=== PATIENT | female | born 1955 | race Caucasian/White ===

== ENCOUNTER 2020-08-27 09:52 | Outpatient (REF) | payer OTHER, SELFPAY ==
[2020-08-27 12:19] LABS: MANUAL DIFF FLAG NO
[2020-08-27 12:22] LABS: Basophils Percent Auto 0.6 % (0-2); Eosinophils Absolute Auto 0.3 X10*3/uL (0.0-0.4); Imm Gran Abs Auto 0.01 X10*3/uL (0.00-0.03); Imm Gran Pct Auto 0.2 % (0.0-0.4); Lymphocytes Absolute Auto 1.9 X10*3/uL (1.2-4.9); Lymphocytes Percent Auto 29.7 % (20-40); Mean Corpuscular HGB Conc 33.3 g/dl (31.0-35.0); Mean Corpuscular Hemoglobin 30.7 pg (27.0-33.0); Mean Corpuscular Volume 92.2 fL (80-98); Mean Platelet Volume 10.9 fL (9.4-12.3); Monocytes Absolute Auto 0.3 X10*3/uL (0.1-1.2); Monocytes Percent Auto 4.6 % (2-11); Neutrophils Absolute Auto 3.9 X10*3/uL (2.0-8.3); Neutrophils Percent Auto 60.9 % (45-73); Platelet Count 204 X10*3/uL (160-400); Red Blood Count 4.23 X10*6/uL (4.20-5.50); Red Cell Distribution Width 12.4 % (11.0-16.0); White Blood Count 6.3 X10*3/uL (4.8-10.8)
[2020-08-27 12:41] LABS: Alanine Aminotransferase 13 U/L (0-31); Albumin Level 4.5 g/dL (3.5-5.0); Alkaline Phosphatase 130 U/L (39-117); Anion Gap 12 (12-20); Aspartate Amino Transferase 19 U/L (5-31); Bilirubin Total 0.5 mg/dL (0.0-1.0); Blood Urea Nitrogen 15 mg/dL (9-16); Calcium 9.8 mg/dL (8.4-10.2); Carbon Dioxide 26 mmol/L (22-29); Chloride 105 mmol/L (96-108); Cholesterol 308 mg/dL; Estimated Glomerular Filt Rate > 60; Glucose Fasting 87 mg/dL (60-99); Glucose Urine UA NEG (NEG); HDL Cholesterol 49 mg/dL; LDL Cholesterol Calculated 235 mg/dl; Leukocyte Esterase Urine NEG (NEG); Nitrite Urine NEG (NEG); PH 5.5 (5.0-8.0); Potassium 4.2 mmol/l (3.3-5.1); Sodium 139 mmol/L (135-145); Specific Gravity - Urine >= 1.030 (1.005-1.025); Total Protein 7.1 g/dL (6.5-8.0); Triglycerides 120 mg/dL; Urine Blood 2+ (NEG); Urine Ketones NEG (NEG); Urine Protein NEG (NEG-TRACE)
[2020-08-27 12:43] LABS: Appearance Urine CLOUDY; Color Urine YELLOW
[2020-08-27 12:53] LABS: Amorphous Sediment Urine 3+ /LPF; Mucus Urine 2+ /LPF; WBC Urine 0 /HPF (0-4)
[2020-08-27 13:03] LABS: Thyroid Stimulating Hormone 0.82 mIU/mL (0.32-4.0); Vitamin D 25-OH Total 23.6 ng/mL (>30)
== END 2020-08-27 09:53 | disposition home or self-care (01) ==
LOC: HO.10HDL 09:52
PROVIDERS: Visit Provider Internal Medicine
DX: E55.9 Vitamin D deficiency, unspecified (principal); R03.0 Elevated blood-pressure reading, without diagnosis of hypertension; E78.00 Pure hypercholesterolemia, unspecified; R00.2 Palpitations
CPT/HCPCS: 36415; 80053; 80061; 81001; 82306; 84443; 85025

== ENCOUNTER 2020-09-29 09:00 | Outpatient (REF) | payer OTHER, SELFPAY ==
--- NOTE | 2020-09-29 09:06 | MM_ITS ---
EXAMINATION: MM SCREENING DIGITAL BREAST TOMOSYNTHESIS, BILATERAL CLINICAL INFORMATION: Screening. Asymptomatic. The lifetime risk of breast cancer based on the Tyrer-Cuzick Model is 7%. COMPARISON: Mammography: 09/24/2019, 08/19/2018, 02/14/2018, 07/26/2017 TECHNIQUE: Digital breast tomosynthesis is performed in both the craniocaudal and mediolateral oblique views along with computer-aided detection (CAD). Synthesized 2D images are generated from the tomosynthesis. FINDINGS: The breasts are heterogeneously dense, which may obscure small masses (ACR BI-RADS breast composition Category c). Parenchymal pattern is similar to prior studies. There is fibronodular parenchymal pattern. There is no significant mass or architectural abnormality or developing density. No suspicious calcifications. The skin contours are smooth. MM/MM tomosynthesis screening BI IMPRESSION: No significant changes from prior studies. ASSESSMENT: BI-RADS 1: Negative RECOMMENDATION: Routine annual mammography screening. This patient's information was entered into a reminder system with a target due date for their next mammogram.
== END 2020-09-29 09:01 | disposition home or self-care (01) ==
LOC: HO.MAMMO 09:00
PROVIDERS: PCP Internal Medicine; Visit Provider Obstetrics & Gynecology
DX: Z12.31 Encounter for screening mammogram for malignant neoplasm of breast (principal)
CPT/HCPCS: 77063; 77067

== ENCOUNTER 2020-11-14 08:39 | Outpatient (REF) | payer OTHER, SELFPAY ==
[2020-11-14 09:44] LABS: Influenza A PCR NEGATIVE (Negative); Influenza B PCR NEGATIVE (Negative); Resp Syncy Virus RNA Qual PCR NEGATIVE (Negative); SARS COV2 PCR INHOUSE NEGATIVE (Negative)
== END 2020-11-14 08:40 | disposition home or self-care (01) ==
LOC: HO.LAB 08:39
PROVIDERS: Visit Provider Internal Medicine
DX: Z20.828 Contact with and (suspected) exposure to other viral communicable diseases (principal)
CPT/HCPCS: 0241U

== ENCOUNTER 2020-12-01 | Outpatient (REF) | payer OTHER, SELFPAY ==
[2020-12-08 15:02] LABS: HPV mRNA E6/E7 rflx Not Detected (Not Detected)
== END 2020-12-01 00:01 | disposition home or self-care (01) ==
LOC: HO.LNP
PROVIDERS: Visit Provider Obstetrics & Gynecology
DX: Z12.4 Encounter for screening for malignant neoplasm of cervix (principal)
CPT/HCPCS: 87624; 88141; 88142

== ENCOUNTER 2020-12-03 08:41 | Emergency (ER) | payer OTHER, SELFPAY ==
--- NOTE | 2020-12-03 08:46 | ED.CHESTPAIN ---
HPI - Chest Pain General Chief Complaint: Chest Pain Stated Complaint: chest pain Time Seen by Provider: 12/03/20 08:45 Source: patient Mode of arrival: ambulatory Limitations: no limitations History of Present Illness MD complaint: chest pain Pertinent past history: other (dx with COVID at [facility] more than 10 days ago) Onset (ago): minute(s) (chest pain started around 8am) Timing of current episode: constant Prior episodes: No Onset: during rest Pain location: substernal Pain radiation: none Severity: mild Quality: aching Relieving factors: nothing Exacerbating factors: nothing Context: recent illness (dx with COVID) Associated symptoms: dyspnea Treatment prior to arrival: aspirin (took 324mg ASA) Related Data Home Medications Medication Instructions Recorded Confirmed albuterol sulfate [Ventolin HFA] INHALATION 12/03/20 12/03/20 juwcbrejlh-hzyqrjikevcft-wcug 1 tab PO Q6H PRN 12/03/20 12/03/20 rizatriptan 1 tab PO DAILY 12/03/20 12/03/20 ropinirole 1 - 2 tab PO BEDTIME 12/03/20 12/03/20 Allergies Allergy/AdvReac Type Severity Reaction Status Date / Time diphenhydramine Allergy Agitated Verified 12/03/20 09:00 [From Benadryl] Review of Systems Review of Systems: Constitutional : No Weight loss, No Fever, No Chills ENT/Mouth : No sore throat, No Rhinorrhea Eyes: No Eye Pain, No Swelling Cardiovascular : pos Chest Pain, pos SOB, no Dyspnea on Exertion, No Orthopnea, No Edema, No Palpitations Respiratory : No Cough, No Sputum Gastrointestinal : no Nausea, No Vomiting, No Diarrhea, No abdominal Pain, No Hematochezia, No Melena Genitourinary : No Dysuria, No Urinary Frequency Musculoskeletal : No joint pain, No Myalgias, No Joint Swelling Skin : No Skin Lesions, No rash Neuro : No Weakness, No Numbness, No Dizziness, No Headache, felt weak and near syncopal after getting out of shower Psych : No Anxiety/Panic, No Depression Heme/Lymph: No Bruising, No Lymphadenopathy Endocrine : No Polyuria, No Polydipsia All other systems reviewed and are negative [facility] Past Medical History Attestation statement: The following information was validated with the patient. Medical History GERD (gastroesophageal reflux disease) Hypercholesteremia Migraine Restless leg syndrome Surgical History History of left knee replacement Social History Social History (Updated 12/03/20 @ 09:02 by Chanell Noel DO) Smoking Status: Never smoker Smoked in Last 30 Days: No Use of substances other than those prescribed or required for medical reasons: No Advance Directives: No Advance Directives Information Provided: No Advance Directives Date on File: 08/27/20 Physical Exam Vital Signs: Vital Signs: Last Vital Signs Temp 98.4 F 12/03/20 12:16 Pulse 57 12/03/20 12:16 Resp 16 12/03/20 12:16 BP 130/67 12/03/20 12:16 Pulse Ox 99 12/03/20 12:16 Body Mass Index 32.4 Appearance: Alert. Oriented X3. No acute distress. Eyes: Pupils equal, round and reactive to light. ENT: Pharynx normal. Neck: Normal inspection. Neck supple. CVS: Normal heart rate and rhythm. Pulses normal. Respiratory: No respiratory distress. Breath sounds normal. Abdomen: Soft and non-tender. Skin: Skin warm and dry. Normal skin color. Normal skin turgor. Extremities: No lower extremity edema. No calf ttp Neuro: Oriented X 3. No motor deficit. No sensory deficit. Course Course Course Narrative: repeat trop negative, PE negative, EKG negative stable for DC MDM - Chest Pain MDM Narrative Medical decision making narrative: 65 yo female with recent COVID dx here with chest pain while in the shower - she took ASA prior to arrival, no prior cardiac hx at this time will need labs, troponin x 2, EKG, CTA given COVID dx and possibility of PE - patient declines pain medications at this time. Lab Data Result diagrams: 12/03/20 09:12 12/03/20 09:12 Labs: Lab Results 12/03/20 12/03/20 12/03/20 Range/Units 09:12 09:12 09:12 WBC 6.7 (4.8-10.8) X10*3/uL RBC 4.51 (4.20-5.50) X10*6/uL Hgb 13.6 (12.0-16.0) g/dl Hct 41.9 (37-47) % MCV 92.9 (80-98) fL MCH 30.2 (27.0-33.0) pg MCHC 32.5 (31.0-35.0) g/dl RDW 12.2 (11.0-16.0) % Plt Count 252 (160-400) X10*3/uL MPV 10.0 (9.4-12.3) fL Immature Gran % (Auto) 0.3 (0.0-0.4) % Neut % (Auto) 62.8 (45-73) % Lymph % (Auto) 27.6 (20-40) % [place] % (Auto) 4.5 (2-11) % Eos % (Auto) 4.5 H (0-4) % Baso % (Auto) 0.3 (0-2) % Lymph # (Auto) 1.8 (1.2-4.9) X10*3/uL [place] # (Auto) 0.3 (0.1-1.2) X10*3/uL Eos # (Auto) 0.3 (0.0-0.4) X10*3/uL Baso # (Auto) 0.0 (0.0-0.2) X10*3/uL Abs Immat Gran (auto) 0.02 (0.00-0.03) X10*3/uL Absolute Neuts (auto) 4.2 (2.0-8.3) X10*3/uL Absolute Nucleated RBC 0.000 (0.0-0.012) X10*3/uL Nucleated RBC % (auto) 0.0 (0.0-0.2) /100WBC PT (10.8-13.0) SEC INR (0.9-1.1) APTT (24.1-38.0) SEC Sodium 141 (135-145) mmol/L Potassium 4.7 (3.3-5.1) mmol/l Chloride 104 (96-108) mmol/L Carbon Dioxide 24 (22-29) mmol/L Anion Gap 18 (12-20) BUN 12 (9-16) mg/dL Creatinine 0.82 (0.5-1.4) mg/dL Estim Creat Clear Calc 71.7 Estimated GFR > 60 Random Glucose 93 (60-115) mg/dL Calcium 9.9 (8.4-10.2) mg/dL Magnesium 2.3 (1.6-2.6) mg/dL Total Bilirubin 0.4 (0.0-1.0) mg/dL Direct Bilirubin < 0.2 (0.0-0.5) mg/dL AST 22 (5-31) U/L ALT 15 (0-31) U/L Alkaline Phosphatase 131 H (39-117) U/L Troponin I High Sens (<3.5-17.0) ng/L B-Natriuretic Peptide < 10 (<100) pg/mL Total Protein 7.5 (6.5-8.0) g/dL Albumin 4.6 (3.5-5.0) g/dL 12/03/20 12/03/20 12/03/20 Range/Units 09:12 09:12 12:23 WBC (4.8-10.8) X10*3/uL RBC (4.20-5.50) X10*6/uL Hgb (12.0-16.0) g/dl Hct (37-47) % MCV (80-98) fL MCH (27.0-33.0) pg MCHC (31.0-35.0) g/dl RDW (11.0-16.0) % Plt Count (160-400) X10*3/uL MPV (9.4-12.3) fL Immature Gran % (Auto) (0.0-0.4) % Neut % (Auto) (45-73) % Lymph % (Auto) (20-40) % [place] % (Auto) (2-11) % Eos % (Auto) (0-4) % Baso % (Auto) (0-2) % Lymph # (Auto) (1.2-4.9) X10*3/uL [place] # (Auto) (0.1-1.2) X10*3/uL Eos # (Auto) (0.0-0.4) X10*3/uL Baso # (Auto) (0.0-0.2) X10*3/uL Abs Immat Gran (auto) (0.00-0.03) X10*3/uL Absolute Neuts (auto) (2.0-8.3) X10*3/uL Absolute Nucleated RBC (0.0-0.012) X10*3/uL Nucleated RBC % (auto) (0.0-0.2) /100WBC PT 12.6 (10.8-13.0) SEC INR 1.1 (0.9-1.1) APTT 38.3 H (24.1-38.0) SEC Sodium (135-145) mmol/L Potassium (3.3-5.1) mmol/l Chloride (96-108) mmol/L Carbon Dioxide (22-29) mmol/L Anion Gap (12-20) BUN (9-16) mg/dL Creatinine (0.5-1.4) mg/dL Estim Creat Clear Calc Estimated GFR Random Glucose (60-115) mg/dL Calcium (8.4-10.2) mg/dL Magnesium (1.6-2.6) mg/dL Total Bilirubin (0.0-1.0) mg/dL Direct Bilirubin (0.0-0.5) mg/dL AST (5-31) U/L ALT (0-31) U/L Alkaline Phosphatase (39-117) U/L Troponin I High Sens < 3.5 < 3.5 (<3.5-17.0) ng/L B-Natriuretic Peptide (<100) pg/mL Total Protein (6.5-8.0) g/dL Albumin (3.5-5.0) g/dL ECG Data ECG #1: Attestation: I personally reviewed and interpreted this ECG as follows: ECG interpretation date: 12/03/20 ECG interpretation time: 09:08 Interpretation: Rate: 58 Rhythm: sinus bradycardia [place]: left Normal P waves. Normal DAMIAN. Normal QRS complex. ST T wave : normal no JAVID qTC: normal prior studies: artfiact noted but no acute ischemia The study has been interpreted contemporaneously by me. . Discharge Plan Discharge Clinical Impression: Atypical chest pain Patient Disposition: Home, Self-Care Instructions: Chest Pain (ED) Additional Instructions: return to ED for any worsening symptoms or concerns Prescriptions: No Action rizatriptan 10 mg tablet 1 tab PO DAILY RF: 0 hjmmafbpok-ashvixnblxrfe-fkiq 50-325-40 mg tablet 1 tab PO Q6H PRN (Reason: headache) RF: 0 ropinirole 0.25 mg tablet 1 - 2 tab PO BEDTIME RF: 0 albuterol sulfate [Ventolin HFA] 90 mcg/actuation HFA aerosol inhaler inhalation RF: 0 Referrals: Baldo Flaherty MD [Primary Care Provider] - 3 days (if not better) Stand Alone Forms: Work/School Release
--- NOTE | 2020-12-03 08:51 | CT_ITS ---
EXAMINATION: CT ANGIOGRAM OF THE CHEST WITH AND WITHOUT CONTRAST (CT PULMONARY ANGIOGRAM FOR PE) CLINICAL INFORMATION: Reason for Exam chest pain recent COVID dx COMPARISON: CXR from 05/28/2017 TECHNIQUE: Prior to contrast administration, noncontrast localization images were obtained. Subsequently, multidetector volumetric imaging was performed from the thoracic inlet to below the diaphragms following the administration of 80 mL Omnipaque 300 intravenous contrast. No contrast reaction reported. Sagittal, coronal, and MIP oblique sagittal reformatted images were obtained on the CT workstation, uploaded to PACS, and reviewed. This CT examination was performed using dose optimization techniques as appropriate, variously including the following: *Automated exposure control *Adjustment of mA and/or kV according to patient size (this includes techniques or standardized protocols for targeted exams where dose is matched to indication/reason for exam; i.e. extremities or head) *Use of iterative reconstruction technique DLP: Total exam dose-length product 334 mGy-cm FINDINGS: LUNGS AND PLEURA: Trachea and central airways are widely patent and normal in caliber. There are mild patchy groundglass opacities in the anterolateral aspect of the right upper lobe and lateral left lower lobe which, given history of Covid 19 diagnosis, are likely from viral pneumonia. The minimal hazy opacity in the dependent aspect of the right lower lobe probably represents minimal atelectasis. No pulmonary mass, edema, pleural effusion or pneumothorax. QUALITY OF STUDY/CONTRAST BOLUS: Satisfactory. CARDIOVASCULAR: The pulmonary arteries are normal in size. No embolic filling defects are identified within the main, lobar or segmental vessels. The heart size is normal. No pericardial effusion. Thoracic aorta is unremarkable. MEDIASTINUM/LOWER NECK: Thyroid gland and esophagus have a normal appearance. No mediastinal mass. No pneumomediastinum. LYMPHATICS: No pathologic sized axillary, hilar or mediastinal lymph nodes. UPPER ABDOMEN: No contrast reflux into the inferior vena cava. A 1.5 cm simple cyst of the posterior superior spleen was 1.2 cm on 06/20/2019. OSSEOUS STRUCTURES: Multilevel discovertebral degenerative change of the visualized lower cervical and thoracic spine. Within the thoracic spine, disc degeneration is worst at T8-T9 and T9-T10. There is mild pectus excavatum. Hemangioma of the L1 vertebral body. No aggressive osseous lesions. CT/CT angio chest PE protocol IMPRESSION: * No evidence of pulmonary embolism. * Mild peripheral groundglass opacity in lateral right upper lobe and lateral left lower lobe. Although nonspecific, these opacities are probably from viral pneumonitis in this patient with Covid 19 diagnosis.
--- NOTE | 2020-12-03 08:51 | ECG_ITS ---
Test Reason : CHESTPAIN Blood Pressure : / mmHG Vent. Rate : 058 BPM Atrial Rate : 058 BPM P-R Int : 168 ms QRS Dur : 084 ms QT Int : 454 ms P-R-T Axes : 056 -37 020 degrees QTc Int : 445 ms Sinus bradycardia Left axis deviation Nonspecific ST and T wave abnormality Abnormal ECG When compared with ECG of 28-MAY-2017 17:23, Aberrant conduction is no longer Present T wave inversion less evident in Anterior leads Referred By: Chanell Noel Electronically Signed By:LEIGH ALEGRE MD
[2020-12-03 08:55] VITALS: BP 139/86; PULSE 60; RESP 15; TEMP 36.7; BMI 32.4
[2020-12-03] MEDS: 0.9 % Sodium Chloride 500 ML IV (09:13)
[2020-12-03 09:19] LABS: MANUAL DIFF FLAG NO
[2020-12-03 09:22] LABS: Basophils Percent Auto 0.3 % (0-2); Eosinophils Absolute Auto 0.3 X10*3/uL (0.0-0.4); Eosinophils Percent Auto 4.5 % (0-4); Hematocrit 41.9 % (37-47); Hemoglobin 13.6 g/dl (12.0-16.0); Imm Gran Abs Auto 0.02 X10*3/uL (0.00-0.03); Imm Gran Pct Auto 0.3 % (0.0-0.4); Lymphocytes Absolute Auto 1.8 X10*3/uL (1.2-4.9); Lymphocytes Percent Auto 27.6 % (20-40); Mean Corpuscular HGB Conc 32.5 g/dl (31.0-35.0); Mean Corpuscular Hemoglobin 30.2 pg (27.0-33.0); Mean Corpuscular Volume 92.9 fL (80-98); Monocytes Absolute Auto 0.3 X10*3/uL (0.1-1.2); Monocytes Percent Auto 4.5 % (2-11); Neutrophils Absolute Auto 4.2 X10*3/uL (2.0-8.3); Neutrophils Percent Auto 62.8 % (45-73); Platelet Count 252 X10*3/uL (160-400); Red Blood Count 4.51 X10*6/uL (4.20-5.50); Red Cell Distribution Width 12.2 % (11.0-16.0); White Blood Count 6.7 X10*3/uL (4.8-10.8)
[2020-12-03 09:28] LABS: INTERNATIONAL NORM RATIO 1.1 (0.9-1.1); Prothrombin Time 12.6 SEC (10.8-13.0)
[2020-12-03 09:31] LABS: Partial Thromboplastin Time 38.3 SEC (24.1-38.0)
[2020-12-03 09:55] LABS: B Type Natriuretic Peptide < 10 pg/mL (<100)
[2020-12-03 10:14] LABS: Troponin-I High Sensitivity < 3.5 ng/L (<3.5-17.0)
[2020-12-03 10:26] LABS: Alanine Aminotransferase 15 U/L (0-31); Albumin Level 4.6 g/dL (3.5-5.0); Alkaline Phosphatase 131 U/L (39-117); Anion Gap 18 (12-20); Aspartate Amino Transferase 22 U/L (5-31); Bilirubin Direct < 0.2 mg/dL (0.0-0.5); Bilirubin Total 0.4 mg/dL (0.0-1.0); Blood Urea Nitrogen 12 mg/dL (9-16); Calcium 9.9 mg/dL (8.4-10.2); Carbon Dioxide 24 mmol/L (22-29); Chloride 104 mmol/L (96-108); Creatinine Clr Calc Pharmacy 71.7; Estimated Glomerular Filt Rate > 60; Glucose Random 93 mg/dL (60-115); Magnesium 2.3 mg/dL (1.6-2.6); Potassium 4.7 mmol/l (3.3-5.1); Sodium 141 mmol/L (135-145); Total Protein 7.5 g/dL (6.5-8.0)
[2020-12-03] MEDS: iohexoL 350 MG/ML 100 ML INFUS..BTL 65 ML IV (10:44)
[2020-12-03 12:16] VITALS: BP 130/67; PULSE 57; RESP 16; TEMP 36.9; O2SAT 99
[2020-12-03 13:07] LABS: Troponin-I High Sensitivity < 3.5 ng/L (<3.5-17.0)
== END 2020-12-03 13:24 | disposition home or self-care (01) ==
PROVIDERS: Emergency Provider Emergency Medicine; PCP Internal Medicine
DX: R07.89 Other chest pain (principal); Z86.16 Personal history of COVID-19; K21.9 Gastro-esophageal reflux disease without esophagitis
CPT/HCPCS: 36415; 71275; 80048; 80076; 83735; 83880; 84484; 85025; 85610; 85730; 93005; 96360; 99284; Q9967

== ENCOUNTER 2021-01-03 08:56 | Outpatient (REF) | payer OTHER, SELFPAY ==
--- NOTE | ~2021-01-03 | XR_ITS ---
EXAMINATION: XR HIP, RIGHT CLINICAL INFORMATION: Right hip pain COMPARISON: CT pelvis from 06/20/2019 TECHNIQUE: Two views of the right hip. FINDINGS: The visualized right pelvic bones are normal. The right hip joint space is normal. The femoral head is well-positioned within the intact acetabulum. No arthritic deformity, fracture or subluxation. Soft tissues are unremarkable. XR/XR hip RT min 2V IMPRESSION: Normal right hip.
== END 2021-01-03 08:57 | disposition home or self-care (01) ==
LOC: HO.HMGCX 08:56
PROVIDERS: PCP Internal Medicine; Visit Provider Hospitalist
DX: M25.551 Pain in right hip (principal)
CPT/HCPCS: 73502

== ENCOUNTER 2021-01-06 13:50 | Outpatient (REF) | payer OTHER, SELFPAY ==
--- NOTE | ~2021-01-06 | US_ITS ---
EXAMINATION: US EXTREMITY NONVASCULAR, RIGHT CLINICAL INFORMATION: R22.41 - Localized swelling, mass and lump, right lower limb COMPARISON: Radiographs right hip 01/03/2021; CT pelvis with contrast 07/08/2019. TECHNIQUE: Real-time linear ultrasound of the right hip soft tissues is performed, targeted to the area of clinical concern superior lateral aspect. Patient is able to point to area of concern at time of imaging. Grayscale imaging and color Doppler are performed. FINDINGS: There is subtle heterogeneous increased echogenicity within the superficial musculature at the area of clinical concern composition in area of approximately 3.0 x 1.4 x 3.0 cm. There is no posterior shadowing or abnormal color flow. No edema tracking in soft tissue planes. No skin thickening. No fascial herniation. US/US extremity nonvascular IMPRESSION: Subtle heterogeneous increased echogenicity superficial musculature in area of clinical concern measuring 3.0 x 1.4 x 3.0 cm. No edema tracking in soft tissue planes, abnormal color flow, or fascial herniation. Finding is nonspecific and may be best correlated with MRI without and with gadolinium contrast.
== END 2021-01-06 13:51 | disposition home or self-care (01) ==
LOC: HO.HMGCX 13:50
PROVIDERS: Visit Provider Hospitalist
DX: R22.41 Localized swelling, mass and lump, right lower limb (principal)
CPT/HCPCS: 76882

== ENCOUNTER 2021-01-10 07:44 | Outpatient (REF) | payer OTHER, SELFPAY ==
--- NOTE | ~2021-01-10 | MR_ITS ---
EXAMINATION: MR HIP WITHOUT AND WITH CONTRAST, RIGHT CLINICAL INFORMATION: Localized swelling, mass and lump, right lower limb. Patient reports right hip lump and pain, lump for a couple of weeks, anterior lump, tender to lay or push on, and no recent injury. COMPARISON: US right hip 01/06/2021. XR right hip 01/03/2021. TECHNIQUE: MRI of the right hip was performed before and after the intravenous injection of 8.5 mL Gadavist on a high-field scanner. A skin marker was placed at the symptomatic site. FINDINGS: ACETABULAR LABRUM: The anterosuperior labrum is not particularly well evaluated but is otherwise grossly intact. The lateral and posterior labrum are intact. ARTICULAR CARTILAGE/BONE: Intact. MUSCLES/TENDONS: There is moderate right distal gluteus minimus insertional tendinosis and possible low-grade partial tearing. There is mild right distal gluteus medius insertional tendinosis. JOINT FLUID/BURSA: There is no joint effusion. There is trace fluid adjacent to the gluteus minimus and medius insertion sites on the right greater trochanter. This could be related to the tendinosis or minor bursitis. SOFT TISSUES: There is prominent subcutaneous fat. There is one area of deep, slightly posterior, and slightly inferior to the skin marker, lateral to the right hip, which may be slightly more prominent and lobulated, measuring 2.3 x 2.1 x 2.9 cm (CC x TRV x AP). This could just represent a slightly more prominent lobule of fat or a subtle lipoma. A tiny focus of increased T2 signal intensity and enhancement is most likely related to a vessel. INTRAPELVIC STRUCTURES: Unremarkable. MR/MR hip RT wo/w con IMPRESSION: 1. Lobule of prominent subcutaneous fat versus subtle low-grade lipomatous lesion (lipoma) in the subcutaneous fat lateral to the right hip. Correlate clinically. 2. Moderate right distal gluteus minimus insertional tendinosis and possible low-grade partial tearing. Mild right distal gluteus medius insertional tendinosis. Trace fluid adjacent to these tendon insertions which could be related to the tendinosis or minor trochanteric bursitis.
== END 2021-01-10 07:45 | disposition home or self-care (01) ==
LOC: HO.MRI 07:44
PROVIDERS: Visit Provider Hospitalist
DX: R22.41 Localized swelling, mass and lump, right lower limb (principal)
CPT/HCPCS: 73723; A9585

== ENCOUNTER 2021-01-14 07:03 | Day surgery (SDC) | payer OTHER, SELFPAY ==
[2021-01-07 14:05] VITALS: BMI 31.8
--- NOTE | 2021-01-12 13:28 | HO.ANESPROP2 ---
Documented by User: Sloane Soto 01/12/21 13:45 HPI - Anesthesia Eval Consult details Narrative: 65yo F for Upper Endoscopy and Colonoscopy 11/2020 ED visit for atypical CP (with concurrent COVID+). ACS r/o, PE r/o. and sent home. [facility] Active Problems Active Problems: All Active Problems (Updated 01/07/21 @ 14:00 by Anna Rock) Left hip pain (Acute) Right hip pain (Acute) Mass of right hip region (Acute) Past Medical History Medical History Asthma GERD (gastroesophageal reflux disease) History of COVID-19 History of kidney stones Hypercholesteremia Lumbar disc disease Migraine Restless leg syndrome Surgical History Surgical History History of left knee replacement Hx of colonoscopy Hx of hemorrhoidectomy Social History Social History Are you a primary medication care manager to a significant other at home: No Do you presently have visiting nurse or other home services: No Smoking Status: Never smoker Second Hand Smoke Exposure: No Use of substances other than those prescribed or required for medical reasons: No Have you been hit, kicked, punched, or otherwise hurt by someone within the past year? If so, by whom?: No Advance Directives: No Advance Directives Information Provided: No Advance Directives on File: No Advance Directives Date on File: 08/27/20 Recently lost weight without trying: No Meds Allergies Allergy/AdvReac Type Severity Reaction Status Date / Time diphenhydramine Allergy Agitated Verified 01/07/21 14:01 [From Benadryl] Home Medications Medication Instructions Recorded Confirmed Last Taken Type albuterol sulfate [Ventolin HFA] 1 puff INHALATION Q4-6H PRN 12/03/20 12/06/20 Unknown History tjcqwbxtlo-ifmgjcqjbxxdb-fcgo 1 tab PO Q6H PRN 12/03/20 12/06/20 Unknown History rizatriptan 1 tab PO DAILY 12/03/20 12/06/20 Unknown History ropinirole 1 - 2 tab PO BEDTIME 12/03/20 12/06/20 Unknown History omeprazole 20 mg PO DAILY 12/06/20 12/06/20 Unknown History Exam Exam Date and Time: January 12, 2021 1328 Height,Weight and Vital Signs: Height 5 ft 3 in Weight 81.647 kg Pertinent Lab Results Pertinent Lab Results: Laboratory Tests 12/03/20 12/03/20 09:12 09:12 WBC 6.7 Hgb 13.6 Hct 41.9 Plt Count 252 Sodium 141 Potassium 4.7 Chloride 104 Carbon Dioxide 24 BUN 12 Creatinine 0.82 Narrative Narrative: CT angio chest PE protocol 11/2020 IMPRESSION: * No evidence of pulmonary embolism. * Mild peripheral groundglass opacity in lateral right upper lobe and lateral left lower lobe. Although nonspecific, these opacities are probably from viral pneumonitis in this patient with Covid 19 diagnosis. EKG 11/2020 Sinus bradycardia Left axis deviation Nonspecific ST and T wave abnormality Abnormal ECG When compared with ECG of 28-MAY-2017 17:23, Aberrant conduction is no longer Present T wave inversion less evident in Anterior leads Assessment and Plan Assessment Anesthesia Assessment: Chart Reviewed Documented by User: Loulou Shukla 01/14/21 08:22 [facility] Past Medical History Medical History Asthma GERD (gastroesophageal reflux disease) History of COVID-19 History of kidney stones Hypercholesteremia Lumbar disc disease Migraine Restless leg syndrome Surgical History Surgical History History of left knee replacement Hx of colonoscopy Hx of hemorrhoidectomy Social History Social History Are you a primary medication care manager to a significant other at home: No Do you presently have visiting nurse or other home services: No Smoking Status: Never smoker Second Hand Smoke Exposure: No Use of substances other than those prescribed or required for medical reasons: No Have you been hit, kicked, punched, or otherwise hurt by someone within the past year? If so, by whom?: No Advance Directives: No Advance Directives Information Provided: No Advance Directives on File: No Advance Directives Date on File: 08/27/20 Recently lost weight without trying: No Meds Allergies Allergy/AdvReac Type Severity Reaction Status Date / Time diphenhydramine Allergy Agitated Verified 01/07/21 14:01 [facility] Home Medications Medication Instructions Recorded Confirmed Last Taken Type albuterol sulfate [Ventolin HFA] 1 puff INHALATION Q4-6H PRN 12/03/20 12/06/20 Unknown History acilisfwyv-fzqufykmxgqmq-ytws 1 tab PO Q6H PRN 12/03/20 12/06/20 Unknown History rizatriptan 1 tab PO DAILY 12/03/20 12/06/20 Unknown History ropinirole 1 - 2 tab PO BEDTIME 12/03/20 12/06/20 Unknown History omeprazole 20 mg PO DAILY 12/06/20 12/06/20 Unknown History Exam Airway Mallampati Class: II TM Dist: >3cm Neck ROM: Full Loose/Missing/Broken Teeth: No Heart: RRR Lungs: CTA Assessment and Plan Assessment Anesthesia Assessment: Anesthesia Plan Discussed and Chart Reviewed Final Anesthetic Review NPO: Yes ASA Class: II Final Preanesthetic Review: Meds/Allgs Chart Reviewed, Consent Obtained/Reviewed and Anes Risks/Benef Reviewed Patient Risk: Low Procedure Risk: Intermediate Anesthetic Plan Anesthetic Plan: MAC: Disposition: Standard PACU
[2021-01-14 07:38] VITALS: BP 140/81; PULSE 70; RESP 20; TEMP 36.6; O2SAT 96
[2021-01-14] MEDS: Lactated Ringers 1,000 ML 100 ML IVCONT (07:44)
--- NOTE | 2021-01-14 07:57 | P.HPSUR_ITS ---
Pre-Procedural Eval Section B Chief Complaint: reflux,screening Details of Present Illness: see H&P no changes Relevant Family History (Specify if Yes): No Relevant Social History: None Present Medications: None Medical History: No relevant PMH (recent Covid infection 11/07) History of Previous Operations: No relevant previous surgery Allergies: Allergies Allergy/AdvReac Type Severity Reaction Status Date / Time diphenhydramine Allergy Agitated Verified 01/07/21 14:01 [From Benadryl] Review of Systems Sugical H&P ROS: Negative: Constitution, Cardiovascular, Respiratory, Neurological, Psychiatric, Hem-Onc, Allergic/Immunologic, Gastrointestinal, G enitourinary, Musculoskeletal, Integumentary, Endocrine and Eyes/Ears/Nose/Throat Exam Surgical H&P Exam: Normal: HEENT, Normal: Heart, Normal: Lungs, Normal: Extremities, Normal: Abdomen, Normal: Skin and Normal: Neurological Plan Diagnosis/Plan: Unchanged I have reviewed the history and physical and performed a pertinent physical examination on my patient. No changes have occurred unless specified.
[2021-01-14 08:32] VITALS: BP 131/77; PULSE 59; RESP 17; TEMP 36.5; O2SAT 98
--- NOTE | 2021-01-14 08:32 | PM.OP ---
Brief Operative Note Date of Service: 01/14/21 Pre-op diagnosis: gerd, screening Post-op diagnosis: same (colon polyp, gastric polyps) Procedure: upper endoscopy, colonoscopy Surgeon: Oswald Younger Anesthesia: MAC Estimated blood loss (mL): 5 Pathology: other (bx egj, antrum , gastric polyps, colon polyp) Disposition: PACU
[2021-01-14 08:47] VITALS: BP 131/77; PULSE 71; RESP 18; TEMP 36.5; O2SAT 100
--- NOTE | 2021-01-14 18:54 | OP_ITS ---
SURGEON: Oswald Younger MD INDICATIONS: 1. Gastroesophageal reflux disease. 2. Colon cancer screening. PREOPERATIVE DIAGNOSIS: POSTOPERATIVE DIAGNOSIS: PROCEDURE PERFORMED: ESTIMATED BLOOD LOSS: COMPLICATIONS: ANESTHESIA: ASSISTANTS: SPECIMENS: PROCEDURES PERFORMED: 1. Upper endoscopy with biopsy. 2. Colonoscopy to the terminal ileum with biopsy. MEDICATIONS: Monitored anesthesia care. DESCRIPTION OF PROCEDURE: History and physical was performed. The risks and benefits of the procedure were explained to the patient. Informed consent was obtained. The patient was placed in the left lateral decubitus position. The Olympus video gastroscope was introduced into the esophagus, stomach, and duodenum. Examination was performed. The scope was removed. She was repositioned for colonoscopy. A digital rectal exam was performed and was found to be normal. The Olympus pediatric video colonoscope was introduced into the rectum and advanced to the cecum without difficulty. The cecum was identified by transillumination, palpation, and identification of ileocecal valve. Examination was performed and the scope was removed. She tolerated both procedures well and was returned to recovery in stable condition. FINDINGS: UPPER ENDOSCOPY: Esophagus: The esophagus was normal. There was no esophagitis. Biopsies were obtained from the EG junction. Stomach: The stomach showed multiple less than 10-mm gastric polyps present in the body and fundus. These appeared benign, 2 were biopsied. Antral biopsies were obtained. There was mild erythema in the antrum suspicious for possible gastritis. Duodenum: The bulb and second portion were normal. COLONOSCOPY: The terminal ileum was examined and appeared normal. Quality of the prep was good. A single polyp measuring less than 5 mm identified at 55 cm and removed with biopsy forceps. No other polyps were identified. The quality of the prep was good. Retroflexed examination showed some small internal hemorrhoids. IMPRESSION: 1. Gastroesophageal reflux disease. 2. Gastric polyps. 3. Colon polyp. RECOMMENDATION: Follow up biopsy results. MD ORAL Wheat/JAYYL / [id number]
== END 2021-01-14 09:25 | disposition home or self-care (01) ==
PROVIDERS: PCP Internal Medicine; Visit Provider Internal Medicine Gastroenterology
PROC: (CPT 45380; principal; 2021-01-14 08:10)
DX: Z12.11 Encounter for screening for malignant neoplasm of colon (principal); K63.5 Polyp of colon; K64.8 Other hemorrhoids; K21.9 Gastro-esophageal reflux disease without esophagitis; K31.7 Polyp of stomach and duodenum; J45.909 Unspecified asthma, uncomplicated; Z79.899 Other long term (current) drug therapy; Z88.8 Allergy status to other drugs, medicaments and biological substances; Z86.16 Personal history of COVID-19
CPT/HCPCS: 45380; 43239; 88305; 88342

== ENCOUNTER 2021-03-17 08:26 | Outpatient (REF) | payer OTHER, SELFPAY ==
--- NOTE | ~2021-03-17 | US_ITS ---
EXAMINATION: US SOFT TISSUE OF THE NECK CLINICAL INFORMATION: Right posterior submandibular lump. COMPARISON: None TECHNIQUE: Linear transducer grayscale and color Doppler examination of the level II right submandibular lateral neck, just below ear lobe. Comparison imaging of the left neck was performed. FINDINGS: Palpable abnormality corresponds to an enlarged lymph node. This measures 2.4 x 1.4 x 0.5 cm in dimension. This is hypoechoic with cortical thickening. This demonstrates both hilar and cortical flow. The adjacent right submandibular gland is normal. Limited imaging of the left neck is normal. US/US soft tiss head and/or neck IMPRESSION: Palpable abnormality corresponds to an abnormal-appearing lymph node. Infectious, inflammatory and neoplastic processes should be considered.. Management should be determined on a clinical basis. If there is clinical suspicion of infection, short-term follow-up exam could be performed.. If there are no symptoms of acute infection or abnormality persists on follow-up imaging, lymph node would be amenable to fine-needle aspiration if clinically indicated.
== END 2021-03-17 08:27 | disposition home or self-care (01) ==
LOC: HO.HMGCX 08:26
PROVIDERS: Visit Provider Hospitalist
DX: M79.89 Other specified soft tissue disorders (principal)
CPT/HCPCS: 76536

== ENCOUNTER 2021-03-25 10:00 | Outpatient (RCR) | payer OTHER, SELFPAY ==
--- NOTE | 2021-01-24 12:52 | MHC.PT.EP ---
[facility] [place] Office [place] Office [place] Office [address] Harriett Case [address] [phone] F: [phone] F: [phone] F: [phone] F: [phone] Physical Therapy Plan of Care Date of Evaluation: 01/24/21 Date of Surgery: Diagnosis: R trochanteric bursitis, Right hip Assessment: Pt is a 66 y/o F with chief complaint of (R) hip pain that has worsening hip pain. PMH is significant for (L) TKA and previous lumbar herniation. Pt presents to PT with (R) posterior hip pain, gluteal weakness, gait/postural abnormalities, and (+) special testing. Pt gait abnormalities likely due to gluteal weakness resulting in trendelenburg gait pattern. Pt symptoms are consistent with gluteal hip tendinopathy resulting in pain with walking and stair climbing. Pt will benefit from skilled PT 2/week for 5 weeks to improve gluteal strength, reduce pain, and correct gait/postural abnormalities to aid in walking, stair climbing, gardening, and vacation to [place]. Frequency and Duration: The patient will be seen 2x/week for 5 weeks Short Term Goals: 3 Weeks: 1) pt will be independent in HEP to maintain gains between sessions 2) Pt pain will decrease 50% to aid in return to walking. Dice Maker Goals: 5 Weeks: 1) Pt gluteal strength will be >4/5 to aid in functional activity 2) Pt will be able to walk >45 minutes without increase in pain to aid in vacation to [place]. 3) Pt will be able to climb 1 flight of stairs with no increase in pain to aid in household ambulation. Treatment Plan: Modalities to reduce pain, spasms and effusion. Manual therapy to restore motion and function. Therapeutic exercise to improve strength and flexibility. Neuromuscular re-education for posture and balance. Therapeutic activities to return to functional activities of daily living. Electronically signed by: Jennifer Potter PT Please sign and return to therapist. Thank you for your referral.
--- NOTE | 2021-03-25 10:59 | MHC.PT.DC ---
[facility] Office [place] Office [place] Office [address] Harriett Case [address] [phone] F: [phone] F: [phone] F: [phone] F: [phone] Physical Therapy Discharge Report Diagnosis: R trochanteric bursitis, Right hip Date of Evaluation: 01/24/21 Date of Discharge: 03/25/21 Treatments to Date: 14 Cancellations to Date: 0 No Shows to Date: 0 Discharge Status: Achieved Goals, Improved Function, Independent with HEP Discharge Summary: Pt reports feeling better overall since starting PT and is able to walk longer distances, ascend/descend stairs in step through pattern, and I with HEP. Reports she still has decreased endurance and will have intermittent pain but much better. Reviewed HEP and pt appropriate for d/c. Oswestry 70/80. Electronically signed by: Jennifer Potter PT Please sign and return to therapist. Thank you for your referral.
== END 2021-03-25 11:01 | disposition home or self-care (01) ==
LOC: HO.PTCHIC 10:00
PROVIDERS: PCP Internal Medicine; Visit Provider Hospitalist
DX: M70.61 Trochanteric bursitis, right hip (principal)
CPT/HCPCS: 97033; 97110; 97112; 97140; 97161; 97530

== ENCOUNTER 2021-05-03 09:39 | Outpatient (REF) | payer OTHER, SELFPAY ==
[2021-05-03 11:28] LABS: MANUAL DIFF FLAG NO
[2021-05-03 11:52] LABS: Basophils Percent Auto 0.5 % (0-2); Eosinophils Absolute Auto 0.3 X10*3/uL (0.0-0.4); Eosinophils Percent Auto 4.4 % (0-4); Hemoglobin 13.1 g/dl (12.0-16.0); Imm Gran Abs Auto 0.02 X10*3/uL (0.00-0.03); Imm Gran Pct Auto 0.3 % (0.0-0.4); Lymphocytes Percent Auto 32.1 % (20-40); Mean Corpuscular HGB Conc 32.8 g/dl (31.0-35.0); Mean Corpuscular Hemoglobin 30.4 pg (27.0-33.0); Mean Corpuscular Volume 92.8 fL (80-98); Mean Platelet Volume 10.9 fL (9.4-12.3); Monocytes Absolute Auto 0.3 X10*3/uL (0.1-1.2); Neutrophils Absolute Auto 3.7 X10*3/uL (2.0-8.3); Neutrophils Percent Auto 57.7 % (45-73); Platelet Count 221 X10*3/uL (160-400); Red Blood Count 4.31 X10*6/uL (4.20-5.50); Red Cell Distribution Width 12.4 % (11.0-16.0); White Blood Count 6.4 X10*3/uL (4.8-10.8)
[2021-05-03 12:02] LABS: HIV AB/AG Nonreactive (Nonreactive); HIV Num 1 0.06 S/CO (0.00-0.99)
[2021-05-03 12:09] LABS: Thyroid Stimulating Hormone 0.86 uIU/mL (0.32-4.0)
[2021-05-03 12:14] LABS: Alanine Aminotransferase 15 U/L (0-31); Albumin Level 4.4 g/dL (3.5-5.0); Alkaline Phosphatase 126 U/L (39-117); Anion Gap 13 (12-20); Aspartate Amino Transferase 23 U/L (5-31); Bilirubin Total 0.6 mg/dL (0.0-1.0); Blood Urea Nitrogen 13 mg/dL (9-16); Calcium 9.6 mg/dL (8.4-10.2); Carbon Dioxide 25 mmol/L (22-29); Chloride 107 mmol/L (96-108); Cholesterol 289 mg/dL; Estimated Glomerular Filt Rate > 60; Glucose Fasting 89 mg/dL (60-99); HDL Cholesterol 57 mg/dL; LDL Cholesterol Calculated 207 mg/dl; Potassium 4.4 mmol/L (3.3-5.1); Sodium 141 mmol/L (135-145); Triglycerides 129 mg/dL
[2021-05-05 13:01] LABS: Hematocrit 39.6 % (35.0-45.0); Hemoglobin 13.3 g/dL (11.7-15.5); MCH 30.7 pg (27.0-33.0); MCV 91.5 fL (80.0-100.0); RBC 4.33 Million/uL (3.80-5.10); RDW 12.8 % (11.0-15.0)
[2021-05-09 12:16] LABS: IgA 184 mg/dL (70-320); IgG 932 mg/dL (600-1540); IgM 178 mg/dL (50-300)
== END 2021-05-03 09:40 | disposition home or self-care (01) ==
LOC: HO.HMGCLDS 09:39
PROVIDERS: PCP Internal Medicine; Visit Provider Internal Medicine
DX: Z11.4 Encounter for screening for human immunodeficiency virus [HIV] (principal); R59.0 Localized enlarged lymph nodes; E78.00 Pure hypercholesterolemia, unspecified
CPT/HCPCS: 36415; 80053; 80061; 82784; 83020; 84443; 85014; 85018; 85025; 85041; 86334; 87389

== ENCOUNTER 2021-06-06 08:33 | Outpatient (REF) | payer OTHER, SELFPAY ==
--- NOTE | ~2021-06-06 | US_ITS ---
EXAMINATION: US BIOPSY LYMPH NODE CLINICAL INFORMATION: Large right neck submandibular lymph node. COMPARISON: Ultrasound soft tissue head and neck 03/17/2021. TECHNIQUE: Following explaining ultrasound-guided right neck submandibular space lymph node biopsy procedure, benefits and risks, a written consent was obtained. Patient was placed supine on an ultrasound stretcher and preliminary ultrasound imaging was obtained. An optimal site was selected along the right posterior neck in the submandibular space and marked. The marked site was cleaned and draped in the usual sterile manner. 1% lidocaine was injected at the puncture site. Through a small skin incision, a 25-gauge needle attached to a syringe was advanced under sterile ultrasound guidance into the right abnormal moderate-sized lymph node and 3-pass fine-needle biopsy aspiration was performed. On immediate pathology read revealing adequate tissue, the needle was completely withdrawn, hemostasis was achieved at the puncture site and a simple Band-Aid applied postprocedure. Patient tolerated the procedure extremely well. FINDINGS: On limited ultrasound imaging of the right neck, there is a moderate-sized lymph node in the right submandibular space measuring 1.4 x 1.9 x 1.1 cm. There is increased flow in the center of the lesion on color ultrasound imaging. Percutaneous ultrasound-guided fine needle biopsy aspiration performed of right submandibular space lymph node. Immediate results from pathology revealed adequate tissue, likely from parotid origin. US/US biopsy lymph node IMPRESSION: Successful ultrasound-guided 3-past fine-needle biopsy aspiration right neck lymph node. Awaiting final pathology results.
[2021-06-06] MEDS: Lidocaine HCl 1 % MPF 5 ML VIAL SUBCUT (10:04)
== END 2021-06-06 08:34 | disposition home or self-care (01) ==
LOC: HO.US 08:33
PROVIDERS: Radiology Diagnostic Radiology; PCP Internal Medicine; Visit Provider Otolaryngology
DX: R59.0 Localized enlarged lymph nodes (principal)
CPT/HCPCS: 36415; 38505; 76942; 88172; 88173; 88184; 88185; 88300; 88305

== ENCOUNTER 2021-12-05 08:44 | Outpatient (REF) | payer OTHER, SELFPAY ==
--- NOTE | ~2021-12-05 | MM_ITS ---
EXAMINATION: MM SCREENING DIGITAL BREAST TOMOSYNTHESIS, BILATERAL CLINICAL INFORMATION: Screening. Asymptomatic. The lifetime risk of breast cancer based on the Tyrer-Cuzick Model is 7%. COMPARISON: Mammography: 09/29/2020, 09/24/2019, 08/19/2018 02/14/2018, 08/07/2017 TECHNIQUE: Digital breast tomosynthesis is performed in both the craniocaudal and mediolateral oblique views along with computer-aided detection (CAD). Synthesized 2D images are generated from the tomosynthesis. FINDINGS: The breasts are heterogeneously dense, which may obscure small masses (ACR BI-RADS breast composition Category c). There are no significant masses, abnormal calcifications, or other abnormalities. Parenchymal pattern is similar to prior studies. There is no developing density or architectural abnormality. The axilla and skin contours are unremarkable. No significant changes. MM/MM tomosynthesis screening BI IMPRESSION: No mammographic evidence of malignancy. ASSESSMENT: BI-RADS 1: Negative RECOMMENDATION: Routine annual mammography screening. This patient's information was entered into a reminder system with a target due date for their next mammogram.
== END 2021-12-05 08:45 | disposition home or self-care (01) ==
LOC: HO.MAMMO 08:44
PROVIDERS: PCP Internal Medicine; Visit Provider Internal Medicine
DX: Z12.31 Encounter for screening mammogram for malignant neoplasm of breast (principal)
CPT/HCPCS: 77063; 77067

== ENCOUNTER 2021-12-12 09:46 | Outpatient (REF) | payer OTHER, SELFPAY ==
[2021-12-12 10:22] LABS: Basophils Percent Auto 0.6 % (0-2); Eosinophils Absolute Auto 0.3 X10*3/uL (0.0-0.4); Hematocrit 39.7 % (37.0-47.0); Hemoglobin 12.9 g/dl (12.0-16.0); Imm Gran Abs Auto 0.02 X10*3/uL (0.00-0.03); Imm Gran Pct Auto 0.3 % (0.0-0.4); Lymphocytes Absolute Auto 1.9 X10*3/uL (1.2-4.9); Lymphocytes Percent Auto 29.6 % (20-40); MANUAL DIFF FLAG NO; Mean Corpuscular HGB Conc 32.5 g/dl (31.0-35.0); Mean Corpuscular Hemoglobin 30.9 pg (27.0-33.0); Mean Platelet Volume 10.6 fL (9.4-12.3); Monocytes Absolute Auto 0.3 X10*3/uL (0.1-1.2); Monocytes Percent Auto 4.1 % (2-11); Neutrophils Percent Auto 60.4 % (45-73); Platelet Count 202 X10*3/uL (160-400); Red Blood Count 4.18 X10*6/uL (4.20-5.50); Red Cell Distribution Width 12.1 % (11.0-16.0); White Blood Count 6.6 X10*3/uL (4.8-10.8)
[2021-12-12 11:06] LABS: Alanine Aminotransferase 15 U/L (0-31); Albumin Level 4.4 g/dL (3.5-5.0); Alkaline Phosphatase 115 U/L (39-117); Anion Gap 10 (12-20); Aspartate Amino Transferase 17 U/L (5-31); Bilirubin Total 0.3 mg/dL (0.0-1.0); Blood Urea Nitrogen 15 mg/dL (9-16); Calcium 10.2 mg/dL (8.4-10.2); Carbon Dioxide 30 mmol/L (22-29); Chloride 107 mmol/L (96-108); Cholesterol 272 mg/dL; Estimated Glomerular Filt Rate > 60; Glucose Fasting 92 mg/dL (60-99); HDL Cholesterol 45 mg/dL; LDL Cholesterol Calculated 195 mg/dl; Potassium 4.5 mmol/L (3.3-5.1); Sodium 142 mmol/L (135-145); Total Protein 7.2 g/dL (6.5-8.0); Triglycerides 164 mg/dL
[2021-12-12 11:14] LABS: Thyroid Stimulating Hormone 1.22 uIU/mL (0.32-4.0)
[2021-12-15 05:51] LABS: HPV mRNA E6/E7 rflx Not Detected (Not Detected)
== END 2021-12-12 09:47 | disposition home or self-care (01) ==
LOC: HO.10HDL 09:46
PROVIDERS: Obstetrics & Gynecology; Visit Provider Internal Medicine
DX: E78.00 Pure hypercholesterolemia, unspecified (principal); M89.49 Other hypertrophic osteoarthropathy, multiple sites; Z13.220 Encounter for screening for lipoid disorders; Z11.51 Encounter for screening for human papillomavirus (HPV); Z13.29 Encounter for screening for other suspected endocrine disorder
CPT/HCPCS: 36415; 80053; 80061; 84443; 85025; 87624; 88142

== ENCOUNTER 2022-08-15 08:19 | Outpatient (REF) | payer OTHER, SELFPAY ==
[2022-08-15 10:49] LABS: MANUAL DIFF FLAG NO
[2022-08-15 10:54] LABS: Basophils Percent Auto 0.5 % (0-2); Eosinophils Absolute Auto 0.3 X10*3/uL (0.0-0.4); Eosinophils Percent Auto 4.5 % (0-4); Hematocrit 38.4 % (37.0-47.0); Hemoglobin 12.6 g/dl (12.0-16.0); Imm Gran Abs Auto 0.01 X10*3/uL (0.00-0.03); Imm Gran Pct Auto 0.2 % (0.0-0.4); Lymphocytes Percent Auto 31.4 % (20-40); Mean Corpuscular HGB Conc 32.8 g/dl (31.0-35.0); Mean Corpuscular Hemoglobin 30.4 pg (27.0-33.0); Mean Corpuscular Volume 92.8 fL (80.0-98.0); Mean Platelet Volume 10.7 fL (9.4-12.3); Monocytes Absolute Auto 0.3 X10*3/uL (0.1-1.2); Monocytes Percent Auto 4.2 % (2-11); Neutrophils Absolute Auto 3.7 x10*3/uL (2.0-8.3); Neutrophils Percent Auto 59.2 % (45-73); Platelet Count 206 X10*3/uL (160-400); Red Blood Count 4.14 X10*6/uL (4.20-5.50); Red Cell Distribution Width 12.3 % (11.0-16.0); White Blood Count 6.2 X10*3/uL (4.8-10.8)
[2022-08-15 11:10] LABS: Alanine Aminotransferase 14 U/L (0-31); Albumin Level 4.3 g/dL (3.5-5.0); Alkaline Phosphatase 122 U/L (39-117); Anion Gap 14 (12-20); Aspartate Amino Transferase 19 U/L (5-31); Bilirubin Total 0.5 mg/dL (0.0-1.0); Blood Urea Nitrogen 16 mg/dL (9-16); Calcium 9.4 mg/dL (8.4-10.2); Carbon Dioxide 27 mmol/L (22-29); Chloride 104 mmol/L (96-108); Cholesterol 265 mg/dL; Estimated Glomerular Filt Rate > 60; Glucose Fasting 95 mg/dL (60-99); HDL Cholesterol 50 mg/dL; LDL Cholesterol Calculated 183 mg/dl; Potassium 4.1 mmol/L (3.3-5.1); Sodium 141 mmol/L (135-145); Total Protein 6.8 g/dL (6.5-8.0); Triglycerides 160 mg/dL
[2022-08-15 11:24] LABS: Free T4 (Free Thyroxine) 1.05 ng/dL (0.71-1.85); Thyroid Stimulating Hormone 1.22 uIU/mL (0.32-4.0); Vitamin D 25-OH Total 28.8 ng/mL (>30)
[2022-08-17 02:42] LABS: Lyme Abs Screen <0.90 index
== END 2022-08-15 08:20 | disposition home or self-care (01) ==
LOC: HO.10HDL 08:19
PROVIDERS: Visit Provider Internal Medicine
DX: E78.00 Pure hypercholesterolemia, unspecified (principal); M89.49 Other hypertrophic osteoarthropathy, multiple sites; E55.9 Vitamin D deficiency, unspecified; R59.0 Localized enlarged lymph nodes; M25.50 Pain in unspecified joint
CPT/HCPCS: 36415; 80053; 80061; 82306; 84439; 84443; 85025; 86617; 86618

== ENCOUNTER 2022-09-20 10:37 | Outpatient (REF) | payer OTHER, MEDICARE, SELFPAY ==
[2022-09-20 14:00] LABS: Blood Urea Nitrogen 12 mg/dL (9-16); Estimated Glomerular Filt Rate > 60
== END 2022-09-20 10:38 | disposition home or self-care (01) ==
LOC: HO.10HDL 10:37
PROVIDERS: Visit Provider Internal Medicine
DX: Z01.812 Encounter for preprocedural laboratory examination (principal); R00.2 Palpitations
CPT/HCPCS: 36415; 82565; 84520

== ENCOUNTER 2022-09-25 08:53 | Outpatient (REF) | payer OTHER, SELFPAY ==
--- NOTE | ~2022-09-25 | CT_ITS ---
EXAMINATION: CT SOFT TISSUE NECK WITH CONTRAST CLINICAL INFORMATION: Lymphadenopathy on the right side. COMPARISON: Neck ultrasound 03/17/2021. TECHNIQUE: Following the administration of 60 mL of Omnipaque 300 intravenous contrast, helical imaging was performed in the axial plane with generation of coronal and sagittal reformatted images. This CT examination was performed using dose optimization techniques as appropriate, variously including the following: *Automated exposure control *Adjustment of mA and/or kV according to patient size (this includes techniques or standardized protocols for targeted exams where dose is matched to indication/reason for exam; i.e. extremities or head) *Use of iterative reconstruction technique DLP: 321 mGy-cm FINDINGS: There is a 1.7 x 1.4 x 1.5 cm heterogeneous attenuation nodule which exophytic from the parotid tail. The lesion demonstrates heterogeneous hyperdensity along its anterior inferior margin. The right parotid gland is otherwise unremarkable. Left-sided parotid gland is also unremarkable. No submandibular abnormality is seen. No enlarged cervical lymph nodes are seen. The pharyngeal and laryngeal contours appear normal. The thyroid gland appears normal. No enlarged upper mediastinal lymph nodes are seen. There is no consolidation within the neck. There is no acute intracranial abnormality. Advanced degenerative changes are seen at the C5-C6 level with moderate spinal canal stenosis and high-grade neural foraminal stenosis. CT/CT soft tissue neck w IV con IMPRESSION: 1. Heterogeneous attenuation nodule exophytic from the right parotid tail measuring up to 1.7 cm. The salivary glands are otherwise unremarkable. No enlarged cervical lymph nodes are seen. 2. Advanced degenerative changes at the C5-C6 level with moderate spinal canal stenosis and high-grade neural foraminal stenosis.
[2022-09-25] MEDS: iohexoL 350 MG/ML 100 ML INFUS..BTL IV (10:01)
== END 2022-09-25 08:54 | disposition home or self-care (01) ==
LOC: HO.CT 08:53
PROVIDERS: PCP Internal Medicine; Visit Provider Internal Medicine
DX: R59.1 Generalized enlarged lymph nodes (principal)
CPT/HCPCS: 70491; Q9967

== ENCOUNTER 2022-12-07 08:46 | Outpatient (REF) | payer OTHER, MEDICARE, SELFPAY ==
--- NOTE | ~2022-12-07 | MM_ITS ---
EXAMINATION: MM SCREENING DIGITAL BREAST TOMOSYNTHESIS, BILATERAL CLINICAL INFORMATION: Screening. Asymptomatic. The lifetime risk of breast cancer based on the Tyrer-Cuzick Model is 9.3%. COMPARISON: Mammography: December 05, 2021 and studies dating back to June 16, 2016 TECHNIQUE: Digital breast tomosynthesis is performed in both the craniocaudal and mediolateral oblique views along with computer-aided detection (CAD). Synthesized 2D images are generated from the tomosynthesis. FINDINGS: The breasts are heterogeneously dense, which may obscure small masses (ACR BI-RADS breast composition Category c). There are no significant masses, abnormal calcifications, or other abnormalities. MM/MM tomosynthesis screening BI IMPRESSION: No significant changes ASSESSMENT: BI-RADS 1: Negative RECOMMENDATION: Routine annual mammography screening. This patient's information was entered into a reminder system with a target due date for their next mammogram.
== END 2022-12-07 08:47 | disposition home or self-care (01) ==
LOC: HO.MAMMO 08:46
PROVIDERS: Visit Provider Internal Medicine
DX: Z12.31 Encounter for screening mammogram for malignant neoplasm of breast (principal)
CPT/HCPCS: 77063; 77067

== ENCOUNTER 2022-12-12 10:39 | Day surgery (SDC) | payer OTHER, SELFPAY ==
--- NOTE | 2022-12-11 12:55 | HO.ANESPROP2 ---
Documented by User: Sloane Soto NP 12/11/22 12:57 HPI - Anesthesia Eval Consult details Narrative: 67yo F for Colonoscopy PMFSH Active Problems Active Problems: All Active Problems (Updated 12/11/22 @ 12:23 by Ivy Haynes RN) Left hip pain (Acute) Right hip pain (Acute) Mass of right hip region (Acute) Trochanteric bursitis of right hip (Acute) Soft tissue mass (Acute) Past Medical History Medical History (Updated 12/11/22 @ 12:23 by Ivy Haynes RN) Asthma GERD (gastroesophageal reflux disease) History of COVID-19 History of kidney stones Hypercholesteremia Lumbar disc disease Migraine Positive hepatitis C antibody test Restless leg syndrome Surgical History Surgical History History of left knee replacement Hx of colonoscopy Hx of hemorrhoidectomy Social History Social History Are you a primary career development director to a significant other at home: No Do you presently have visiting nurse or other home services: No Patient Tobacco Use Status: Former Tobacco user Second Hand Smoke Exposure: No Are you DNR?: No Advance Directives: Yes Advance Directives on File: Yes Advance Directives Date on File: 08/27/20 Recently lost weight without trying: No Meds Allergies Allergy/AdvReac Type Severity Reaction Status Date / Time diphenhydramine Allergy Agitated Verified 01/07/21 14:01 [From Benadryl] levofloxacin Allergy Unknown Verified 12/11/22 12:24 Home Medications Medication Instructions Recorded Confirmed Last Taken Type albuterol sulfate 90 mcg/actuation 1 puff inhalation Q4-6H PRN 12/03/20 12/06/20 Unknown History aerosol inhaler (Ventolin HFA) Wheezing qouhcholdd-blsmfgixwbrbh-nsxiqlqk 1 tab PO Q6H PRN headache 12/03/20 12/06/20 Unknown History 50 mg-325 mg-40 mg tablet rizatriptan 10 mg tablet 1 tab PO DAILY headache 12/03/20 12/06/20 Unknown History ropinirole 0.25 mg tablet 1 - 2 tab PO BEDTIME 12/03/20 12/06/20 Unknown History omeprazole 20 mg capsule,delayed 20 mg PO DAILY 12/06/20 12/06/20 Unknown History release ondansetron HCl 8 mg tablet 1 tab PO Q8H PRN nausea/vomiting 12/11/22 12/11/22 Unknown History Exam Exam Date and Time: December 11, 2022 1255 Pertinent Lab Results Pertinent Lab Results: Laboratory Tests 08/15/22 08/15/22 09/20/22 08:25 08:25 10:50 WBC 6.2 Hgb 12.6 Hct 38.4 Plt Count 206 Sodium 141 Potassium 4.1 Chloride 104 Carbon Dioxide 27 BUN 12 Creatinine 0.70 Assessment and Plan Assessment Anesthesia Assessment: Chart Reviewed Documented by User: Simón Abdi MD 12/12/22 12:33 [facility] Past Medical History Medical History (Updated 12/11/22 @ 12:23 by Ivy Haynes RN) Asthma GERD (gastroesophageal reflux disease) History of COVID-19 History of kidney stones Hypercholesteremia Lumbar disc disease Migraine Positive hepatitis C antibody test Restless leg syndrome Family History Family history of problems with anesthesia: No Surgical History Surgical History History of left knee replacement Hx of colonoscopy Hx of hemorrhoidectomy History of Problems with Anesthesia: No Social History Social History Are you a primary career development director to a significant other at home: No Do you presently have visiting nurse or other home services: No Patient Tobacco Use Status: Former Tobacco user Second Hand Smoke Exposure: No Are you DNR?: No Advance Directives: Yes Advance Directives on File: Yes Advance Directives Date on File: 08/27/20 Recently lost weight without trying: No Meds Allergies Allergy/AdvReac Type Severity Reaction Status Date / Time diphenhydramine Allergy Agitated Verified 01/07/21 14:01 [From Benadryl] levofloxacin Allergy Unknown Verified 12/11/22 12:24 Home Medications Medication Instructions Recorded Confirmed Last Taken Type albuterol sulfate 90 mcg/actuation 1 puff inhalation Q4-6H PRN 12/03/20 12/06/20 Unknown History aerosol inhaler (Ventolin HFA) Wheezing rhnjciaxrv-crfdrolmqnuqm-sqgnbqxu 1 tab PO Q6H PRN headache 12/03/20 12/06/20 Unknown History 50 mg-325 mg-40 mg tablet rizatriptan 10 mg tablet 1 tab PO DAILY headache 12/03/20 12/06/20 Unknown History ropinirole 0.25 mg tablet 1 - 2 tab PO BEDTIME 12/03/20 12/06/20 Unknown History omeprazole 20 mg capsule,delayed 20 mg PO DAILY 12/06/20 12/06/20 Unknown History release ondansetron HCl 8 mg tablet 1 tab PO Q8H PRN nausea/vomiting 12/11/22 12/11/22 Unknown History Exam Airway Mallampati Class: III TM Dist: >3cm Neck ROM: Full Loose/Missing/Broken Teeth: Yes Assessment and Plan Assessment Anesthesia Assessment: Anesthesia Plan Discussed Final Anesthetic Review Family History of Problems with Anesthesia: No History of Problems with Anesthesia: No NPO: Yes ASA Class: II Final Preanesthetic Review: No Changes in Pt Med Stat, Meds/Allgs Chart Reviewed, Consent Obtained/Reviewed and Anes Risks/Benef Reviewed Patient Risk: Low Procedure Risk: Low Anesthetic Plan Anesthetic Plan: MAC: Disposition: Standard PACU
[2022-12-12 07:38] VITALS: BMI 34.5
[2022-12-12 10:45] VITALS: BP 135/67; PULSE 59; RESP 18; TEMP 36.1; O2SAT 97
[2022-12-12] MEDS: Lactated Ringers 1,000 ML 100 ML IVCONT (11:09)
--- NOTE | 2022-12-12 11:59 | MHC.SHP ---
Pre-Procedural Eval Section A Date of Service: 12/12/22 The patient is an INPATIENT: No Changes since office visit: No Cold of Flu in the past 2 weeks, No New Medical Problems, No Changes in Medication and No Patient answered all questions The History & Physical has been completed within 30 days and I have reviewed it.: Yes Section B Chief Complaint: Hemorrhage of anus and rectum Allergies: Allergies Allergy/AdvReac Type Severity Reaction Status Date / Time diphenhydramine Allergy Agitated Verified 01/07/21 14:01 [From Benadryl] levofloxacin Allergy Unknown Verified 12/11/22 12:24 Plan I have reviewed the history and physical and performed a pertinent physical examination on my patient. No changes have occurred unless specified. Time Spent With Patient Time: Total time managing care of this patient today ____ minutes.
[2022-12-12 12:40] VITALS: BP 125/62; PULSE 52; RESP 18; TEMP 36.6; O2SAT 95
--- NOTE | 2022-12-12 12:40 | PM.OP ---
Brief Operative Note Date of Service: 12/12/22 Pre-op diagnosis: rectal bleeding Post-op diagnosis: same Procedure: colonoscopy Surgeon: Oswald Younger Anesthesia: MAC Was an Forging Press Setter Up used for this Procedure?: No Estimated blood loss (mL): 2 Pathology: other Condition: stable Disposition: PACU
[2022-12-12 12:55] VITALS: BP 138/83; PULSE 54; RESP 18; O2SAT 98
[2022-12-12 13:10] VITALS: BP 142/88; PULSE 47; RESP 16; TEMP 36.1; O2SAT 99
--- NOTE | 2022-12-12 23:10 | OP_ITS ---
SURGEON: Oswald Younger MD INDICATIONS: Rectal bleeding and abnormal CT scan of the colon. PREOPERATIVE DIAGNOSIS: POSTOPERATIVE DIAGNOSIS: PROCEDURE PERFORMED: Colonoscopy to the terminal ileum with biopsy. ESTIMATED BLOOD LOSS: COMPLICATIONS: ANESTHESIA: Monitored anesthesia care. ASSISTANTS: SPECIMENS: DESCRIPTION OF PROCEDURE: A history and physical performed. The procedure was performed on 12/12/2022. The risks and benefits of the procedure were explained to the patient. Informed consent was obtained. The patient was placed in the left lateral decubitus position. A digital rectal exam was performed and was found to be normal. The Olympus pediatric video colonoscope was introduced into the rectum and advanced to the cecum without difficulty. The cecum was identified by translumination, palpation, and identification of ileocecal valve. Examination was performed. The scope was removed. She tolerated the procedure well, and returned to recovery area in stable condition. FINDINGS: The terminal ileum was normal. This was biopsied. The visualized colonic mucosa was normal. There is no evidence of active colitis. The mucosa appeared within normal limits. A single polyp measuring less than 5 mm was identified at 35 cm was removed with biopsy forceps. Random biopsies were obtained from the right colon and rectosigmoid to rule out microscopic colitis. Retroflexed examination showed small internal hemorrhoids. IMPRESSION: 1. Colon polyp. 2. Otherwise normal colonoscopy. RECOMMENDATION: Follow up the biopsy results. MD ORAL Wheat/ERIN / [id number]
== END 2022-12-12 14:10 | disposition home or self-care (01) ==
PROVIDERS: PCP Internal Medicine; Visit Provider Internal Medicine Gastroenterology
PROC: 0DJD8ZZ Inspection of Lower Intestinal Tract, Via Natural or Artificial Opening Endoscopic (ICD-10-PCS; CPT 45378; principal; 2022-12-12 11:50)
DX: K62.5 Hemorrhage of anus and rectum (principal); R93.3 Abnormal findings on diagnostic imaging of other parts of digestive tract; K63.5 Polyp of colon; K64.8 Other hemorrhoids; E78.00 Pure hypercholesterolemia, unspecified; B19.20 Unspecified viral hepatitis C without hepatic coma; J45.909 Unspecified asthma, uncomplicated; K21.9 Gastro-esophageal reflux disease without esophagitis; Z79.899 Other long term (current) drug therapy; Z88.1 Allergy status to other antibiotic agents; Z87.891 Personal history of nicotine dependence
CPT/HCPCS: 45380; 88305; J3010

== ENCOUNTER 2023-06-04 10:11 | Outpatient (REF) | payer OTHER, SELFPAY ==
--- NOTE | ~2023-06-04 | US_ITS ---
EXAMINATION: US EXTRACRANIAL CAROTID DUPLEX, BILATERAL CLINICAL INFORMATION: Dizziness and giddiness COMPARISON: None available. TECHNIQUE: Real-time ultrasound and Doppler techniques (integrating B-mode 2-D vascular images, Doppler spectral analysis and color-flow Doppler imaging) were utilized to interrogate the extracranial carotid arteries, the vertebral arteries and proximal subclavian arteries bilaterally. The degree of stenosis is determined by criteria similar to NASCET. FINDINGS: Right Side: 1. There is no atherosclerotic plaque seen in the bifurcation/proximal ICA region. 2. The common carotid artery PSV proximally is 97.7 cm/s and distally 68.9 cm/s. 3. The proximal internal carotid artery velocities are 82.3 cm/s systolic and 30.2 cm/s diastolic. 4. The proximal external carotid artery PSV is 90 cm/s. 5. The vertebral artery shows antegrade flow. 6. The subclavian artery waveforms are normal. Left Side: 1. There is no atherosclerotic plaque seen in the bifurcation/proximal ICA region. 2. The common carotid artery PSV proximally is 75.7 cm/s and distally 63.2 cm/s. 3. The proximal internal carotid artery velocities are 77.4 cm/s systolic and 30.2 cm/s diastolic. 4. The proximal external carotid artery PSV is 77.2 cm/s. 5. The vertebral artery shows antegrade flow. 6. The subclavian artery waveforms are normal. US/US carotid duplex BI IMPRESSION: 1. RIGHT: Normal right internal carotid artery without atherosclerotic plaque or hemodynamically significant stenosis. 2. LEFT: Normal left internal carotid artery without atherosclerotic plaque or hemodynamically significant stenosis.
== END 2023-06-04 10:12 | disposition home or self-care (01) ==
LOC: HO.US 10:11
PROVIDERS: PCP Internal Medicine; Visit Provider Internal Medicine
DX: R42 Dizziness and giddiness (principal)
CPT/HCPCS: 93880

== ENCOUNTER 2023-09-11 09:37 | Outpatient (REF) | payer OTHER, SELFPAY ==
[2023-09-11 10:03] LABS: MANUAL DIFF FLAG NO
[2023-09-11 10:39] LABS: Basophils Percent Auto 0.6 % (0-2); Eosinophils Absolute Auto 0.4 X10*3/uL (0.0-0.4); Eosinophils Percent Auto 5.4 % (0-4); Hematocrit 41.2 % (37.0-47.0); Hemoglobin 13.5 g/dl (12.0-16.0); Imm Gran Abs Auto 0.01 X10*3/uL (0.00-0.03); Imm Gran Pct Auto 0.2 % (0.0-0.4); Lymphocytes Absolute Auto 2.2 X10*3/uL (1.2-4.9); Lymphocytes Percent Auto 33.5 % (20-40); Mean Corpuscular HGB Conc 32.8 g/dl (31.0-35.0); Mean Corpuscular Hemoglobin 30.3 pg (27.0-33.0); Mean Corpuscular Volume 92.6 fL (80.0-98.0); Mean Platelet Volume 10.1 fL (9.4-12.3); Monocytes Absolute Auto 0.3 X10*3/uL (0.1-1.2); Monocytes Percent Auto 4.8 % (2-11); Neutrophils Absolute Auto 3.7 x10*3/uL (2.0-8.3); Neutrophils Percent Auto 55.5 % (45-73); Platelet Count 209 X10*3/uL (160-400); Red Blood Count 4.45 X10*6/uL (4.20-5.50); Red Cell Distribution Width 12.5 % (11.0-16.0); White Blood Count 6.6 X10*3/uL (4.8-10.8)
[2023-09-11 10:52] LABS: Estimated Average Glucose 103 mg/dL; Hemoglobin A1c % 5.2 % (<6.0)
[2023-09-11 11:22] LABS: Alanine Aminotransferase 14 U/L (0-31); Albumin Level 4.6 g/dL (3.5-5.0); Alkaline Phosphatase 124 U/L (39-117); Anion Gap 13 (12-20); Aspartate Amino Transferase 17 U/L (5-31); Bilirubin Total 0.6 mg/dL (0.0-1.0); Blood Urea Nitrogen 17 mg/dL (9-16); Calcium 10.4 mg/dL (8.4-10.2); Carbon Dioxide 27 mmol/L (22-29); Chloride 106 mmol/L (96-108); Cholesterol 319 mg/dL (<200); Estimated Glomerular Filt Rate > 60; Glucose Random 97 mg/dL (60-115); HDL Cholesterol 51 mg/dL (>40); LDL Cholesterol Calculated 235 mg/dL (<100); Potassium 4.1 mmol/L (3.3-5.1); Sodium 142 mmol/L (135-145); Total Protein 7.6 g/dL (6.5-8.0); Triglycerides 169 mg/dL (<150)
[2023-09-11 11:30] LABS: Thyroid Stimulating Hormone 0.86 uIU/mL (0.32-4.0); Vitamin D 25-OH Total 47.3 ng/mL (>30)
== END 2023-09-11 09:38 | disposition home or self-care (01) ==
LOC: HO.LAB 09:37
PROVIDERS: PCP Internal Medicine; Visit Provider Internal Medicine
DX: R73.01 Impaired fasting glucose (principal); E78.00 Pure hypercholesterolemia, unspecified; E55.9 Vitamin D deficiency, unspecified
CPT/HCPCS: 36415; 80053; 80061; 82306; 83036; 84443; 85025

== ENCOUNTER 2023-10-31 14:15 | Outpatient (REF) | payer OTHER, SELFPAY | END 2023-10-31 14:16 | disposition home or self-care (01) | LOC: HO.LNP 14:15 | PROVIDERS: Visit Provider Obstetrics & Gynecology | DX: Z01.419 Encounter for gynecological examination (general) (routine) without abnormal findings (principal) | CPT/HCPCS: 88142 ==

== ENCOUNTER 2023-11-30 08:22 | Outpatient (REF) | payer OTHER, SELFPAY | END 2023-11-30 08:23 | disposition home or self-care (01) | LOC: HO.SH 08:22 | PROVIDERS: Visit Provider Internal Medicine | DX: Z01.118 Encounter for examination of ears and hearing with other abnormal findings (principal); H90.3 Sensorineural hearing loss, bilateral; H93.13 Tinnitus, bilateral | CPT/HCPCS: 92557; 92700 ==

== ENCOUNTER 2023-12-05 13:42 | Outpatient (AMB) | payer OTHER, SELFPAY ==
--- NOTE | 2023-12-05 13:50 | MHC.OFFVIS ---
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/hypercholesterol Intake Note: New patient dx hypercholesterol feeling good Flight Test Data Acquisition Technician Required: No Allergies erythromycin base [From Staticin] Allergy (Intermediate, Verified 12/05/23 14:02) Joint Pain ethyl alcohol [From Staticin] Allergy (Intermediate, Verified 12/05/23 14:02) Joint Pain Albhgii-DHE-YtW Reductase Inhibitor Allergy (Intermediate, Verified 12/05/23 14:02) Joint Pain diphenhydramine [From Benadryl] Allergy (Verified 01/07/21 14:01) Agitated levofloxacin Allergy (Verified 12/11/22 12:24) Unknown Medication List - Last Reconciled 12/05/23 by Fernando Rivero MD albuterol sulfate 90 mcg/actuation (Ventolin HFA) 1 puff inhalation Q4-6H PRN ascorbate calcium (vitamin C) 1 g PO Q6H qawnqorhaz-inqgcdtivetft-fccf 50-325-40 mg 1 tab PO Q6H PRN ibuprofen (IBU) 400 mg PO Q8H omeprazole 20 mg PO DAILY ondansetron HCl 1 tab PO Q8H PRN rizatriptan 10 mg PO DAILY ropinirole 1 - 2 tabs PO BEDTIME HPI HPI Comments History of Present Illness Details Thank you for referring Helene in cardiology consultation today for management of palpitations as well as hyperlipidemia. I would seen her many years ago when she had presented emergency room with palpitation was diagnosed with paroxysmal atrial tachycardia. She was then started metoprolol therapy and had done well with the therapy but over years tapered and discontinued therapy as she had no recurrent episodes. She does have history of sinus bradycardia. All the last 2 months she is started having recurrent symptoms of palpitation which she feels heart beating rapidly out of the blue and then subsided within few seconds. She is highly symptomatic with it. With some of the more prolonged episodes she does feel throat tightness after the episode has subsided. She is recorded some of the strips by her smart phone based EKG sensor and these episodes as suggestive again paroxysmal atrial tachycardia. No evidence of atrial fibrillation. She has not change her lifestyle significantly. She has no significant stress. She also had recent lipid panel which shows markedly elevated LDL at 235 mg/dL. She says she is tried multiple statins in the past including genetic statins and name brand statins and all of them have caused life-limiting joint and muscle pain. Symptoms have subsided after she is stopped her statin therapy. She denies any significant exertional chest pain or shortness of breath. No lightheadedness, syncope. No heart failure symptoms. [facility] [place] Medical History Positive hepatitis C antibody test History of COVID-19 Asthma Lumbar disc disease History of kidney stones GERD (gastroesophageal reflux disease) Migraine Restless leg syndrome Hypercholesteremia Surgical History Hx of hemorrhoidectomy Hx of colonoscopy History of left knee replacement Social History Are you a primary rn care transition to a significant other at home: No Do you presently have visiting nurse or other home services: No Patient Tobacco Use Status: Former Tobacco user Second Hand Smoke Exposure: No Advance Directives Date on File: 08/27/20 Review of Systems Const Denies chills, Denies daytime sleepiness, Denies fatigue, Denies fever(s), Denies frequent falls, Denies poor appetite, Denies snoring, Denies stops breathing during sleep, Denies weakness, Denies weight gain and Denies weight loss Eyes Denies loss of vision ENT Denies dizziness and Denies hearing loss Card Denies chest pain, Denies claudication, Denies leg edema, Denies lightheadedness, Denies palpitations, Denies dyspnea, Denies dyspnea on exertion and Denies orthopnea Resp Denies cough, Denies excessive phlegm production, Denies dyspnea, Denies dyspnea on exertion, Denies snoring and Denies wheezing GI Denies abdominal pain, Denies hematochezia, Denies change in bowel habits, Denies nausea and Denies vomiting Denies urinary frequency and Denies dysuria Musc Denies arthralgias, Denies muscle weakness, Denies numbness and Denies other (frequent falls) Skin/Breast Denies nail changes and Denies rash Neuro Denies Abnormal speech present, Denies dizziness, Denies frequent falls, Denies loss of vision, Denies memory loss, Denies numbness and Denies weakness Psych Denies depression and Denies memory loss Endo Denies fatigue and Denies palpitations Nathanael/Lymph Reports easy bruising and Reports other (anemia) Aller/Immun Denies wheezing Physical Exam Vital Signs: Last Vital Signs Pulse 58 12/05/23 13:51 BP 126/78 12/05/23 13:51 BMI result Body Mass Index 35.1 Const General: cooperative, comfortable, no acute distress, well developed, alert, awake and Physically active Nutritional Appearance: well nourished and obese Orientation/consciousness: patient oriented x3 Limitations: no limitations HEENT Head: Yes normocephalic and Yes atraumatic Neck Neck: Yes trachea midline, Yes supple and Yes no JVD Carotids: no bruits Resp Effort & Inspection: normal respiratory effort Auscultation: clear to auscultation bilaterally Cardio Jugular venous distension: no JVD Palpation: normal PMI Rate: bradycardic Rhythm: regular rhythm Heart sounds: S1 normal heart sound present, S2 normal heart sound present, no click, no gallops, no murmurs and no rubs Peripheral pulses: Peripheral pulses 2+ throughout GI Auscultation: normal bowel sounds Skin General skin exam: no rashes or lesions noted Neuro General: patient oriented x3 and no focal motor deficits Speech: No Abnormal speech present Extrem General: Yes no clubbing, cyanosis or edema Psych Appearance: grossly normal Office Procedures EKG Details: EKG shows sinus bradycardia with left anterior fascicular block at 58 beats per minute [id number], Complete Assessment & Plan Assessment & Plan (1) Paroxysmal atrial tachycardia: Code(s): I47.19 - Other supraventricular tachycardia Plan: Patient with intermittent episodes of palpitation which are highly symptomatic suggest a paroxysmal atrial tachycardia based on her EKGs strips on her device. She would done very well with low-dose metoprolol therapy in the past. Would suggest to restart low-dose Toprol-XL 25 mg daily. Recommend to avoid stimulants. Further treatment baseline the response. Advised to continue monitor her arrhythmias by EKG device. (2) Hyperlipidemia: Code(s): E78.5 - Hyperlipidemia, unspecified Plan: Marked hyperlipidemia, target for primary prevention. She is currently having symptoms of chest tightness which are concerning although happening after an arrhythmia. Would suggest a treadmill stress test to evaluate for myocardial ischemia. If this is negative suggestive she is interested in further pursuing workup with coronary calcium score. She wants to think about it. I also strongly suggest her to be started on lipid modification agent with PCSK9 inhibitor therapy. Mechanism of action of these agents were discussed in contrast to statin therapy. Likelihood of muscle discomfort is very low and this was discussed with her. She wants to think about it especially given that these are injectable therapy. Risks and benefits were discussed. She understands agrees. Will follow up in 6 weeks time, sooner p.r.n.. Thank you for allowing me to partake in the care Orders: Orders CA stress test Today E78.5 - Hyperlipidemia, unspecified, R07.89 - Other chest pain CT Coronary Calcium Score 4 Weeks E78.5 - Hyperlipidemia, unspecified Medications: New metoprolol succinate ER (Toprol XL) 25 mg PO DAILY 30 tabs 2RF E78.5 - Hyperlipidemia, unspecified Coding Level of Care Code New Pt Level 4 (26065) Diagnoses Paroxysmal atrial tachycardia I47.19 Hyperlipidemia E78.5 CPT Codes EKG - CPT: 58438-[id number], Complete ([id number])
[2023-12-05 13:51] VITALS: BP 126/78; PULSE 58; BMI 35.1
== END 2023-12-05 14:37 | disposition home or self-care (01) ==
PROVIDERS: PCP Internal Medicine; Visit Provider Internal Medicine Cardiovascular Disease
DX: I47.19 Other supraventricular tachycardia (principal); E78.5 Hyperlipidemia, unspecified
CPT/HCPCS: 93010; 99204

== ENCOUNTER → 2023-12-05 13:42 | Outpatient (BNVA) | payer OTHER, SELFPAY | PROVIDERS: PCP Internal Medicine; Visit Provider Internal Medicine Cardiovascular Disease | DX: I47.19 Other supraventricular tachycardia (principal); E78.5 Hyperlipidemia, unspecified; Z79.899 Other long term (current) drug therapy | CPT/HCPCS: 93005 ==

== ENCOUNTER 2023-12-13 09:24 | Outpatient (REF) | payer OTHER, SELFPAY ==
--- NOTE | ~2023-12-13 | MM_ITS ---
EXAMINATION: BONE DENSITOMETRY CLINICAL INDICATION: Encounter for screening for osteoporosis. Post menopausal. COMPARISON: This is the patient's baseline examination. TECHNIQUE: Using a [employer] DXA System (software version: 13.1) manufactured by [employer], dual-energy x-ray absorptiometry was performed of the lumbar spine and left hip. The images are of good technical quality. Summary results are attached. FINDINGS: AP SPINE L1-L4: BMD 0.904 g/cm2, Z-score -1.4, T-score -2.3, osteopenia. LEFT FEMUR, NECK: BMD 0.864 g/cm2, Z-score -0.2, T-score -1.2, osteopenia. LEFT FEMUR, TOTAL: BMD 0.904 g/cm2, Z-score -0.1, T-score -0.8, normal. IDENTIFIED RISK FACTORS: Height loss. Menopause. HISTORY OF FRACTURE: None listed. MEDICATIONS: Calcium supplement and/or multivitamin. Vitamin D. MM/XR DEXA axial skeleton IMPRESSION: 1. DIAGNOSIS: Osteopenia based on the lowest T-score value of -2.3 in the lumbar spine applying World Health Organization criteria. 2. 10-YEAR FRACTURE RISK PREDICTION, FRAX: Major osteoporotic fracture (clinical spine, forearm, hip or shoulder) 8.2%. Hip fracture 0.8%. 3. Treatment Recommendations: NOF guidelines recommend consideration for treatment in postmenopausal women and men age 50 and older presenting with the following: -A hip or vertebral (clinical or morphometric) fracture. -T-score less than or equal to -2.5 at the femoral neck or spine after appropriate evaluation to exclude secondary causes. -Low bone mass at the hip or spine and a 10-year fracture probability by FRAX of greater than or equal to 3% for hip fracture or greater than or equal to 20% for major osteoporotic fracture based on the [place] adapted WHO algorithm. 4. Other Recommendations: All treatment decisions require clinical judgment and consideration of individual patient factors, including patient preferences, comorbidities, previous drug use, risk factors not captured in the FRAX model (e.g. frailty, falls, vitamin D deficiency, increased bone turnover, interval significant decline in bone density) and possible under or overestimation of fracture risk by FRAX. Additional medical evaluation for secondary cause of low bone mineral density may be appropriate. FUTURE SCAN RECOMMENDATION: People with diagnosed cases of osteoporosis or at high risk for fracture should have regular bone mineral density tests. For patients eligible for Medicare, routine testing is allowed once every 2 years. The testing frequency can be increased to one year for patients who have rapidly progressing disease, those who are receiving or discontinuing medical therapy to restore bone mass, or have additional risk factors.
== END 2023-12-13 09:25 | disposition home or self-care (01) ==
LOC: HO.MAMMO 09:24
PROVIDERS: PCP Internal Medicine; Visit Provider Internal Medicine
DX: Z12.31 Encounter for screening mammogram for malignant neoplasm of breast (principal); Z13.820 Encounter for screening for osteoporosis; Z78.0 Asymptomatic menopausal state
CPT/HCPCS: 77063; 77067; 77080

== ENCOUNTER → 2023-12-13 09:45 | Outpatient (BNV) | payer OTHER, SELFPAY | PROVIDERS: PCP Internal Medicine; Visit Provider Radiology Diagnostic Radiology | DX: Z12.31 Encounter for screening mammogram for malignant neoplasm of breast (principal) | CPT/HCPCS: 77063; 77067 ==

== ENCOUNTER → 2024-01-04 09:04 | Outpatient (BNV) | payer OTHER, SELFPAY | PROVIDERS: PCP Internal Medicine; Visit Provider Nurse Practitioner Family | DX: R06.02 Shortness of breath (principal); R94.31 Abnormal electrocardiogram [ECG] [EKG] | CPT/HCPCS: 93016; 93018 ==

== ENCOUNTER → 2024-01-04 09:13 | Outpatient (REF) | payer OTHER, SELFPAY ==
--- NOTE | 2024-01-04 09:04 | CA_ITS ---
Acquisition Time: 2024-01-04 09:26:40 Total Exercise Time: 00:06:00 Test Indications: Abnormal ECG Medications: ALBUTEROL OMEPRAZOLE Protocol: DENISE Max HR: 150 BPM 97% of Pred: 154 BPM Max BP: 150/090 mmHG Max Work Load: 7.0 METS Exercise stress test with exercise 6 min of Denise protocol, achieving 96% MPHR, with mild shortness of breath, no chest discomfort, with isolated PVCs that increase in stage 2, with normotensive response to exercise, with borderline ST changes that are Equivocal for ischemia.EKG tracings and report reviewed with Dr Rivero. Will order a stress echocardiogram for further evaluation. Referred By: Fernando Rivero Overread By: ELLE GREER
== END ==
LOC: HO.CARD 09:13
PROVIDERS: PCP Internal Medicine; Visit Provider Internal Medicine Cardiovascular Disease
DX: R07.89 Other chest pain (principal); E78.5 Hyperlipidemia, unspecified
CPT/HCPCS: 93017

== ENCOUNTER → 2024-01-15 10:50 | Outpatient (REF) | payer OTHER, SELFPAY ==
--- NOTE | 2024-01-15 10:54 | CA_ITS ---
Acquisition Time: 2024-01-15 10:45:54 Total Exercise Time: 00:06:40 Test Indications: ABN ETT Medications: ALBUTEROL FIORICET OMEPRAZOLE RIZATRIPTAN Protocol: DENISE Max HR: 148 BPM 96% of Pred: 154 BPM Max BP: 174/084 mmHG Max Work Load: 8.0 METS Exercise stress test exercise 6 min 40 sec of Denise protocol achieving 96% MPHR, with mild SOB, no chest discomfort, without arrhythmias seen through artifact, with normotensive respnse to exercise, with borderline EKGs. Artfiact made quiality of difficult to read. Echo images obtained by tech at rest and immediately post peak exercise.Equivocal findings. Definity contrast used. Test reviewed with Dr. Leo. Referred By: Kristy Steele Overread By: Stephani Luis
== END ==
LOC: HO.CARD 10:50
PROVIDERS: PCP Internal Medicine; Visit Provider Nurse Practitioner Family
DX: R06.02 Shortness of breath (principal); R94.39 Abnormal result of other cardiovascular function study
CPT/HCPCS: 93350; Q9957

== ENCOUNTER → 2024-01-15 10:54 | Outpatient (BNV) | payer OTHER, SELFPAY | PROVIDERS: PCP Internal Medicine; Visit Provider Nurse Practitioner | DX: R06.02 Shortness of breath (principal); R94.31 Abnormal electrocardiogram [ECG] [EKG] | CPT/HCPCS: 93016; 93018; 93350; 93352 ==

== ENCOUNTER 2024-01-24 08:42 | Outpatient (AMB) | payer OTHER, SELFPAY ==
[2024-01-24 08:44] VITALS: BP 122/78; PULSE 76; BMI 35.7
--- NOTE | 2024-01-24 08:44 | A.OFFVIS_ITS ---
Intake Vital Signs 01/24/24 08:44 Height 5 ft 3 in Weight 201 lb 11.567 oz BMI 35.7 BP 122/78 Blood Pressure Location Lt brachial Position Sitting Pulse 76 Intake Visit Reasons: f/up stress Intake Note: follow up after stress test Allergies erythromycin base [From Staticin] Allergy (Intermediate, Verified 12/05/23 14:02) Joint Pain ethyl alcohol [From Staticin] Allergy (Intermediate, Verified 12/05/23 14:02) Joint Pain Rqvotgh-FOL-HtD Reductase Inhibitor Allergy (Intermediate, Verified 12/05/23 14:02) Joint Pain diphenhydramine [From Benadryl] Allergy (Verified 01/07/21 14:01) Agitated levofloxacin Allergy (Verified 12/11/22 12:24) Unknown Medication List - Last Reconciled 01/24/24 by Fernando Rivero MD albuterol sulfate 90 mcg/actuation (Ventolin HFA) 1 puff inhalation Q4-6H PRN ascorbate calcium (vitamin C) 1 g PO Q6H itlrxivtvz-roxrplokgmxhf-kbwv 50-325-40 mg 1 tab PO Q6H PRN cholecalciferol (vitamin D3) 25 mcg PO DAILY ibuprofen (IBU) 400 mg PO Q8H metoprolol succinate ER (Toprol XL) 25 mg PO DAILY omeprazole 20 mg PO DAILY ondansetron HCl 1 tab PO Q8H PRN rizatriptan 10 mg PO DAILY ropinirole 1 - 2 tabs PO BEDTIME HPI HPI Comments History of Present Illness Details Helene comes for follow-up. Underwent a regular treadmill stress test which was positive by EKG criteria and therefore underwent a stress echocardiogram which was negative for ischemia. She did not have subsequent coronary calcium score. She is very hesitant to try PCSK9 inhibitor therapy. Her symptoms of palpitation improved on metoprolol therapy. She says she still gets occasional palpitation but they are much improved. Denies any lightheadedness, syncope. No other significant symptoms. [facility] Medical History (Updated 01/24/24 @ 09:06 by Fernando Rivero MD) False positive stress test Positive hepatitis C antibody test History of COVID-19 Asthma Lumbar disc disease History of kidney stones GERD (gastroesophageal reflux disease) Migraine Restless leg syndrome Hypercholesteremia Surgical History Hx of hemorrhoidectomy Hx of colonoscopy History of left knee replacement Social History Are you a primary healthcare administration internship to a significant other at home: No Do you presently have visiting nurse or other home services: No Patient Tobacco Use Status: Former Tobacco user Second Hand Smoke Exposure: No Advance Directives Date on File: 08/27/20 Review of Systems Const Denies chills, Denies fatigue, Denies fever(s), Denies frequent falls, Denies weakness, Denies weight gain and Denies weight loss ENT Denies dizziness Card Denies chest pain, Denies leg edema, Denies lightheadedness, Denies palpitations, Denies dyspnea, Denies dyspnea on exertion, Denies orthopnea and Denies other (loss of consciousness) Resp Denies cough, Denies dyspnea and Denies dyspnea on exertion GI Denies hematochezia and Denies change in stool character Musc Denies abnormal gait, Denies muscle weakness, Denies numbness, Denies radiating pain into limb and Denies tingling Neuro Denies Abnormal speech present, Denies abnormal gait, Denies dizziness, Denies frequent falls, Denies numbness, Denies tingling and Denies weakness Endo Denies fatigue and Denies palpitations Physical Exam Vital Signs: Last Vital Signs Pulse 76 01/24/24 08:44 BP 122/78 01/24/24 08:44 BMI result Body Mass Index 35.7 Const General: cooperative, comfortable, no acute distress, well developed, alert, awake and Physically active Nutritional Appearance: well nourished and obese Orientation/consciousness: patient oriented x3 Limitations: no limitations HEENT Head: Yes normocephalic and Yes atraumatic Neck Neck: Yes trachea midline, Yes supple and Yes no JVD Carotids: no bruits Resp Effort & Inspection: normal respiratory effort Auscultation: clear to auscultation bilaterally Cardio Jugular venous distension: no JVD Palpation: normal PMI Rate: bradycardic Rhythm: regular rhythm Heart sounds: S1 normal heart sound present, S2 normal heart sound present, no click, no gallops, no murmurs and no rubs Peripheral pulses: Peripheral pulses 2+ throughout GI Auscultation: normal bowel sounds Skin General skin exam: no rashes or lesions noted Neuro General: patient oriented x3 and no focal motor deficits Speech: No Abnormal speech present Extrem General: Yes no clubbing, cyanosis or edema Psych Appearance: grossly normal Assessment & Plan Assessment & Plan (1) Paroxysmal atrial tachycardia: Code(s): I47.19 - Other supraventricular tachycardia Plan: Paroxysmal atrial tachycardia which are much better controlled on low-dose metoprolol therapy she has not having any side effects. Advised to avoid stimulants. If she has worsening symptoms can switch her to calcium channel lupe such as Cardizem or verapamil and/or try antiarrhythmic drug therapy such as flecainide. This was discussed with her. However will continue with metoprolol therapy at this point in time. (2) Hyperlipidemia: Code(s): E78.5 - Hyperlipidemia, unspecified Plan: Marked hyperlipidemia with significantly elevated LDL. We discussed about management. She does not want to undergo coronary calcium score. However she is willing to try PCSK9 inhibitor therapy for 3 months. We discussed potential adverse events related to PCSK9 inhibitor therapy. Will start on Repatha 140 units subcutaneously every 2 weeks. Follow-up lipid panel in 3 months time. Importance of controlling hyperlipidemia was discussed with her. Will follow up in the clinic in 1 year's time, sooner p.r.n.. Thank you for allowing me to partake in her care Orders: Orders Lipid Panel 3 Months E78.5 - Hyperlipidemia, unspecified, I25.10 - Atherosclerotic heart disease of [place] coronary artery without angina pectoris Medications: New evolocumab (Repatha SureClick) 140 mg subcut Q2W 2 mL 5RF Coding Level of Care Code Est Pt Level 4 (55852) Diagnoses Paroxysmal atrial tachycardia I47.19 Hyperlipidemia E78.5
== END 2024-01-24 09:06 | disposition home or self-care (01) ==
PROVIDERS: PCP Internal Medicine; Visit Provider Internal Medicine Cardiovascular Disease
DX: I47.19 Other supraventricular tachycardia (principal); E78.5 Hyperlipidemia, unspecified
CPT/HCPCS: 99214

== ENCOUNTER → 2024-01-24 08:42 | Outpatient (BNVA) | payer OTHER, SELFPAY | PROVIDERS: PCP Internal Medicine; Visit Provider Internal Medicine Cardiovascular Disease ==

== ENCOUNTER 2024-09-19 10:12 | Inpatient (IN) | payer OTHER, SELFPAY ==
[2024-09-19] VITALS (9 sets, daily range): BP systolic 130–175; BP diastolic 56–96; PULSE 55–77; RESP 12–19; TEMP 36.6–36.9; O2SAT 95–99; BMI 38.1
--- NOTE | 2024-09-19 | ECG_ITS ---
Test Reason : ches pain Blood Pressure : / mmHG Vent. Rate : 056 BPM Atrial Rate : 056 BPM P-R Int : 178 ms QRS Dur : 088 ms QT Int : 444 ms P-R-T Axes : 030 -35 -08 degrees QTc Int : 428 ms Sinus bradycardia Left axis deviation Nonspecific ST abnormality Abnormal ECG When compared with ECG of 03-DEC-2020 08:48, No significant changes seen Referred By: Generic ED Physician Electronically Signed By:RENÉ FARIA
--- NOTE | ~2024-09-19 | XR_ITS ---
EXAMINATION: XR CHEST CLINICAL INFORMATION: Chest pain, rule out pneumonia or pneumothorax. COMPARISON: Chest x-ray 05/28/2017. CT chest angiography PE protocol 12/03/2020. TECHNIQUE: AP portable view of the chest was obtained. FINDINGS: Patient is mildly rotated. The cardiac, hilar, and mediastinal contours are normal. Mildly tortuous aorta. Mildly prominent hilar pulmonary arteries are likely secondary to AP technique and magnification. The lungs are clear bilaterally. No effusions, consolidation, or pneumothorax. No suspicious osseous abnormalities. Degenerative changes of the spine and bilateral shoulder joints. XR/XR chest 1V IMPRESSION: No active disease. No interval change. Electronically signed by: Kulwinder Luis MD 09/19/2024 03:08 PM EDT
--- NOTE | 2024-09-19 10:27 | ED.CHESTPAIN ---
HPI - Chest Pain General Chief Complaint: Chest Pain Stated Complaint: CP Time Seen by Provider: 09/19/24 10:27 Source: patient Mode of arrival: ambulatory Limitations: no limitations History of Present Illness ED Provider: Dr. Abdulaziz Toure HPI narrative: 69-year-old female with a history of paroxysmal atrial tachycardia, asthma, lumbar disc disease, migraines, restless legs syndrome, hyperlipidemia, GERD, mitral valve prolapse, left total knee replacement who presents emergency department for evaluation of palpitations and chest pain. The patient states she has been having palpitations which began this summer. Patient was seen by Dr. Rivero and on his office note from 01/24/2024 states Underwent a regular treadmill stress test which was positive by EKG criteria and therefore underwent a stress echocardiogram which was negative for ischemia . Note also states the patient's symptoms improved on metoprolol therapy. Patient states that over the last 2 nights she has been having palpitations which she describes as a racing heart sensation. She was also had chest pain. She points to her left anterior chest and states that feels like a poker is being driven 3 were chest to her back. She states the pain is 3 to 4/10 at its worse and last in the proximally 5-10 minutes at most. She had no associated diaphoresis, lightheadedness, nausea, shortness of breath or radiation of the pain. She states that this morning at 03:00 hours she again developed a rapid heart rate with a left anterior chest pain similar to her previous episodes. However the pain persisted in was present at the time my evaluation in the emergency department. She also states the pain radiates to her neck and left axilla which was new. She again denied diaphoresis, lightheadedness, nausea, shortness of breath associated with the pain. Patient states that she has been walking a 0.5 miles daily over the last 3 days to try to get some exercise and she has had no dyspnea on exertion, shortness of breath or chest pain associated with this activity. The patient was not had any recent surgical procedures, gone on any long trips or on hormone replacement therapy. Related Data Home Medications ?Medication ?Instructions ?Recorded ?Confirmed albuterol sulfate 90 mcg/actuation 1 puff inhalation Q4-6H PRN 12/03/20 01/24/24 aerosol inhaler (Ventolin HFA) Wheezing vhzmhwyzre-elhpnpyavaklz-tnuxkbzg 1 tab PO Q6H PRN headache 12/03/20 01/24/24 50 mg-325 mg-40 mg tablet ropinirole 0.25 mg tablet 1 - 2 tab PO BEDTIME 12/03/20 01/24/24 omeprazole 20 mg capsule,delayed 20 mg PO DAILY 12/06/20 01/24/24 release ondansetron HCl 8 mg tablet 1 tab PO Q8H PRN nausea/vomiting 12/11/22 01/24/24 ascorbate calcium (vitamin C) 500 1 g PO Q6H 12/05/23 01/24/24 mg tablet ibuprofen 400 mg tablet (IBU) 400 mg PO Q8H 12/05/23 01/24/24 rizatriptan 10 mg tablet 10 mg PO DAILY headache 12/05/23 01/24/24 cholecalciferol (vitamin D3) 25 25 mcg PO DAILY 01/24/24 01/24/24 mcg (1,000 unit) capsule Previous Rx's ?Medication ?Instructions ?Recorded evolocumab 140 mg/mL subcutaneous 140 mg subcut Q2W #2 mL 01/24/24 pen injector ([employer] OPSick) metoprolol succinate 25 mg 25 mg PO DAILY #90 tabs 03/04/24 tablet,extended release 24 hr Allergies Allergy/AdvReac Type Severity Reaction Status Date / Time Aercfsz-ALZ-TuD Reductase Allergy Intermediate Joint Pain Verified 09/19/24 10:22 Inhibitor diphenhydramine Allergy Agitated Verified 09/19/24 10:22 [From Benadryl] levofloxacin Allergy frozen Verified 09/19/24 10:22 shoulder Review of Systems Review of Systems: Yes all other systems are reviewed and are negative [facility] Past Medical History [facility] Narrative: Social history: The patient states that she did smoke for about 5 years when she was younger included age 23 but he was not a smoker now. She drinks alcohol rarely. Medical History (Updated 09/19/24 @ 13:51 by Abdulaziz Toure MD) False positive stress test Positive hepatitis C antibody test History of COVID-19 Asthma Lumbar disc disease History of kidney stones GERD (gastroesophageal reflux disease) Migraine Restless leg syndrome Hypercholesteremia Surgical History Hx of hemorrhoidectomy Hx of colonoscopy History of left knee replacement Social History Social History Are you a primary infant caregiver to a significant other at home: No Do you presently have visiting nurse or other home services: No Patient Tobacco Use Status: Former Tobacco user Smoked in Last 30 Days: No Second Hand Smoke Exposure: No Use of substances other than those prescribed or required for medical reasons: No Advance Directives: No Advance Directives Information Provided: Yes Advance Directives Date on File: 08/27/20 Do you have a plan to hurt others: No Plan Physical Exam Vital Signs: Vital Signs: Last Vital Signs Temp 98.3 F 09/19/24 10:46 Pulse 62 09/19/24 11:15 Resp 16 09/19/24 11:15 BP 130/77 09/19/24 11:15 Pulse Ox 97 09/19/24 11:15 O2 Del Method Room Air 09/19/24 11:15 BMI result Body Mass Index 38.1 Vital signs were normal Exam: General: Awake, alert in no distress Head: Normocephalic, atraumatic EENT: PERRL, Lids normal, sclera normal, conjunctiva normal, nose normal , ears normal, throat without erythema or exudates Neck: Supple, no adenopathy Lung: breath sounds symmetric, no wheezing, rales or rhonchi Chest: symmetric movement, nontender Heart: regular rate and rhythm, normal S1, S2 no murmurs or rubs Abdomen: soft, non-tender, nondistended, normal bowel sounds Back: no vertebral tenderness, no CVAT Extremities: no deformities, moves all extremities symmetrically Neuro: Awake, alert, oriented, normal speech, cranial nerves intact, moves all extremities symmetrically Psych: Pleasant, cooperative Medications Administered Generic Name Dose Route Start Last Admin Trade Name Freq PRN Reason Stop Dose Admin Nitroglycerin 0.4 mg 09/19/24 10:44 09/19/24 11:08 Nitroglycerin 0.4 Mg Tab.Subl SUBLINGUAL 0.4 mg [id number] PRN Administration Chest Pain Discontinued Medications Generic Name Dose Route Start Last Admin Trade Name Freq PRN Reason Stop Dose Admin Aspirin 324 mg 09/19/24 10:44 09/19/24 11:06 Aspirin 81 Mg Tab.Chew PO 09/19/24 10:45 324 mg ONCE ONE Administration Medical Decision Making Medical Decision Making [facility] Narrative: 69-year-old female with a history of paroxysmal atrial tachycardia, asthma, lumbar disc disease, migraines, restless legs syndrome, hyperlipidemia, GERD, mitral valve prolapse, left total knee replacement (8 years prior) who presents emergency department for evaluation of palpitations and chest pain x3 episodes, 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 She describes the chest pain is a poker being dripping through her anterior chest and into her back. First two episodes lasted a proximally 5-10 minutes. This morning's episode of tachycardia and chest pain occurred at 03:00 hours, tachycardia resolved and w but her chest pain was as present at the time my evaluation. This morning's episode also radiated to her neck and left axilla. She denied other associated symptoms such as lightheadedness, dizziness, diaphoresis, nausea. Vital signs did reveal an elevated blood pressure of 175/96 otherwise unremarkable. Physical examination was unremarkable. Differential diagnosis: ?Includes but is not limited to myocardial infarction, myocardial ischemia, new onset angina, arrhythmia, electrolyte abnormalities, anemia Course: 13:25 My interpretation patient's laboratory evaluation is as follows: CBC CMP were normal. Coags were normal including a negative D-dimer which is reassuring suggesting that she does not have aortic dissection or PE as the cause of her pain. CMP was normal. First troponin at 10:58 hours was below detectable limits. TSH was normal. Patient's pain was initially 3/10 and did resolve completely after receiving nitroglycerin. However, her pain is now returned in his 1 to 2/10 therefore I ordered nitroglycerin paste 1 in to her chest wall. She was also given Tylenol 975 mg orally for headache. I am concerned that the patient may have new onset angina which is triggered by her tachycardia. I did discuss over the phone, the patient's presentation and findings with our dictating machine transcriber, Dr. Leo. Dr. Leo and recommended admission for further evaluation. I did discuss admission over tiger text with the covering hospitalist, physician records management assistant Sofía Spring. Admission/Observation Consideration of admission/observation: Escalation of care including admission/observation considered (Yes) Consult Healthcare Provider Management of the patient was discussed with: Hospitalist and Road Mixer Operator (Dr. Soares) Lab Data [facility] Lab Attestation statement: I reviewed the patient's lab results. 09/19/24 10:58 09/19/24 10:58 Labs: Lab Results 09/19/24 Range/Units 10:58 WBC 6.5 (4.8-10.8) X10*3/uL RBC 4.20 (4.20-5.50) X10*6/uL Hgb 13.2 (12.0-16.0) g/dl Hct 38.6 (37.0-47.0) % MCV 91.9 (80.0-98.0) fL MCH 31.4 (27.0-33.0) pg MCHC 34.2 (31.0-35.0) g/dl RDW 12.3 (11.0-16.0) % Plt Count 216 (160-400) X10*3/uL MPV 9.9 (9.4-12.3) fL Immature Gran % (Auto) 0.3 (0.0-0.4) % Neut % (Auto) 62.2 (45-73) % Lymph % (Auto) 27.9 (20-40) % Stafford % (Auto) 5.1 (2-11) % Eos % (Auto) 3.9 (0-4) % Baso % (Auto) 0.6 (0-2) % Lymph # (Auto) 1.8 (1.2-4.9) X10*3/uL Stafford # (Auto) 0.3 (0.1-1.2) X10*3/uL Eos # (Auto) 0.3 (0.0-0.4) X10*3/uL Baso # (Auto) 0.0 (0.0-0.2) X10*3/uL Abs Immat Gran (auto) 0.02 (0.00-0.03) X10*3/uL Absolute Neuts (auto) 4.0 (2.0-8.3) x10*3/uL Absolute Nucleated RBC 0.000 (0.0-0.012) X10*3/uL Nucleated RBC % (auto) 0.0 (0.0-0.2) /100WBC PT 11.0 (10.9-12.4) SEC INR 0.9 (0.9-1.1) APTT 30.2 (26.0-36.8) SEC D-Dimer High Sensitivty < 150 NG/ML Sodium 140 (135-145) mmol/L Potassium 4.2 (3.3-5.1) mmol/L Chloride 107 (96-108) mmol/L Carbon Dioxide 27 (22-29) mmol/L Anion Gap 10 L (12-20) BUN 14 (9-16) mg/dL Creatinine 0.79 (0.5-1.4) mg/dL Estim Creat Clear Calc 74.0 Estimated GFR > 60 Random Glucose 87 (60-115) mg/dL Calcium 10.5 H (8.4-10.2) mg/dL Magnesium 2.0 (1.6-2.6) mg/dL Total Bilirubin 0.4 (0.0-1.0) mg/dL AST 23 (5-31) U/L ALT 23 (0-31) U/L Alkaline Phosphatase 113 (39-117) U/L Troponin I High Sens < 2.7 (<3.5-17.0) ng/L B-Natriuretic Peptide 10 (<100) pg/mL Total Protein 7.3 (6.5-8.0) g/dL Albumin 4.3 (3.5-5.0) g/dL Lipase 51 (8-78) U/L TSH 0.88 (0.32-4.0) uIU/mL Independent Interpretation I performed an independent interpretation of an: EKG Interpretation: EKG 1. Done at 10:09 hours is as follows: Sinus bradycardia with a rate of 53, normal IA interval, QRS duration QTC interval, no ST segment elevation, no ST segment depression, no PACs, no PVCs, no significant T-wave abnormalities. EKG was with chest pain EKG 2. Done at 11:42 hours: Sinus bradycardia with a rate of 53, normal IA interval, QRS duration QTC interval, no ST segment elevation, no ST segment depression, no PACs, no PVCs, no significant T-wave abnormalities. EKG was done when the patient was pain-free. Radiology Impression Discussion of test interpretation with radiology: I have reviewed the radiologist's reading. Discharge Plan Discharge Prescriptions: No Action metoprolol succinate 25 mg tablet extended release 24 hr 25 mg PO DAILY Qty: 90 3RF rapzsdjwnw-mazbkchzverrn-xbjk 50-325-40 mg tablet 1 tab PO Q6H PRN (Reason: headache) ropinirole 0.25 mg tablet 1 - 2 tab PO BEDTIME albuterol sulfate [Ventolin HFA] 90 mcg/actuation HFA aerosol inhaler 1 puff inhalation Q4-6H PRN (Reason: Wheezing) rizatriptan 10 mg tablet 10 mg PO DAILY omeprazole 20 mg Capsule,Delayed Release(Dr/Ec) 20 mg PO DAILY ondansetron HCl 8 mg tablet 1 tab PO Q8H PRN (Reason: nausea/vomiting) ascorbate calcium (vitamin C) 500 mg tablet 1 g PO Q6H ibuprofen [IBU] 400 mg tablet 400 mg PO Q8H cholecalciferol (vitamin D3) 25 mcg (1,000 unit) capsule 25 mcg PO DAILY Repatha SureClick 140 mg/mL pen injector 140 mg subcut Q2W Qty: 2 5RF Print Language: Marshallese
--- OUTSIDE RECORDS SUMMARY | 2024-09-19 10:30 | XMS_ITS | Patient Health Record ---
Author Organization [facility] Address [address] [place] [address] Care Team Providers Care Field Rep Name Role Phone Baldo Flaherty MD Primary Care Provider Oswald Desai Jr Unavailable [phone] ALLERGIES Allergen (clinical drug ingredient) Drug/Non Drug Allergy documented on EMR Reaction Allergy Type Onset Date Status levofloxacin Levofloxacin Unknown Drug Allergy A ctive diphenhydramine Benadryl Unknown Drug Allergy A ctive REASON FOR REFERRAL No Information MEDICATIONS Medication SIG (Take, Route, Frequency, Duration) Notes Start Date End Date Status Fioricet 50-300-40 MG 1 capsule as neede d Orally every 4 hrs Active Turmeric Active Omeprazole 20 MG 1 capsule Orally Onc e a day PRN Active Vitamin D 50 MCG (1999) Orally Active Ibuprofen 600 MG 1 tablet Orally Thre e times a day PRN Active rOPINIRole HCl 0.25 MG Orally Active IMMUNIZATIONS Vaccine Route Administration Date Status Comme nts Influenza Unknown 11/10/2020 Refused SOCIAL HISTORY Sex Assigned At : Social History Observation Description Sex Assigned At Unknown PROBLEMS Problem Type ICD Code Onset Dates Problem Status W/U Status Risk SNOMED Code Notes Problem GERD without esophagitis (K21.9) Active confirmed 718686621 Problem Epigastric pain (R10.13) Active confirmed 42645361 Problem Colon cancer screening (Z12.11) Active confirmed 159801664 Problem Rectal bleeding (K62.5) Active confirmed 02847096 Problem Abnormal CT scan, colon (R93.3) Active confirmed 876262397 PLAN OF TREATMENT Future Test Test Name Order Date COLONOSCOPY 03/25/2015 UPPER GI ENDOSCOPY 11/10/2020 COLONOSCOPY 11/10/2020 COLONOSCOPY 11/23/2022 Insurance Providers Payer Name Payer Address Payer Phone Subscriber Number Group Number Insured Name Patient Relationship to Insured Coverage Start Date Coverage End Date [employer] [address] [address] [place] [address] [id number] CHELSEY BRAXTON Self - patient is the insured MEDICAL (GENERAL) HISTORY Medical History History ICD Code colonoscopy 01/09, small hyperplastic alexx yp, ten-year followup gerd EGD 01/09, fundic gland polyps, no B E or HP elevated cholesterol positive hepatitis C antibody, negative viremia restless leg syndrome Nephrolithiasis Asthmatic bronchitis Surgical History Surgery Date(Month/Year) hemorrhoid surgery left knee replacement
--- OUTSIDE RECORDS SUMMARY | 2024-09-19 10:30 | XMS_ITS | Patient Health Record ---
Author Organization [facility] Address [address] [place] [address] Care Team Providers Care Loom Blower Name Role Phone Baldo Flaherty MD Primary Care Provider Cesia Jeffery Unavailable [phone] ALLERGIES Allergen (clinical drug ingredient) Drug/Non Drug Allergy documented on EMR Reaction Allergy Type Onset Date Status diphenhydramine Benadryl hyper Drug Allergy A ctive ciprofloxacin Cipro frozen shoulder Drug Allergy Active meperidine Demerol vomiting Drug Allergy Active Levaquin frozen shoulder Drug Allergy A ctive REASON FOR REFERRAL No Information MEDICATIONS Medication SIG (Take, Route, Frequency, Duration) Notes Start Date End Date Status rOPINIRole HCl 0.25 MG 1 tablet 1 to 3 h ours before bedtime Orally Once a day for 30 day(s) Active Simvastatin Not-Taki ng Maxalt Not-Taking Butabarbital Sodium Not-Taking Antacid Active Multivitamins as directed Orally Not-Taking Fioricet Active Zantac 150 MG 1 tablet Orally Twic e a day for 30 day(s) Not-Taking Ibuprofen Active [employer]otics . . . for . 11/22/2015 Not-Taking Meloxicam 15 MG 1 tablet Orally Once a day for 30 Not-Taking Lipitor 20 MG 1 tablet Orally Once a day for 30 day(s) Not-Taking Calcium + D 600-200 MG-UNIT 1 tablet with food Orally Once a day for 30 day(s) Not-Taking SOCIAL HISTORY Tobacco Use: Social History Observation Description Date Details (start date - stop date) Former Smoker NA - NA Sex Assigned At : Social History Observation Description Sex Assigned At Unknown Tobacco Use/Smoking Question Answer Notes Are you a: former smoker Additional Findings: Tobacco Non-User Current no n-smoker Alcohol Screen Question Answer Notes Did you have a drink containing alcohol in the p ast year? No Points 0 Interpretation Negative Tobacco use other than smoking: Question Answer Notes Are you an other tobacco user? No PROBLEMS Problem Type ICD Code Onset Dates Problem Status W/U Status Risk SNOMED Code Notes Problem Hallux valgus (acquired), right foot (M20.11) Active confirmed [id number] PLAN OF TREATMENT Pending Test Test Name Order Date X ray : Ankle, right 2V 05/17/2022 X ray : Foot, right 3V 05/17/2022 X ray : Foot, right 3V 01/24/2012 [id number], [id number]/[id number], JOINT/BURSA 0 01/24/2012 [id number] TENDON SHEATH/LIGAMENT 0 03/25/[id number] TENDON SHEATH/LIGAMENT 1 Insurance Providers Payer Name Payer Address Payer Phone Subscriber Number Group Number Insured Name Patient Relationship to Insured Coverage Start Date Coverage End Date [employer] [address] [address] [place] [address] [id number] Jefe Alvarez Spouse - patient is the spouse of the insured MEDICAL (GENERAL) HISTORY Medical History History ICD Code chicken pox measles mumps back, hip, knee pain headaches/migraines reflux Arthritis CAD (Cholesterol) Psoriasis/eczema Joint implants/screws Herniated disc Surgical History Surgery Date(Month/Year) hemorrhoidectomy 1969 total knee surgery, left colonoscopy 2014 herniated disc 2009
--- OUTSIDE RECORDS SUMMARY | 2024-09-19 10:30 | XMS_ITS | Continuity of Care Document ---
Author Organization [facility] Address [address] [place] [address] [place] [address] Encounter OCHOA_ROMINA [id number] Date(s): 06/02/22 - 06/04/[address] [place] [address]- [place] Encounter Diagnosis Colitis(Discharge Diagnosis) - 06/02/22 Restless legs syndrome(Discharge Diagnosis) - 06/02/22 Headache(Discharge Diagnosis) - 06/04/22 Blood pressure elevated without history of HTN(Discharge Diagnosis) - 06/03/22 High cholesterol(Discharge Diagnosis) - 06/02/22 Gastric reflux(Discharge Diagnosis) - 06/04/22 Discharge Disposition: Home or Self Care Attending Physician: Marga Lee MD Admitting Physician: Jesus CHAND, Marga Valentine Allergies, Adverse Reactions, Alerts Substance Reaction Severity Status Levaquin Active Benadryl Active Assessment and Plan Extracted from: Title:Progress/APSO Note* Author:Marga Solano Date:06/03/22 1.??Colitis??K52.9 ?--Presented with acute onset LLQ abd pain, nausea, and bloody diarrhea --CT A/P with colitis involving transverse, descending and sigmoid colon worst within the descending portion --Primary suspicion for infectious etiology -- also considering inflammatory but without known??h/o IBD --Low suspicion for ischemic etiology given normal lactic levels -- imaging reviewed by [facility] without findings c/w ischemia, appreciate assistance --No e/o systemic involvement as no??SIRS criteria met without fever, tachycardia, nor leukocytosis --GI film array negative --Reassuring abdominal exam without e/o peritonitis, continue serial abd exams --Supportive care with MIVFs at 125 cc/hr --Advance to bland diet --Pain control with PRN IV Tylenol and PRN Dilaudid --Antiemetics and anti-diarrheal??PRN --Continue empiric abx coverage with Zosyn --Defer formal evaluation for IBD at present, but recommend outpt follow-up with EGD??and fecal leukocytes??should diarrhea persist x4 weeks despite??abx??treatment --Clinically improving with decreased abd pain,??nausea, and reduced??frequency and volume of bloody stools -- advance diet and continue to await achivement of symptomatic control allowing safe travel home ?? 2.??Blood pressure elevated without history of HTN??R03.0 ?--2/2 discomfort related to acute illness --No e/o hypertensive emergency without e/o end-organ involvement --No pharmacologic intervention recommended at this time, will tolerate??BPs to ~200/100 --BPs improving with continue symptomatic improvement ?? 3.??Gastric reflux??K21.9 ?--Continue PRN H2B ?? 4.??Restless legs syndrome??G25.81 ?--Continue ropinirole qHS ?? 5.??High cholesterol??E78.00 ?--Not on pharmacologic treatment ?? 6.??Chemoprevention??Z29.8 ?--Lovenox 40mg qday -- Caprini score 3, moderate risk of VTE --IS ? 7. Code -- Full Code ?? Dispo -- Pending continued??symptomatic improvement in acute colitis, anticipate discharge tomorrow AM to allow for travel home to [place] -- admitted to observation status ?? 25??minutes floor/unit time spent with >50% counseling/coordinating care. Chart reviewed. Patient updated at bedside regarding care plan as outlined above.??Case/Care Plan discussed with Case Management and nursing staff. ?? Extracted from: Title:Admission H & P Author:Jesus CHAND, Doris Valentine Date:06/02/22 1.??Colitis??K52.9 ??--Presenting with acute onset LLQ abd pain, nausea, and bloody diarrhea --CT A/P with colitis involving transverse, descending and sigmoid colon worst within the descending portion --Primary suspicion for infectious etiology -- also considering inflammatory but without known??h/o IBD --Low suspicion for ischemic etiology given normal lactic levels -- imaging reviewed by [facility] without findings c/w ischemia, appreciate assistance --No e/o systemic involvement as no??SIRS criteria met without fever, tachycardia, nor leukocytosis --GI film array negative --Reassuring abdominal exam without e/o peritonitis, continue serial abd exams --Supportive care with MIVFs at 125 cc/hr --Bowel rest, CLD --Pain control with PRN IV Tylenol and PRN Dilaudid --Antiemetics and anti-diarrheal??PRN ? --Continue empiric abx coverage with Zosyn --Defer formal evaluation for IBD at present, but recommend outpt follow-up with EGD??and fecal leukocytes??should diarrhea persist x4 weeks despite??abx??treatment --Monitor for??clinical improvement ? 2.??Gastric reflux??K21.9 ??--Continue PRN H2B ?? 3.??Restless legs syndrome??G25.81 ??--Continue ropinirole qHS ?? 4.??High cholesterol??E78.00 ??--Not on pharmacologic treatment ?? 5.??Chemoprevention??Z29.8 ??--Lovenox 40mg qday -- Caprini score 3, moderate risk of VTE --IS ? 6. Code -- Full Code ?? Dispo -- Pending symptomatic improvement in acute colitis -- admit to observation status -- anticipate hospitalization <2 midnights ? 70??minutes floor/unit time spent with >50% counseling/coordinating care. Chart reviewed. Patient updated at bedside regarding care plan as outlined above.??Case/Care Plan discussed with Dr. Whitley, Dr. Jonas,?? Baldo Dunne PA-C, and nursing staff. ? Functional Status 06/04/22 Activity Status ADL Ambulating in room Activity Assistance Independent Assistive Device None Positioning/Pressure Reducing Devices Pi llow Pressure Reducing Device for Bed Alterna ting air Diet Type Young Feeding Assistance Independent ADLs Independent Patient Position [facility]-[place]'s Safety Education Skin, Inpatient Safety Unit Procedures Education Call Light, Bed Functions, Staffing, Equipment Teaching Evaluation Verbalizes [place] Individuals Taught Patient Elimination Assistance Offered Q2H Indep endent Personal Care Provided Independent 06/03/22 Living Environment No Living Environmen t Information Available Lives In Multilevel home Lives With Spouse/significant o ther Living Situation Home with family car e Home Barriers None Patient's Responsibilities Home manageme nt, Housework, Personal ADL, Social participation, Work Current Home Treatments None Home Equipment None Professional Skilled Services None Special Services and Community Resources None Sensory Deficits None 06/02/22 Mobility Assistance Prior to Admission I ndependent Medications Augmentin 875 mg-125 mg oral tablet amoxicillin (as trihydrate) 1 tab(s), PO, BID, X 10 day(s), # 20 tab(s), 0 Refill(s), Pharmacy: [facility], 1 tab(s) PO BID,x10 day(s) Start Date: 06/02/22 Stop Date: 06/12/22 Status: Ordered Fioricet oral tablet 1 tab(s), PO, q4hr, PRN as needed for headache Start Date: 06/02/22 Status: Ordered ibuprofen 200 mg oral tablet 3 Tab(s), PO, as needed Start Date: 06/02/22 Status: Ordered raNITIdine 150 mg oral tablet 150 mg = 1 tab(s), PO, as needed Start Date: 06/02/22 Status: Ordered rOPINIRole 0.25 mg oral tablet 0.25 mg = 1 tab(s), PO, at bedtime Start Date: 06/02/22 Status: Ordered Zofran 4 mg oral tablet 4 mg = 1 tab(s), PO, q4hr, PRN as needed for nausea, # 20 tab(s), 0 Refill(s), restart home med (Rx) Start Date: 06/04/22 Stop Date: 06/11/22 Status: Ordered Mental Status 06/04/22 Level of Consciousness Alert Orientation Oriented x 3 Affect/Behavior Appropriate, Calm, Cooperative Respirations Unlabored Skin Temperature Warm 06/02/22 Skin Color/Description Normal for ethnic ity Problem List Condition Effective Dates Status Health Status Inform ant Diverticulitis(Confirmed) Active patient Gastric reflux(Confirmed) Active High cholesterol(Confirmed) Active patient Migraine(Confirmed) Active patie nt Mitral valve prolapse(Confirmed) Active patient Restless legs syndrome(Confirmed) Active Procedures Procedure Date Related Diagnosis Body Site Status COLLECTION VENOUS BLOOD VENIPUNCTURE 06/03/22 Completed COLLECTION VENOUS BLOOD VENIPUNCTURE 06/03/22 Completed COLLECTION VENOUS BLOOD VENIPUNCTURE 06/02/22 Completed Arthroplasty of knee 2011 Comp leted Hemorrhoidectomy Complete d Results Laboratory List Name Date Complete Blood Count w/ Automated Diff ( CBC w/Auto Diff) 06/04/22 Comprehensive Metabolic Panel (CMP) 06/04 Complete Blood Count w/ Automated Diff Comprehensive Metabolic Panel 06/03/22 Lactic Acid 06/02/22 Lactic Acid 06/02/22 Most recent to oldest [Reference Range]: 1 2 NRBC Auto 0.0 /100 WBC *NA* (06/04/22 6:06 AM) 0.0 /100 WBC *NA* (06/03/22 6:30 AM) NRBC Abs [0.00-0.01 K/mcL] 0.00 K/mcL (06/04/22 6:06 AM) 0.00 K/mcL (06/03/22 6:30 AM) Creatinine [0.52-1.04 mg/dL] 0.70 mg/dL (06/04/22 6:06 AM) 0.70 mg/dL (06/03/22 6:30 AM) Albumin Level [3.5-5.0 gm/dL] 3.5 gm/dL (06/04/22 6:06 AM) 3.5 gm/dL (06/03/22 6:30 AM) Alk Phos [38-126 Intl_units/L] 105 Intl_ units/L (06/04/22 6:06 AM) 116 Intl_units/L (06/03/22 6:30 AM) ALT [<=35 Intl_units/L] 22 Intl_units/L (06/04/22 6:06 AM) 22 Intl_units/L (06/03/22 6:30 AM) AST [14-36 Intl_units/L] 28 Intl_units/L (06/04/22 6:06 AM) 28 Intl_units/L (06/03/22 6:30 AM) Basophil Auto 0.4 % *NA* (06/04/22 6:06 AM) 0.3 % *NA* (06/03/22 6:30 AM) Bili Total [0.2-1.3 mg/dL] 0.5 mg/dL (06/04/22 6:06 AM) 0.8 mg/dL (06/03/22 6:30 AM) CO2 [22-30 mEq/L] 28 mEq/L (06/04/22 6:06 AM) 26 mEq/L (06/03/22 6:30 AM) Eos Auto 5.5 % *NA* (06/04/22 6:06 AM) 3.4 % *NA* (06/03/22 6:30 AM) Glucose Level [74-106 mg/dL] 94 mg/dL (06/04/22 6:06 AM) 108 mg/dL *HI* (06/03/22 6:30 AM) Hct [36.0-46.0 %] 35.4 % *LOW* (06/04/22 6:06 AM) 36.7 % (06/03/22 6:30 AM) Hgb [12.0-16.0 gm/dL] 11.8 gm/dL *LOW* (06/04/22 6:06 AM) 12.3 gm/dL (06/03/22 6:30 AM) Lactic Acid Lvl [0.7-2.1 mmol/L] 1.1 mmo l/L (06/02/22 3:07 PM) 1.1 mmol/L (06/02/22 11:50 AM) Lymph Auto 19.9 % *NA* (06/04/22 6:06 AM) 10.7 % *NA* (06/03/22 6:30 AM) MCH [26-34 pg] 31 pg (06/04/22 6:06 AM) 31 pg (06/03/22 6:30 AM) MCHC [31-37 gm/dL] 33 gm/dL (06/04/22 6:06 AM) 34 gm/dL (06/03/22 6:30 AM) MCV [80-100 fL] 92 fL (06/04/22 6:06 AM) 92 fL (06/03/22 6:30 AM) Broome Auto 4.8 % *NA* (06/04/22 6:06 AM) 5.6 % *NA* (06/03/22 6:30 AM) MPV [5.3-11.7 fL] 10.2 fL (06/04/22 6:06 AM) 10.4 fL (06/03/22 6:30 AM) Neutro Auto 69.0 % *NA* (06/04/22 6:06 AM) 79.8 % *NA* (06/03/22 6:30 AM) Platelet [150-450 K/mcL] 182 K/mcL (06/04/22 6:06 AM) 187 K/mcL (06/03/22 6:30 AM) Potassium Level [3.5-5.1 mEq/L] 3.5 mEq/ L (06/04/22 6:06 AM) 3.5 mEq/L (06/03/22 6:30 AM) RBC [4.00-5.20 millions/mcL] 3.83 millio ns/mcL *LOW* (06/04/22 6:06 AM) 3.98 millions/mcL *LOW* (06/03/22 6:30 AM) RDW [11.5-14.5 %] 12.7 % (06/04/22 6:06 AM) 12.7 % (06/03/22 6:30 AM) Sodium Level [130-144 mEq/L] 141 mEq/L (06/04/22 6:06 AM) 138 mEq/L (06/03/22 6:30 AM) Total Protein [6.3-8.2 gm/dL] 6.5 gm/dL (06/04/22 6:06 AM) 6.6 gm/dL (06/03/22 6:30 AM) BUN [7-17 mg/dL] 5 mg/dL *LOW* (06/04/22 6:06 AM) 8 mg/dL (06/03/22 6:30 AM) Calcium [8.4-10.2 mg/dL] 8.6 mg/dL (06/04/22 6:06 AM) 8.6 mg/dL (06/03/22 6:30 AM) Chloride [98-112 mEq/L] 107 mEq/L (06/04/22 6:06 AM) 106 mEq/L (06/03/22 6:30 AM) WBC [4.5-11.5 K/mcL] 8.5 K/mcL (06/04/22 6:06 AM) 9.8 K/mcL (06/03/22 6:30 AM) Neutro Abs [1.80-6.80 K/mcL] 5.88 K/mcL (06/04/22 6:06 AM) 7.80 K/mcL *HI* (06/03/22 6:30 AM) Lymph Abs [1.50-4.00 K/mcL] 1.69 K/mcL (06/04/22 6:06 AM) 1.05 K/mcL *LOW* (06/03/22 6:30 AM) Broome Abs [0.45-1.30 K/mcL] 0.41 K/mcL *LOW* (06/04/22 6:06 AM) 0.55 K/mcL (06/03/22 6:30 AM) Eos Abs [<=0.60 K/mcL] 0.47 K/mcL (06/04/22 6:06 AM) 0.33 K/mcL (06/03/22 6:30 AM) Basophil Abs [<=0.20 K/mcL] 0.03 K/mcL (06/04/22 6:06 AM) 0.03 K/mcL (06/03/22 6:30 AM) IG Auto 0.4 % *NA* (06/04/22 6:06 AM) 0.2 % *NA* (06/03/22 6:30 AM) IG Abs [<=0.05 K/mcL] 0.03 K/mcL (06/04/22 6:06 AM) 0.02 K/mcL (06/03/22 6:30 AM) eGFR [>=60] >60 1 (06/04/22 6:06 AM) >60 2 (06/03/22 6:30 AM) 1Result Comment: eGFR reported in mL/min/1.73 m2. An eGFR value of 30-59 indicates a moderate reduction in GFR. An eGFR value of 12-29 indicates a severe reduction in GFR. An eGFR value less than 15 is an indication of kidney failure. The eGFR result is not valid for patients over 70 years of age. 2Result Comment: eGFR reported in mL/min/1.73 m2. An eGFR value of 30-59 indicates a moderate reduction in GFR. An eGFR value of 12-29 indicates a severe reduction in GFR. An eGFR value less than 15 is an indication of kidney failure. The eGFR result is not valid for patients over 70 years of age. Vital Signs Most recent to oldest [Reference Range]: 1 Admission/Dosing Weight 89.6 kg (06/02/22 10:56 AM) Blood Pressure [90-140/60-90 mmHg] 150/6 0mmHg *HI* (06/04/22 8:19 AM) Heart Rate Monitored [60-100 bpm] 55 bpm *LOW* (06/04/22 8:19 AM) Mean Arterial Pressure [66 mmHg] 90 mmHg (06/04/22 8:19 AM) Peripheral Pulse Rate [60-100 bpm] 59 bp m *LOW* (06/03/22 5:30 AM) Respiratory Rate [14-20 br/min] 16 br/mi n (06/04/22 8:19 AM) Temperature Temporal [35.8-37.3 DegC] 37 .2 DegC (06/04/22 8:19 AM) Weight 89.6 kg (06/02/22 4:08 PM) Social History Social History Type Response Smoking Status Former smoker, quit more than 30 days ago entered on: 06/02/22 Sex Female Hospital Discharge Instructions Patient Education 06/04/2022 10:05:45 Colitis Colitis Introduction Colitis is inflammation of the colon. Colitis may last a short time (acute) or it may last a long time (chronic). What are the causes? This condition may be caused by:??? Viruses. ??? Bacteria. ??? Reactions to medicine. ??? Certain autoimmune diseases, such as Crohn disease or ulcerative colitis. What are the signs or symptoms? Symptoms of this condition include:??? Diarrhea. ??? Passing bloody or tarry stool. ??? Pain. ??? Fever. ??? Vomiting. ??? Tiredness (fatigue). ??? Weight loss. ??? Bloating. ??? Sudden increase in abdominal pain. ??? Having fewer bowel movements than usual. How is this diagnosed? This condition is diagnosed with a stool test or a blood test. You may also have other tests, including X-rays, a CT scan, or a colonoscopy.How is this treated? Treatment may include: ??? Resting the bowel. This involves not eating or drinking for a period of time. ??? Fluids that are given through an IV tube. ??? Medicine for pain and diarrhea. ??? Antibiotic medicines. ??? Cortisone medicines. ??? Surgery. Follow these instructions at home: Eating and drinking??? Follow instructions from your health care provider about eating or drinking restrictions. ??? Drink enough fluid to keep your urine clear or pale yellow. ??? Work with a dietitian to determine which foods cause your condition to flare up. ??? Avoid foods that cause flare-ups. ??? Eat a well-balanced diet. Medicines??? Take [id number] and prescription medicines only as told by your health care provider. ??? If you were prescribed an antibiotic medicine, take it as told by your health care provider. Donot stop taking the antibiotic even if you start to feel better. General instructions??? Keep all follow-up visits as told by your health care provider. This is important. Contact a health care provider if: ??? Your symptoms do not go away. ??? You develop new symptoms. Get help right away if: ??? You have a fever that does not go away with treatment. ??? You develop chills. ??? You have extreme weakness, fainting, or dehydration. ??? You have repeated vomiting. ??? You develop severe pain in your abdomen. ??? You pass bloody or tarry stool. This information is not intended to replace advice given to you by your health care provider. Make sure you discuss any questions you have with your health care provider. Document Released: 12/13/2005 Document Revised: 04/12/2017 Document Reviewed: 02/28/2016 ?? 2017 [employer]
--- OUTSIDE RECORDS SUMMARY | 2024-09-19 10:30 | XMS_ITS | Continuity of Care Document ---
Author Organization [facility] Address [address] [place], [place] [address] [address] Encounter OCHOA_ROMINA [id number] Date(s): 06/02/22 - 06/02/[address] [place] [address]- Encounter Diagnosis Colitis(Discharge Diagnosis) - 06/02/22 Discharge Disposition: Home or Self Care Attending Physician: Neo Whitley MD Admitting Physician: Neo Whitley MD Allergies, Adverse Reactions, Alerts Substance Reaction Severity Status Levaquin Active Benadryl Active Functional Status 06/02/22 Individuals Taught Patient, Spouse Medications Augmentin 875 mg-125 mg oral tablet amoxicillin (as trihydrate) 1 tab(s), PO, BID, X 10 day(s), # 20 tab(s), 0 Refill(s), Pharmacy: [facility], 1 tab(s) PO BID,x10 day(s) Start [...] at bedtime Start Date: 06/02/22 Status: Ordered Mental Status 06/02/22 Level of Consciousness Alert Orientation Oriented x 3 Respirations Unlabored Skin Color/Description Normal for ethnic ity Problem List Condition Effective Dates Status Health Status Inform ant Diverticulitis(Confirmed) Active patient Gastric reflux(Confirmed) Active High cholesterol(Confirmed) Active patient Migraine(Confirmed) Active patie nt Mitral valve prolapse(Confirmed) Active patient Restless legs syndrome(Confirmed) Active Procedures Procedure Date Related Diagnosis Body Site Status COLLECTION VENOUS BLOOD VENIPUNCTURE 06/02/22 Completed Arthroplasty of knee 2011 Comp leted Hemorrhoidectomy Complete d Results Laboratory List Name Date Complete Blood Count w/ Automated Diff ( CBC w/Auto Diff) 06/02/22 Comprehensive Metabolic Panel (CMP) 06/02 Most recent to oldest [Reference Range]: 1 NRBC Auto 0.0 /100 WBC *NA* (06/02/22 7:53 AM) NRBC Abs [0.00-0.01 K/mcL] 0.00 K/mcL (06/02/22 7:53 AM) Creatinine [0.52-1.04 mg/dL] 0.70 mg/dL (06/02/22 7:53 AM) Albumin Level [3.5-5.0 gm/dL] 4.5 gm/dL (06/02/22 7:53 AM) Alk Phos [38-126 Intl_units/L] 153 Intl_ units/L *HI* (06/02/22 7:53 AM) ALT [<=35 Intl_units/L] 26 Intl_units/L (06/02/22 7:53 AM) AST [14-36 Intl_units/L] 31 Intl_units/L (06/02/22 7:53 AM) Basophil Auto 0.3 % *NA* (06/02/22 7:53 AM) Bili Total [0.2-1.3 mg/dL] 0.4 mg/dL (06/02/22 7:53 AM) CO2 [22-30 mEq/L] 25 mEq/L (06/02/22 7:53 AM) Eos Auto 0.5 % *NA* (06/02/22 7:53 AM) Glucose Level [74-106 mg/dL] 121 mg/dL *HI* (06/02/22 7:53 AM) Hct [36.0-46.0 %] 41.8 % (06/02/22 7:53 AM) Hgb [12.0-16.0 gm/dL] 14.3 gm/dL (06/02/22 7:53 AM) Lymph Auto 12.0 % *NA* (06/02/22 7:53 AM) MCH [26-34 pg] 31 pg (06/02/22 7:53 AM) MCHC [31-37 gm/dL] 34 gm/dL (06/02/22 7:53 AM) MCV [80-100 fL] 90 fL (06/02/22 7:53 AM) [place] Auto 3.4 % *NA* (06/02/22 7:53 AM) MPV [5.3-11.7 fL] 10.3 fL (06/02/22 7:53 AM) Neutro Auto 83.4 % *NA* (06/02/22 7:53 AM) Platelet [150-450 K/mcL] 228 K/mcL (06/02/22 7:53 AM) Potassium Level [3.5-5.1 mEq/L] 3.8 mEq/ L (06/02/22 7:53 AM) RBC [4.00-5.20 millions/mcL] 4.62 millio ns/mcL (06/02/22 7:53 AM) RDW [11.5-14.5 %] 12.6 % (06/02/22 7:53 AM) Sodium Level [130-144 mEq/L] 139 mEq/L (06/02/22 7:53 AM) Total Protein [6.3-8.2 gm/dL] 8.1 gm/dL (06/02/22 7:53 AM) BUN [7-17 mg/dL] 14 mg/dL (06/02/22 7:53 AM) Calcium [8.4-10.2 mg/dL] 9.6 mg/dL (06/02/22 7:53 AM) Chloride [98-112 mEq/L] 106 mEq/L (06/02/22 7:53 AM) WBC [4.5-11.5 K/mcL] 11.2 K/mcL (06/02/22 7:53 AM) Neutro Abs [1.80-6.80 K/mcL] 9.29 K/mcL *HI* (06/02/22 7:53 AM) Lymph Abs [1.50-4.00 K/mcL] 1.34 K/mcL *LOW* (06/02/22 7:53 AM) [place] Abs [0.45-1.30 K/mcL] 0.38 K/mcL *LOW* (06/02/22 7:53 AM) Eos Abs [<=0.60 K/mcL] 0.06 K/mcL (06/02/22 7:53 AM) Basophil Abs [<=0.20 K/mcL] 0.03 K/mcL (06/02/22 7:53 AM) IG Auto 0.4 % *NA* (06/02/22 7:53 AM) IG Abs [<=0.05 K/mcL] 0.05 K/mcL (06/02/22 7:53 AM) eGFR [>=60] >60 1 (06/02/22 7:53 AM) 1Result Comment: eGFR reported in mL/min/1.73 m2. An eGFR value of 30-59 indicates a moderate reduction in GFR. An eGFR value of 12-29 indicates a severe reduction in GFR. An eGFR value less than 15 is an indication of kidney failure. The eGFR result is not valid for patients over 70 years of age. Radiology Reports * Exam Date Time Procedure Performing Provider Status 06/02/22 8:[address] Abdomen and Pelvis w/ Contrast Kylah chito RT, Jefe B; Auth (Verified) Notes: (CT Abdomen and Pelvis w/ Contrast) Reason For Exam: Abdominal pain, acute, nonlocalized RADIOLOGY REPORT EXAMINATION: CT SCAN OF THE ABDOMEN AND PELVIS WITH INTRAVENOUS CONTRAST DATE OF EXAM: 06/02/2022 8:30 AM HISTORY: Abdominal pain COMPARISON: None. TECHNIQUE: CT examination of the abdomen and pelvis was performed following the intravenous administration of [address] dose lowering techniques were used, to include: automated exposure control, adjustment for patient size, and/or use of iterative reconstruction. FINDINGS: ABDOMEN/PELVIS: Lower Chest: There is a pectus excavatum appearance of the chest, partially visualized. Otherwise normal. Liver: Normal. Gallbladder/Biliary: Normal. Pancreas: Normal. Spleen: Normal. Adrenal Glands: Normal. Kidneys: Normal. GI Tract: There is diffuse clonic wall thickening involving the transverse, descending, and sigmoidcolon with mild hazy stranding surrounding the descending portion. Mesentery/Peritoneum: No ascites or pneumoperitoneum. As mentioned above there is mild hazy stranding surrounding the descending colon. Vasculature: Relatively mild atherosclerosis is scattered throughout. Lymph Nodes: Normal. Abdominal Wall: Normal. Bladder: Normal. Reproductive: Normal. Musculoskeletal: There are degenerative changes in the thoracolumbar spine. IMPRESSION: 1. Colitis involving transverse, descending and sigmoid colon worst within the descending portion. Presumably this is inflammatory or infectious with ischemic etiology not entirely excluded. 2. Other chronic and incidental findings as above. Thank you for the referral of this patient. This exam was interpreted by an [place] [employer] certified radiologist with subspecialty fellowship training. If there are any questions regarding this exam please feel free to contact a radiologist directly at [phone]. Slot 2 Electronically signed by: Adams Pandey 06/02/2022 8:53 AM Final Interpreted by: Adams Pandey MD Signed (Electronic Signature): 06/02/2022 8:53 am Signed by: Adams Pandey MD Vital Signs Most recent to oldest [Reference Range]: 1 Admission/Dosing Weight 87.6 kg (06/02/22 7:38 AM) Blood Pressure [90-140/60-90 mmHg] 138/7 9mmHg (06/02/22 9:34 AM) Mean Arterial Pressure [66 mmHg] 99 mmHg (06/02/22 9:34 AM) Peripheral Pulse Rate [60-100 bpm] 62 bp m (06/02/22 9:34 AM) Respiratory Rate [14-20 br/min] 16 br/mi n (06/02/22 9:34 AM) Temperature Temporal [35.8-37.3 DegC] 36 .6 DegC (06/02/22 7:38 AM) Social History Social History Type Response Smoking Status Former smoker, quit more than 30 days ago entered on: 06/02/22 Sex Female Hospital Discharge Instructions Patient Education 06/02/2022 09:12:07 What You Need to Know about Radiation Exposure from Procedures What You Need to Know about Radiation Exposure from Procedures Radiation is a form of energy that can enter the cells in your body. Radiation is used in some common medical procedures. X-rays and gamma rays are some of the most common types of radiation used in imaging tests. These rays let health care providers create images of the organs and tissues inside the body to help them make a diagnosis. Radiation can also change cells and sometimes destroy them. Exposure to too much radiation can cause health conditions, such as cancer. Which procedures involve radiation? Imaging tests that use radiation include: ??? X-rays. ??? Mammograms. ??? Bone density scans. ??? CT scans. ??? PET scans. ??? Fluoroscopy. In addition to imaging tests, there is a type of cancer treatment that uses radiation to destroy cancer cells (radiation therapy). How much radiation is safe? No known level of radiation is considered completely safe. Experts think that exposure to low dosesof radiation probably does not affect your health. Radiation exposure from most common medical procedures is low. Imaging tests are important tools to diagnose many treatable diseases and health conditions. Your health care provider will consider whether the benefits of the procedure are greater than the risks from radiation exposure. What are the risks of radiation exposure? Risks of radiation exposure depend on: ??? The test you have. Each test and each machine exposes you to a different amount of radiation. ??? Which area of your body is being tested. Some organs and tissues can be more sensitive to radiation than others. The more radiation you are exposed to, the greater the risk of cell damage and potential health problems. There is no set number of procedures involving radiation that is considered safe or unsafe. Exposure to extremely high levels of radiation, like in a nuclear accident, can eventually cause cancer. What are some questions to ask my health care provider? Talk with your health care provider about your other risk factors for cancer and how many previous procedures have exposed you to radiation. Discuss the benefits and risks of having additional procedures that expose you to radiation. If you are having a procedure that will expose you to radiation, ask your health care provider: ??? Do I need this procedure to diagnose my condition? Could a procedure that does not involve radiation be used instead? Is there a way to reduce my radiation exposure during the test? This information is not intended to replace advice given to you by your health care provider. Make sure you discuss any questions you have with your health care provider. Document Released: 11/19/2016 Document Revised: 07/05/2017 Document Reviewed: 11/19/2016 [email or web address] Interactive Patient Education ?? 2017 [employer] Note * Katherin CHAND, Adams Chavez: PERFORM, VERIFY, VERIFY Event Display: Report Authored Date: [id number] EXAMINATION: CT SCAN OF THE ABDOMEN AND PELVIS WITH INTRAVENOUS CONTRAST DATE OF EXAM: 06/02/2022 8:30 AM HISTORY: Abdominal pain COMPARISON: None. TECHNIQUE: CT examination of the abdomen and pelvis was performed following the intravenous administration of [address] dose lowering techniques were used, to include: automated exposure control, adjustment for patient size, and/or use of iterative reconstruction. FINDINGS: ABDOMEN/PELVIS: Lower Chest: There is a pectus excavatum appearance of the chest, partially visualized. Otherwise normal. Liver: Normal. Gallbladder/Biliary: Normal. Pancreas: Normal. Spleen: Normal. Adrenal Glands: Normal. Kidneys: Normal. GI Tract: There is diffuse clonic wall thickening involving the transverse, descending, and sigmoidcolon with mild hazy stranding surrounding the descending portion. Mesentery/Peritoneum: No ascites or pneumoperitoneum. As mentioned above there is mild hazy stranding surrounding the descending colon. Vasculature: Relatively mild atherosclerosis is scattered throughout. Lymph Nodes: Normal. Abdominal Wall: Normal. Bladder: Normal. Reproductive: Normal. Musculoskeletal: There are degenerative changes in the thoracolumbar spine. IMPRESSION: 1. Colitis involving transverse, descending and sigmoid colon worst within the descending portion. Presumably this is inflammatory or infectious with ischemic etiology not entirely excluded. 2. Other chronic and incidental findings as above. Thank you for the referral of this patient. This exam was interpreted by an [place] [employer] certified radiologist with subspecialty fellowship training. If there are any questions regarding this exam please feel free to contact a radiologist directly at [phone]. Slot 2 Electronically signed by: Adams Pandey 06/02/2022 8:53 AM Final Interpreted by: Adams Pandey MD Signed (Electronic Signature): 06/02/2022 8:53 am Signed by: Adams Pandey MD
--- NOTE | 2024-09-19 10:59 | PC.NURSE ---
Pt. is on sterilization technician at this time. Ramya Toure MD at bedside
--- NOTE | 2024-09-19 10:59 | PC.NURSE ---
20G peripheral IV inserted to RAC. Tolerated well. Good blood return and flushes well without pain or discomfort.
--- NOTE | 2024-09-19 11:00 | PC.NURSE ---
seo engineer Harik to bedside to draw ordered labs.
[2024-09-19 11:04] LABS: MANUAL DIFF FLAG NO
[2024-09-19] MEDS: Aspirin 81 MG TAB.CHEW 324 MG PO (11:06)
[2024-09-19 11:08] LABS: Basophils Percent Auto 0.6 % (0-2); Eosinophils Absolute Auto 0.3 X10*3/uL (0.0-0.4); Eosinophils Percent Auto 3.9 % (0-4); Hematocrit 38.6 % (37.0-47.0); Hemoglobin 13.2 g/dl (12.0-16.0); Imm Gran Abs Auto 0.02 X10*3/uL (0.00-0.03); Imm Gran Pct Auto 0.3 % (0.0-0.4); Lymphocytes Absolute Auto 1.8 X10*3/uL (1.2-4.9); Lymphocytes Percent Auto 27.9 % (20-40); Mean Corpuscular HGB Conc 34.2 g/dl (31.0-35.0); Mean Corpuscular Hemoglobin 31.4 pg (27.0-33.0); Mean Corpuscular Volume 91.9 fL (80.0-98.0); Mean Platelet Volume 9.9 fL (9.4-12.3); Monocytes Absolute Auto 0.3 X10*3/uL (0.1-1.2); Monocytes Percent Auto 5.1 % (2-11); Neutrophils Percent Auto 62.2 % (45-73); Platelet Count 216 X10*3/uL (160-400); Red Cell Distribution Width 12.3 % (11.0-16.0); White Blood Count 6.5 X10*3/uL (4.8-10.8)
[2024-09-19] MEDS: Nitroglycerin 0.4 MG TAB.SUBL SUBLINGUAL (11:08)
[2024-09-19 11:12] LABS: INTERNATIONAL NORM RATIO 0.9 (0.9-1.1)
[2024-09-19 11:15] LABS: Partial Thromboplastin Time 30.2 SEC (26.0-36.8)
--- NOTE | 2024-09-19 11:16 | PC.NURSE ---
Pt. reports relief of chest pain after Nitro. x1. VSS
--- NOTE | 2024-09-19 11:18 | ECG_ITS ---
Test Reason : CHEST Pain Blood Pressure : / mmHG Vent. Rate : 053 BPM Atrial Rate : 053 BPM P-R Int : 188 ms QRS Dur : 082 ms QT Int : 464 ms P-R-T Axes : 042 -33 016 degrees QTc Int : 435 ms Sinus bradycardia Left axis deviation Nonspecific T wave abnormality Abnormal ECG When compared with ECG of 19-SEP-2024 10:09, Nonspecific T wave abnormality, worse in Anterior leads Referred By: Abdulaziz Toure Electronically Signed By:RENÉ FARIA
[2024-09-19 11:19] LABS: D Dimer High Sensitivity < 150 NG/ML
[2024-09-19 11:21] LABS: Alanine Aminotransferase 23 U/L (0-31); Albumin Level 4.3 g/dL (3.5-5.0); Alkaline Phosphatase 113 U/L (39-117); Anion Gap 10 (12-20); Aspartate Amino Transferase 23 U/L (5-31); Bilirubin Total 0.4 mg/dL (0.0-1.0); Blood Urea Nitrogen 14 mg/dL (9-16); Calcium 10.5 mg/dL (8.4-10.2); Carbon Dioxide 27 mmol/L (22-29); Chloride 107 mmol/L (96-108); Estimated Glomerular Filt Rate > 60; Glucose Random 87 mg/dL (60-115); Lipase 51 U/L (8-78); Potassium 4.2 mmol/L (3.3-5.1); Sodium 140 mmol/L (135-145); Total Protein 7.3 g/dL (6.5-8.0)
[2024-09-19 11:26] LABS: B Type Natriuretic Peptide 10 pg/mL (<100)
[2024-09-19 11:31] LABS: Troponin-I High Sensitivity < 2.7 ng/L (<3.5-17.0)
[2024-09-19 11:43] LABS: TSH reflex Free T4 0.88 uIU/mL (0.32-4.0)
[2024-09-19] MEDS: Acetaminophen 325 MG TABLET 975 MG PO (13:17)
[2024-09-19] MEDS: Nitroglycerin 2 % Oint 1 GM Packet 1 INCH TRANSDERMA (13:36)
--- NOTE | 2024-09-19 13:37 | PC.NURSE ---
Pt. medicated per JAN.
--- NOTE | 2024-09-19 14:39 | PM.CNCAR ---
History of Present Illness History of Present Illness Date of Service: 09/19/24 Chief complaint: Angina Narrative: This is a cardiology consultation regarding chest pain. Patient is generally seen by Dr. Rivero. It seems that earlier this year, she underwent a regular ETT which was positive by EKG criteria following which, she underwent exercise stress echocardiogram which was felt to be negative for ischemia. She has had palpitations thought to be from atrial tachycardia. She was apparently on low-dose metoprolol but not taking it anymore. Otherwise, main reason why the patient is here is because of chest pain. For the last few days she has been noticing pains in the left side of the chest, near the breast area going up into the jaw/neck. That was concerning and hence she is here. This happen primarily at nighttime. No clear exertional patterns. Hence has got some typical and atypical characteristics. No documented coronary disease or myocardial infarction in the past. Review of Systems Review of Systems: Yes all other systems are reviewed and are negative Constitutional: Constitutional: Reports as per HPI and Reports no additional constitutional complaints Eyes: Eyes: Reports as per HPI and Denies no additional eye complaints ENT: Denies system reviewed and no additional complaints, except as documented and Reports as per HPI Cardiovascular: Cardiovascular: Reports as per HPI, Reports no additional cardiovascular complaints, Denies acrocyanosis, Denies cool extremities, Denies chest pain, Denies leg edema, Denies lightheadedness, Denies palpitations and Denies dyspnea Respiratory: Respiratory: Reports as per HPI, Denies no additional respiratory complaints and Denies dyspnea Gastrointestinal: Gastrointestinal: Reports as per HPI and Denies no additional gastrointestinal complaints Genitourinary: Genitourinary: Reports as per HPI Musculoskeletal: Musculoskeletal: Reports no additional musculoskeletal complaints and Reports as per HPI Integumentary/Breasts: Skin/Breast: Reports system reviewed and no additional complaints, except as docu Neurologic: Reports system reviewed and no additional complaints, except as documented and Reports as per HPI Psychiatric: Psychiatric: Reports no additional psychiatric complaints and Reports as per HPI Endocrine: Endocrine: Reports no additional endocrine complaints, Reports as per HPI and Denies palpitations Hematologic/Lymphatic: Hematologic/Lymphatic: Reports no additional hematologic/lymphatic complaints and Reports as per HPI Allergic/Immunologic: Allergic/Immunologic: Reports no additional allergic/immunologic complaints and Reports as per HPI [facility] Past Medical History Medical History (Updated 09/19/24 @ 15:46 by Flako Leo MD) False positive stress test Positive hepatitis C antibody test History of COVID-19 Asthma Lumbar disc disease History of kidney stones GERD (gastroesophageal reflux disease) Migraine Restless leg syndrome Hypercholesteremia Surgical History Surgical History Hx of hemorrhoidectomy Hx of colonoscopy History of left knee replacement Social History Social History Are you a primary patient care secretary to a significant other at home: No Do you presently have visiting nurse or other home services: No Patient Tobacco Use Status: Former Tobacco user Smoked in Last 30 Days: No Second Hand Smoke Exposure: No Use of substances other than those prescribed or required for medical reasons: No Advance Directives: No Advance Directives Information Provided: Yes Advance Directives Date on File: 08/27/20 Do you have a plan to hurt others: No Plan Meds Allergies Allergy/AdvReac Type Severity Reaction Status Date / Time Iyxlgjy-CBU-[id number] Reductase Allergy Intermediate Joint Pain Verified 09/19/24 10:22 Inhibitor diphenhydramine Allergy Agitated Verified 09/19/24 10:22 [From Benadryl] levofloxacin Allergy frozen Verified 09/19/24 10:22 shoulder Active Medications: Current Medications Nitroglycerin (Nitroglycerin 0.4 Mg Tab.Subl) 0.4 mg SUBLINGUAL [id number] PRN PRN Reason: Chest Pain Last Admin: 09/19/24 11:08 Dose: 0.4 mg Home Medications ?Medication ?Instructions ?Recorded ?Confirmed ?Last Taken ?Type albuterol sulfate 90 mcg/actuation 1 puff inhalation Q6H PRN Wheezing 12/03/20 09/19/24 Unknown History aerosol inhaler (Ventolin HFA) bccyntlihu-uemtqilufxswq-tltuxfps 1 tab PO Q6H PRN headache 12/03/20 09/19/24 Unknown History 50 mg-325 mg-40 mg tablet ropinirole 0.25 mg tablet 1 tab PO BEDTIME 12/03/20 09/19/24 09/18/24 History omeprazole 20 mg capsule,delayed 20 mg PO DAILY@0630 12/06/20 09/19/24 09/18/24 History release ondansetron HCl 8 mg tablet 1 tab PO Q8H PRN nausea/vomiting 12/11/22 09/19/24 Unknown History cholecalciferol (vitamin D3) 25 25 mcg PO DAILY 01/24/24 09/19/24 09/18/24 History mcg (1,000 unit) capsule ibuprofen 200 mg tablet 600 mg PO DAILY PRN Pain/Headache 09/19/24 09/19/24 Unknown History Physical Exam Vital Signs: Vital Signs: Last Vital Signs Temp 98.4 F 09/19/24 13:35 Pulse 55 09/19/24 13:36 Resp 14 09/19/24 13:35 BP 139/80 09/19/24 13:36 Pulse Ox 97 09/19/24 13:35 O2 Del Method Room Air 09/19/24 13:35 BMI result Body Mass Index 38.1 Const: General: comfortable and no acute distress Orientation/consciousness: patient oriented x3 HEENT: Other: Unremarkable Head: Yes normal to inspection Neck: Neck: Yes normal visual inspection Chest: Chest palpation & inspection: normal inspection of the chest Resp: Auscultation: clear to auscultation bilaterally Cardio: Palpation: normal PMI Heart sounds: S1 normal heart sound present, S2 normal heart sound present, no gallops, no murmurs and no rubs GI: Palpation (GI): Soft to palpation Back/Spine/Pelvis: Other: unremarkable Skin: General skin exam: no rashes or lesions noted Neuro: General: patient oriented x3 Extrem: General: Yes normal to inspection Psych: Mental Status: mental status grossly normal Objective Labs and Meds 09/19/24 10:58 09/19/24 10:58 Lab results: Laboratory Results - last 24 hr 09/19/24 10:58 WBC 6.5 RBC 4.20 Hgb 13.2 Hct 38.6 MCV 91.9 MCH 31.4 MCHC 34.2 RDW 12.3 Plt Count 216 MPV 9.9 Immature Gran % (Auto) 0.3 Neut % (Auto) 62.2 Lymph % (Auto) 27.9 [place] % (Auto) 5.1 Eos % (Auto) 3.9 Baso % (Auto) 0.6 Lymph # (Auto) 1.8 [place] # (Auto) 0.3 Eos # (Auto) 0.3 Baso # (Auto) 0.0 Abs Immat Gran (auto) 0.02 Absolute Neuts (auto) 4.0 Absolute Nucleated RBC 0.000 Nucleated RBC % (auto) 0.0 PT 11.0 INR 0.9 APTT 30.2 D-Dimer High Sensitivty < 150 Sodium 140 Potassium 4.2 Chloride 107 Carbon Dioxide 27 Anion Gap 10 L BUN 14 Creatinine 0.79 Estim Creat Clear Calc 74.0 Estimated GFR > 60 Random Glucose 87 Calcium 10.5 H Magnesium 2.0 Total Bilirubin 0.4 AST 23 ALT 23 Alkaline Phosphatase 113 Troponin I High Sens < 2.7 B-Natriuretic Peptide 10 Total Protein 7.3 Albumin 4.3 Lipase 51 TSH 0.88 ECG Interpretation: EKG shows underlying sinus bradycardia at 56/Min; leftward axis; nonspecific ST-T changes. Normal RI and corrected QT. Assessment and Plan (1) Precordial chest pain: Status: Acute Plan Chest pain with atypical/typical components. EKGs unremarkable. Cardiac biomarkers including high sensitivity troponins and cardiac BNP within normal limits. Earlier this year, she underwent ETT which apparently had EKG changes but no associated symptoms following which she underwent an exercise stress echocardiogram. In that study, suboptimal images but no overt findings. Otherwise, history of untreated dyslipidemia. Discussed about options for further workup including perfusion imaging, coronary CTA as well as cardiac catheterization. With regard to perfusion imaging, there is a technetium shortage and hence will not be able to do for the near future. Coronary CTA has several months of wait time. After that, we decided on pursuing cardiac catheterization and we can arrange that at the earliest opportunity. Plan discussed with patient as well as and they agree. Procedures Date of Service Date of Service: 09/19/24
[2024-09-19 14:46] LABS: Troponin-I High Sensitivity < 2.7 ng/L (<3.5-17.0)
--- NOTE | 2024-09-19 14:55 | PHA.MEDREC ---
Addendum entered by Mikala Bartlett RPh 09/19/24 15:08: reviewed by [facility]. Original Note: Pharmacy Consult ? Medication Reconciliation Pharmacy has completed the medication reconciliation. Confirmed medications with patient. Patient confirmed she she still has Eweeegqrro-hrjizljxaeuvb-kcfixylz and takes it as needed for headaches. She also confirmed she never started the Repatha injection once every 2 weeks due to her insurance denying it. She confirmed her Dr had her ween off the Metoprolol succinate 25mg tabs during the Summer and she has not had it in a few months she states. She confirmed she finished the Rizatriptan 10mg tabs months ago . She states she took her medications yesterday.
--- NOTE | 2024-09-19 15:32 | PM.IMHP ---
History of Present Illness Date of Service: 09/19/24 Attending physician on admission: Yaw Brown Chief Complaint: chest pain This is a 69 year old female with history of intermittent atrial tachycardia, HLD, headaches who presents to the emergency department with chest pain. Patient reports multiple episodes of chest pain which woke her up from sleep. She reports for the last 3 days she has been woken up early in the morning with these symptoms. The pain is described as poker going through the left side of her chest with radiation to her left axilla and left jaw. There is no associated shortness of breath, nausea or diaphoresis. She does report intermittent palpitations. In the emergency department she received a dose of nitroglycerin which improved her symptoms. In the past she has undergone a regular treadmill stress test which was positive by EKG criteria and therefore underwent a stress echocardiogram which was negative for ischemia. In the ED, EKG showed nonspecific changes. Cardiac enzymes were negative x2. Review of Systems Review of Systems: Yes all other systems are reviewed and are negative Constitutional: Constitutional: Denies chills and Denies fever(s) ENT: Denies dizziness Cardiovascular: Cardiovascular: Reports chest pain and Denies dyspnea Respiratory: Respiratory: Denies cough and Denies dyspnea Gastrointestinal: Gastrointestinal: Denies abdominal pain, Denies nausea and Denies vomiting Neurologic: Denies dizziness [facility] Medical History False positive stress test Positive hepatitis C antibody test History of COVID-19 Asthma Lumbar disc disease History of kidney stones GERD (gastroesophageal reflux disease) Migraine Restless leg syndrome Hypercholesteremia Surgical History Hx of hemorrhoidectomy Hx of colonoscopy History of left knee replacement Social History Are you a primary personal care worker to a significant other at home: No Do you presently have visiting nurse or other home services: No Patient Tobacco Use Status: Former Tobacco user Second Hand Smoke Exposure: No Advance Directives Date on File: 08/27/20 Meds Allergies Allergy/AdvReac Type Severity Reaction Status Date / Time [id number] Reductase Allergy Intermediate Joint Pain Verified 09/19/24 10:22 Inhibitor diphenhydramine Allergy Agitated Verified 09/19/24 10:22 [From [place]] levofloxacin Allergy frozen Verified 09/19/24 10:22 shoulder Active Medications: Current Medications Acetaminophen (Acetaminophen 325 Mg Tablet) 650 mg PO Q6H PRN PRN Reason: Pain, Mild (Pain Scale 1-3), fever or headache Acetaminophen/Butalbital/Caffeine (Butalb/Acetamin/Caff 50/325/40 Tablet) 1 tab PO Q6H PRN PRN Reason: headache Albuterol Sulfate (Albuterol Sulfate 90 Mcg 8 Gm Inhaler) 1 puff INHALE Q6H PRN PRN Reason: Wheezing Aspirin (Aspirin Enteric Coated 81 Mg Tablet.) 81 mg PO DAILY [facility] Calcium Carbonate (Calcium Carbonate 750 Mg Tab.Chew) 750 mg PO Q4H PRN PRN Reason: Heartburn Enoxaparin Sodium (Enoxaparin Sodium 40 Mg/0.4 Ml Syringe) 40 mg SUBCUT Q24H [facility] Lorazepam (Lorazepam 0.5 Mg Tablet) 0.5 mg PO BEDTIME PRN PRN Reason: insomnia Nitroglycerin (Nitroglycerin 0.4 Mg Tab.Subl) 0.4 mg SUBLINGUAL Q5MX3 PRN PRN Reason: Chest Pain Last Admin: 09/19/24 11:08 Dose: 0.4 mg Omeprazole (Omeprazole 20 Mg Capsule.) 20 mg PO DAILY@0630 [facility] Ondansetron HCl (Ondansetron Hcl 4 Mg/2 Ml Vial) 4 mg IVPUSH Q8H PRN PRN Reason: Nausea and Vomiting Ropinirole HCl (Ropinirole Hcl 0.25 Mg Tablet) 0.25 mg PO BEDTIME [facility] Sodium Chloride (0.9 % Sodium Chloride Flush 3 Ml Syringe) 3 ml IVFLUSH QSHIFT [facility] Vitamin D (Cholecalciferol (Vitamin D3) 25 Mcg Tablet) 25 mcg PO DAILY [facility] Home Medications ?Medication ?Instructions ?Recorded ?Confirmed ?Last Taken ?Type albuterol sulfate 90 mcg/actuation 1 puff inhalation Q6H PRN Wheezing 12/03/20 09/19/24 Unknown History aerosol inhaler (Ventolin HFA) [id number]-[id number] 1 tab PO Q6H PRN headache 12/03/20 09/19/24 Unknown History 50 mg-325 mg-40 mg tablet ropinirole 0.25 mg tablet 1 tab PO BEDTIME 12/03/20 09/19/24 09/18/24 History omeprazole 20 mg capsule,delayed 20 mg PO DAILY@0630 12/06/20 09/19/24 09/18/24 History release ondansetron HCl 8 mg tablet 1 tab PO Q8H PRN nausea/vomiting 12/11/22 09/19/24 Unknown History cholecalciferol (vitamin D3) 25 25 mcg PO DAILY 01/24/24 09/19/24 09/18/24 History mcg (1,000 unit) capsule ibuprofen 200 mg tablet 600 mg PO DAILY PRN Pain/Headache 09/19/24 09/19/24 Unknown History Physical Exam Vital Signs and Narrative: Vital Signs: Last Vital Signs Temp 98.4 F 09/19/24 13:35 Pulse 55 09/19/24 13:36 Resp 14 09/19/24 13:35 BP 139/80 09/19/24 13:36 Pulse Ox 97 09/19/24 13:35 O2 Del Method Room Air 09/19/24 13:35 BMI result Body Mass Index 38.1 Const: General: cooperative, comfortable, no acute distress, alert and awake Nutritional Appearance: average body habitus Orientation/consciousness: patient oriented x3 Resp: Effort & Inspection: normal respiratory effort, able to speak in complete sentences, no respiratory distress and no use of accessory muscles Cardio: Rate: regular rate GI: Inspection: No distended Palpation (GI): Soft to palpation and nontender Neuro: General: patient oriented x3, moves all extremities and CN's II-XI intact bilaterally Extrem: General: Yes no pedal edema Results Labs 09/19/24 10:58 09/19/24 10:58 Labs: Laboratory Results - last 24 hr 09/19/24 09/19/24 10:58 14:14 MCV 91.9 MCH 31.4 MCHC 34.2 RDW 12.3 Plt Count 216 MPV 9.9 Immature Gran % (Auto) 0.3 Neut % (Auto) 62.2 Lymph % (Auto) 27.9 [place] % (Auto) 5.1 Eos % (Auto) 3.9 Baso % (Auto) 0.6 Lymph # (Auto) 1.8 [place] # (Auto) 0.3 Eos # (Auto) 0.3 Baso # (Auto) 0.0 Abs Immat Gran (auto) 0.02 Absolute Neuts (auto) 4.0 Absolute Nucleated RBC 0.000 Nucleated RBC % (auto) 0.0 PT 11.0 INR 0.9 APTT 30.2 D-Dimer High Sensitivty < 150 Anion Gap 10 L Estim Creat Clear Calc 74.0 Estimated GFR > 60 Random Glucose 87 Calcium 10.5 H Magnesium 2.0 Total Bilirubin 0.4 AST 23 ALT 23 Alkaline Phosphatase 113 Troponin I High Sens < 2.7 < 2.7 B-Natriuretic Peptide 10 Total Protein 7.3 Albumin 4.3 Lipase 51 TSH 0.88 Imaging Radiologist's Impressions: Impressions Chest X-Ray 09/19/24 10:45 IMPRESSION: No active disease. No interval change. Electronically signed by: Kulwinder Luis MD 09/19/2024 03:08 PM EDT RP Assessment and Plan (1) Precordial chest pain: Status: Acute Plan This is a 69-year-old female with history of paroxysmal atrial tachycardia, asthma, migraines, restless leg syndrome, hyperlipidemia who presents to the emergency department with chest pain chest pain nonspecific EKG changes. trop flat x2 but symptoms concerning for cardiac etiology start ASA; no statin due to documented allergy consideration for heparin drip if further chest pain echo pending cardiology consult paroxysmal atrial tachycardia was previously taking toprol xl, no longer taking tele monitoring HLD allergy to statin followed by cardiology with consideration for starting PCSK9 inhibitor RLS continue ropinirole dvt ppx - lovenox code status - full code Patient will need close cardiac monitoring and possible escalation of care and thus expected to need 2 day stay in the hospital Quality Stroke Does the patient have a stroke diagnosis?: No VTE Prior VTE?: No VTE Risk Level:: Medical - moderate - high VTE Device Contraindication: N/A - Device Ordered VTE Drug Contraindication: N/A - Med Ordered
--- NOTE | 2024-09-19 15:46 | PC.NURSE ---
Pt. refusing Lovenox injection at this time.
--- NOTE | 2024-09-19 16:00 | CA_ITS ---
Transthoracic Echocardiogram Patient (Last, First, Middle): Helene Alvarez, Gender: Female Date of : 1955 Age: 69 Procedure Date: 09/19/2024 Procedure Type: Transthoracic Echocardiogram Location: ER Height: 157.48 cm Weight: 94.35 kg BSA: 1.94 m2 Heart Rate: 52 bpm BP: 139 / 80 mmHg Finish Photographer: Referring MD: Abdulaziz Toure MD Symptoms: Chest pain evaluate for wall motion abnormalities Study Quality: Fair ECG Rhythm: Bradycardia Conclusions: - The left ventricular systolic function is normal. The visually estimated ejection fraction is between 60-65%. - No obvious valvular pathology seen on this study. Findings Left Ventricle Normal left ventricular cavity size. There is mildly increased left ventricular wall thickness. The left ventricular systolic function is normal. The visually estimated ejection fraction is between 60-65%. There is no evidence of regional wall motion abnormalities. Diastolic function is normal for age. Right Ventricle Normal right ventricular cavity size and systolic function. Atria Both atria are normal in size. Aortic Valve The aortic valve was not well visualized. There is no aortic valve stenosis. There is no aortic valve regurgitation. Mitral Valve The mitral valve appears normal. There is no mitral valve regurgitation. There is no mitral valve stenosis. Pulmonic Valve The pulmonic valve is likely normal. Tricuspid Valve There is trace tricuspid valve regurgitation. Tricuspid regurgitation envelope is inadequate for calculation of right ventricular systolic pressure. Great Vessels The asc aorta is normal in size. Venous The inferior vena cava is normal in size and collapses greater than 50% with inspiration. Pericardium/Pleural There is no evidence of pericardial effusion. Prior Study Comparison No significant change compared to prior study dated: 01/15/2024. Recommendations, Care & Conclusions No obvious valvular pathology seen on this study. Measurements 2D Linear Measurements IVSd: 1.33 0.6-0.9/0.6-1.0 cm LVIDd: 3.88 3.9-5.3/4.2-5.9 cm LVIDd Index: 2.00 2.4-3.2/2.2-3.1 cm/m2 LVIDs: 2.79 2.0-3.6 cm LVPWd: 1.26 0.7-1.1 cm LA Diam: 2.70 2.7-3.8/3.0-4.0 cm LAIDs Index: 1.39 1.5-2.3 cm/m2 LV Mass: 220.93 67-162/88-224 g LV Mass Index: 113.88 43-95/49-115 g/m2 LVOT Diam: 2.20 3.0+(-)1.3 cm Mitral Valve MV Pk E: 0.72 MV PK A: 0.70 MV Decel Time: 311.00 E/A: 1.00 E'Lateral: 8.49 E'Medial: 5.55 E/E' Med: 12.90 E/E' Lat: 8.40 PHT: 91.00 MVA PHT: 2.42 Decel Spencer: 2.30 Aortic Valve AoV Pk Mohsen: 1.41 AoV Pk Grad: 8.00 LVOT LVOT Pk Mohsen: 1.04 LVOT Mn Mohsen: 0.70 LVOT VTI: 0.28 LVOT Pk Grad: 4.00 LVOT Mn Grad: 2.00 LVOT Diam: 2.20 LVOT Area: 3.80 Diastolic Function MV Pk E: 0.72 MV Pk A: 0.70 E/A: 1.00 E'Medial: 5.55 E/E' Med: 12.90 E' Laterial: 8.49 E/E' Lat: 8.40 Right Ventricle TAPSE (mm): 25.70 TVS' Mohsen: 9.25 Tricuspid Valve TR Pk Mohsen: 2.24 TR Pk Grad: 20.00 Great Vessels Aorta Sinus of Valsalva: 3.50 2.0-3.5 cm Ao Asc: 3.40 2.1-3.4 cm Pulmonary Valve PV Pk Mohsen: 0.72 Peak PV Grad: 2.00 Updated in Other Vendor System with Status of Final Flako eLo MD electronically signed on 09/19/2024 5:10:08 PM with status of Final
[2024-09-19] MEDS: Butalb/Acetamin/Caff 50/325/40 TABLET 1 TAB PO (16:43)
[2024-09-19] MEDS: rOPINIRole HCL 0.25 MG TABLET PO (19:59)
[2024-09-19] MEDS: 0.9 % Sodium Chloride Flush 3 ML SYRINGE IVFLUSH (20:05)
[2024-09-19] MEDS: LORazepam 0.5 MG TABLET PO (21:46)
[2024-09-20] VITALS: BP 168/86; PULSE 55; RESP 12; TEMP 36.1; O2SAT 99
[2024-09-20 04:00] VITALS: BP 146/67; PULSE 55; RESP 12; TEMP 36; O2SAT 97
[2024-09-20] MEDS: Omeprazole 20 MG CAPSULE.DR PO (06:00)
[2024-09-20 07:50] VITALS: BP 154/77; PULSE 56; RESP 18; TEMP 36.5; O2SAT 98
[2024-09-20] MEDS: Cholecalciferol (Vitamin D3) 25 MCG TABLET PO (08:40)
[2024-09-20] MEDS: Aspirin Enteric Coated 81 MG TABLET.DR PO (08:40)
[2024-09-20] MEDS: 0.9 % Sodium Chloride Flush 3 ML SYRINGE IVFLUSH (08:43)
--- NOTE | 2024-09-20 09:24 | PM.PNCARD ---
Subjective Subjective Date of Service: 09/20/24 Interval history: Seen in follow up. She states she felt fine last night and no new complaints. Review of Systems Review of Systems Yes all other systems are reviewed and are negative Constitutional: Reports as per HPI and Reports no additional constitutional complaints Eyes: Reports as per HPI and Denies no additional eye complaints Denies system reviewed and no additional complaints, except as documented and Reports as per HPI Cardiovascular: Reports as per HPI, Reports no additional cardiovascular complaints, Denies acrocyanosis, Denies cool extremities, Denies chest pain, Denies leg edema, Denies lightheadedness, Denies palpitations and Denies dyspnea Respiratory: Reports as per HPI, Denies no additional respiratory complaints and Denies dyspnea Gastrointestinal: Reports as per HPI and Denies no additional gastrointestinal complaints Genitourinary: Reports as per HPI Musculoskeletal: Reports no additional musculoskeletal complaints and Reports as per HPI Skin/Breast: Reports system reviewed and no additional complaints, except as docu Reports system reviewed and no additional complaints, except as documented and Reports as per HPI Psychiatric: Reports no additional psychiatric complaints and Reports as per HPI Endocrine: Reports no additional endocrine complaints, Reports as per HPI and Denies palpitations Hematologic/Lymphatic: Reports no additional hematologic/lymphatic complaints and Reports as per HPI Allergic/Immunologic: Reports no additional allergic/immunologic complaints and Reports as per HPI Physical Exam Vital Signs: Last Vital Signs Temp 97.7 F 09/20/24 07:50 Pulse 56 09/20/24 07:50 Resp 18 09/20/24 07:50 BP 154/77 H 09/20/24 07:50 Pulse Ox 98 09/20/24 07:50 O2 Del Method Room Air 09/20/24 07:50 BMI result Body Mass Index 38.1 Const General: comfortable and no acute distress Orientation/consciousness: patient oriented x3 HEENT Other: Unremarkable Head: Yes normal to inspection Neck Neck: Yes normal visual inspection Chest Chest palpation & inspection: normal inspection of the chest Resp Auscultation: clear to auscultation bilaterally Cardio Palpation: normal PMI Heart sounds: S1 normal heart sound present, S2 normal heart sound present, no gallops, no murmurs and no rubs GI Palpation (GI): Soft to palpation Back/Spine/Pelvis Other: unremarkable Skin General skin exam: no rashes or lesions noted Neuro General: patient oriented x3 Extrem General: Yes normal to inspection Psych Mental Status: mental status grossly normal Objective Labs and Meds 09/19/24 10:58 09/19/24 10:58 Lab results: Laboratory Results - last 24 hr 09/19/24 09/19/24 10:58 14:14 WBC 6.5 RBC 4.20 Hgb 13.2 Hct 38.6 MCV 91.9 MCH 31.4 MCHC 34.2 RDW 12.3 Plt Count 216 MPV 9.9 Immature Gran % (Auto) 0.3 Neut % (Auto) 62.2 Lymph % (Auto) 27.9 [place] % (Auto) 5.1 Eos % (Auto) 3.9 Baso % (Auto) 0.6 Lymph # (Auto) 1.8 [place] # (Auto) 0.3 Eos # (Auto) 0.3 Baso # (Auto) 0.0 Abs Immat Gran (auto) 0.02 Absolute Neuts (auto) 4.0 Absolute Nucleated RBC 0.000 Nucleated RBC % (auto) 0.0 PT 11.0 INR 0.9 APTT 30.2 D-Dimer High Sensitivty < 150 Sodium 140 Potassium 4.2 Chloride 107 Carbon Dioxide 27 Anion Gap 10 L BUN 14 Creatinine 0.79 Estim Creat Clear Calc 74.0 Estimated GFR > 60 Random Glucose 87 Calcium 10.5 H Magnesium 2.0 Total Bilirubin 0.4 AST 23 ALT 23 Alkaline Phosphatase 113 Troponin I High Sens < 2.7 < 2.7 B-Natriuretic Peptide 10 Total Protein 7.3 Albumin 4.3 Lipase 51 TSH 0.88 Imaging Radiologist's impression: Impressions Chest X-Ray 09/19/24 10:45 IMPRESSION: No active disease. No interval change. Electronically signed by: Kulwinder Luis MD 09/19/2024 03:08 PM EDT Progress Note: A&P Assessment and plan (1) Precordial chest pain: Status: Acute (2) Atrial tachycardia: Status: Acute Plan Chest pain with atypical/typical components; palpitations. EKGs unremarkable. Cardiac biomarkers including high sensitivity troponins and cardiac BNP within normal limits. Echocardiogram not showing any wall motion abnormalities. Telemetry shows very brief runs of possibly atrial tachycardia but lasting only seconds overnight. Earlier this year, she underwent ETT which apparently had EKG changes but no associated symptoms following which she underwent an exercise stress echocardiogram. In that study, suboptimal images but no overt findings. Otherwise, history of untreated dyslipidemia. Possible hypertension. With regard to the jaw pain, not entirely clear as to etiology. Atrial tachycardia should not be causing that. After discussing several options, we decided on a diagnostic catheterization which is scheduled for coming Sunday. She is agreeable with that and also discussed with . In the interim, can resume metoprolol. Outpatient sleep study is pending. Outpatient monitoring for arrhythmias. Time Spent With Patient Time: Total time managing care of this patient today ____ minutes. Progress Note: Quality Stroke Does the patient have a stroke diagnosis?: No Procedures Date of Service Date of Service: 09/20/24
--- NOTE | 2024-09-20 10:23 | P.HPHOSP_ITS ---
[facility] Medical History False positive stress test Positive hepatitis C antibody test History of COVID-19 Asthma Lumbar disc disease History of kidney stones GERD (gastroesophageal reflux disease) Migraine Restless leg syndrome Hypercholesteremia Surgical History Hx of hemorrhoidectomy Hx of colonoscopy History of left knee replacement Social History Household Members: Family Housing: House Are you a primary rn managed care to a significant other at home: No Do you presently have visiting nurse or other home services: No Patient Tobacco Use Status: Former Tobacco user Second Hand Smoke Exposure: No Advance Directives Date on File: 08/27/20 Meds Allergies Allergy/AdvReac Type Severity Reaction Status Date / Time [id number] Reductase Allergy Intermediate Joint Pain Verified 09/19/24 10:22 Inhibitor diphenhydramine Allergy Agitated Verified 09/19/24 10:22 [From Benadryl] levofloxacin Allergy frozen Verified 09/19/24 10:22 shoulder Active Medications: Current Medications Acetaminophen (Acetaminophen 325 Mg Tablet) 650 mg PO Q6H PRN PRN Reason: Pain, Mild (Pain Scale 1-3), fever or headache Acetaminophen/Butalbital/Caffeine (Butalb/Acetamin/Caff 50/325/40 Tablet) 1 tab PO Q6H PRN PRN Reason: headache Albuterol Sulfate (Albuterol Sulfate 90 Mcg 8 Gm Inhaler) 1 puff INHALE Q6H PRN PRN Reason: Wheezing Aspirin (Aspirin Enteric Coated 81 Mg Tablet.Dr) 81 mg PO DAILY [facility] Last Admin: 09/20/24 08:40 Dose: 81 mg Calcium Carbonate (Calcium Carbonate 750 Mg Tab.Chew) 750 mg PO Q4H PRN PRN Reason: Heartburn Lorazepam (Lorazepam 0.5 Mg Tablet) 0.5 mg PO BEDTIME PRN PRN Reason: insomnia Last Admin: 09/19/24 21:46 Dose: 0.5 mg Nitroglycerin (Nitroglycerin 0.4 Mg Tab.Subl) 0.4 mg SUBLINGUAL Q5MX3 PRN PRN Reason: Chest Pain Last Admin: 09/19/24 11:08 Dose: 0.4 mg Omeprazole (Omeprazole 20 Mg Capsule.) 20 mg PO DAILY@0630 [facility] Last Admin: 09/20/24 06:00 Dose: 20 mg Ondansetron HCl (Ondansetron Hcl 4 Mg/2 Ml Vial) 4 mg IVPUSH Q8H PRN PRN Reason: Nausea and Vomiting Ropinirole HCl (Ropinirole Hcl 0.25 Mg Tablet) 0.25 mg PO BEDTIME [facility] Last Admin: 09/19/24 19:59 Dose: 0.25 mg Sodium Chloride (0.9 % Sodium Chloride Flush 3 Ml Syringe) 3 ml IVFLUSH QSHIFT [facility] Last Admin: 09/20/24 08:43 Dose: 3 ml Vitamin D (Cholecalciferol (Vitamin D3) 25 Mcg Tablet) 25 mcg PO DAILY [facility] Last Admin: 09/20/24 08:40 Dose: 25 mcg Home Medications ?Medication ?Instructions ?Recorded ?Confirmed ?Last Taken ?Type albuterol sulfate 90 mcg/actuation 1 puff inhalation Q6H PRN Wheezing 12/03/20 09/19/24 Unknown History aerosol inhaler (Ventolin HFA) mmuasqektp-frdaajumrcbus-lyokqyzz 1 tab PO Q6H PRN headache 12/03/20 09/19/24 Unknown History 50 mg-325 mg-40 mg tablet ropinirole 0.25 mg tablet 1 tab PO BEDTIME 12/03/20 09/19/24 09/18/24 History omeprazole 20 mg capsule,delayed 20 mg PO DAILY@0630 12/06/20 09/19/24 09/18/24 History release ondansetron HCl 8 mg tablet 1 tab PO Q8H PRN nausea/vomiting 12/11/22 09/19/24 Unknown History cholecalciferol (vitamin D3) 25 25 mcg PO DAILY 01/24/24 09/19/24 09/18/24 History mcg (1,000 unit) capsule ibuprofen 200 mg tablet 600 mg PO DAILY PRN Pain/Headache 09/19/24 09/19/24 Unknown History Physical Exam 2 Vital Signs and Narrative: Vital Signs: Last Vital Signs Temp 97.7 F 09/20/24 07:50 Pulse 56 09/20/24 07:50 Resp 18 09/20/24 07:50 BP 154/77 H 09/20/24 07:50 Pulse Ox 98 09/20/24 07:50 O2 Del Method Room Air 09/20/24 07:50 BMI result Body Mass Index 38.1 Results Labs 09/19/24 10:58 09/19/24 10:58 Labs: Laboratory Results - last 24 hr 09/19/24 09/19/24 10:58 14:14 MCV 91.9 MCH 31.4 MCHC 34.2 RDW 12.3 Plt Count 216 MPV 9.9 Immature Gran % (Auto) 0.3 Neut % (Auto) 62.2 Lymph % (Auto) 27.9 [place] % (Auto) 5.1 Eos % (Auto) 3.9 Baso % (Auto) 0.6 Lymph # (Auto) 1.8 [place] # (Auto) 0.3 Eos # (Auto) 0.3 Baso # (Auto) 0.0 Abs Immat Gran (auto) 0.02 Absolute Neuts (auto) 4.0 Absolute Nucleated RBC 0.000 Nucleated RBC % (auto) 0.0 PT 11.0 INR 0.9 APTT 30.2 D-Dimer High Sensitivty < 150 Anion Gap 10 L Estim Creat Clear Calc 74.0 Estimated GFR > 60 Random Glucose 87 Calcium 10.5 H Magnesium 2.0 Total Bilirubin 0.4 AST 23 ALT 23 Alkaline Phosphatase 113 Troponin I High Sens < 2.7 < 2.7 B-Natriuretic Peptide 10 Total Protein 7.3 Albumin 4.3 Lipase 51 TSH 0.88 Imaging Radiologist's Impressions: Impressions Chest X-Ray 09/19/24 10:45 IMPRESSION: No active disease. No interval change. Electronically signed by: Kulwinder Luis MD 09/19/2024 03:08 PM EDT Quality Stroke Does the patient have a stroke diagnosis?: No VTE Prior VTE?: No VTE Risk Level:: Medical - moderate - high VTE Device Contraindication: N/A - Device Ordered VTE Drug Contraindication: N/A - Med Ordered
--- NOTE | 2024-09-20 11:13 | PM.DS ---
DS: Providers Provider Date of Service: 09/20/24 Date of admission: 09/19/24 15:15 Date of discharge: 09/20/24 Primary care physician: Baldo Flaherty MD Consults: 09/19/24 13:56 Consult to Cardiology Stat Consulting Provider: [facility] [place] Reason for consultation: Morning chest pain x3 associated with tachycardia/palpitations, evaluate fo Has provider been notified: Yes Attending physician on discharge: Samuel Trujillo Discharging clinician: Sofía Spring DS: Diagnosis Discharge Diagnosis (1) Precordial chest pain: Status: Acute (2) Atrial tachycardia: Status: Acute DS: Summary Hospital Course Hospital Course: From H&P on the day of admission This is a 69 year old female with history of intermittent atrial tachycardia, HLD, headaches who presents to the emergency department with chest pain. Patient reports multiple episodes of chest pain which woke her up from sleep. She reports for the last 3 days she has been woken up early in the morning with these symptoms. The pain is described as poker going through the left side of her chest with radiation to her left axilla and left jaw. There is no associated shortness of breath, nausea or diaphoresis. She does report intermittent palpitations. In the emergency department she received a dose of nitroglycerin which improved her symptoms. In the past she has undergone a regular treadmill stress test which was positive by EKG criteria and therefore underwent a stress echocardiogram which was negative for ischemia. In the ED, EKG showed nonspecific changes. Cardiac enzymes were negative x2. Chest pain. EKG with nonspecific changes, cardiac biomarkers within normal limits. Echocardiogram with no wall motion abnormality, no obvious valvular pathology and ejection fraction 60-65%. On telemetry she had very brief runs of possible atrial tachycardia but not likely cause of symptoms. No further chest pain during hospitalization. Seen by Cardiology, plan to resume Toprol-XL, and further outpatient testing including cardiac catheterization which is scheduled for SundaySeptember 23. Encouraged to return to the ED with any new or worsening symptoms. Time Attestation Discharge Coordination Time (in mins): 35 Quality: Safe Use of Opioids Does Pt have an Active Cancer Diagnosis on the Problem List?: No Quality: Stroke Does the patient have a stroke diagnosis?: No Physical Exam Vital Signs: Vital Signs: Last Vital Signs Temp 97.7 F 09/20/24 07:50 Pulse 56 09/20/24 07:50 Resp 18 09/20/24 07:50 BP 154/77 H 09/20/24 07:50 Pulse Ox 98 09/20/24 07:50 O2 Del Method Room Air 09/20/24 07:50 BMI result Body Mass Index 38.1 Const: General: cooperative, comfortable, no acute distress, alert and awake Nutritional Appearance: average body habitus Orientation/consciousness: patient oriented x3 Resp: Effort & Inspection: normal respiratory effort, able to speak in complete sentences, no respiratory distress and no use of accessory muscles Cardio: Rate: regular rate GI: Inspection: No distended Palpation (GI): Soft to palpation and nontender Neuro: General: patient oriented x3, moves all extremities and CN's II-XI intact bilaterally Extrem: General: Yes no pedal edema DS: Data Data Completed and Pending Labs on day of discharge: Laboratory Results - last 24 hr 09/19/24 09/19/24 10:58 14:14 PT 11.0 INR 0.9 APTT 30.2 D-Dimer High Sensitivty < 150 Sodium 140 Potassium 4.2 Chloride 107 Carbon Dioxide 27 Anion Gap 10 L BUN 14 Creatinine 0.79 Estim Creat Clear Calc 74.0 Estimated GFR > 60 Random Glucose 87 Calcium 10.5 H Magnesium 2.0 Total Bilirubin 0.4 AST 23 ALT 23 Alkaline Phosphatase 113 Troponin I High Sens < 2.7 < 2.7 B-Natriuretic Peptide 10 Total Protein 7.3 Albumin 4.3 Lipase 51 TSH 0.88 Discharge Plan Discharge Anticipated Discharge Date/Time: 09/20/24 10:14 Patient Disposition: Home, Self-Care Discharge Diagnosis: chest pain atrial tachycardia Referrals: Baldo Flaherty MD [Primary Care Provider] - 1 Week Discharge Medications: New metoprolol succinate [Toprol XL] 25 mg tablet extended release 24 hr 25 mg PO DAILY 90 Days Qty: 90 0RF lorazepam 0.5 mg tablet 0.5 mg PO BEDTIME PRN (Reason: sleep) Qty: 14 0RF Continued rzzcqlfacj-vdxapsicuujmj-fwfw 50-325-40 mg tablet 1 tab PO Q6H PRN (Reason: headache) ropinirole 0.25 mg tablet 1 tab PO BEDTIME albuterol sulfate [Ventolin HFA] 90 mcg/actuation HFA aerosol inhaler 1 puff inhalation Q6H PRN (Reason: Wheezing) omeprazole 20 mg Capsule,Delayed Release(Dr/Ec) 20 mg PO DAILY@0630 ondansetron HCl 8 mg tablet 1 tab PO Q8H PRN (Reason: nausea/vomiting) ibuprofen 200 mg Tablet 600 mg PO DAILY PRN (Reason: Pain/Headache) cholecalciferol (vitamin D3) 25 mcg (1,000 unit) capsule 25 mcg PO DAILY Discharge Orders: Discharge Order (Routine); Ordered 09/20/24 Ordered By: Sofía Spring Activity on Discharge: As tolerated Stand Alone Forms: Patient Portal Discharge page Print Language: Tajik Care Plan Goals: see below Health Concerns: chest pain atrial tachycardia Plan of Treatment: resume taking Toprol XL 25 mg once daily outpatient follow up with cardiology and cardiac catheterization on Sunday as scheduled return to the ED with new or worsening chest pain Assessment: see discharge summary
--- NOTE | 2024-09-20 12:04 | MHC.CM.PN ---
PT REPORTS SHE LIVES WITH HER AND IS INDEPENDENT WITH CARE SHE HAS NO DME AND NO SERVICES COPY OF HCP REQUESTED PCP: ERIC PARSONS PT WILL DC HOME TODAY WITH NO SERVICES VIA FAMILY TRANSPORT
== END 2024-09-20 10:45 | disposition home or self-care (01) | DRG 203 ==
LOC: HO.ED 10:28 → HO.EDOVER 15:32 → HO.IMC 17:47
PROVIDERS: Admitting Provider Physician Assistant Medical; Emergency Provider Emergency Medicine Emergency Medical Services; PCP Internal Medicine; Visit Provider Physician Assistant Medical
DX: R07.2 Precordial pain (principal); I47.19 Other supraventricular tachycardia; E78.5 Hyperlipidemia, unspecified; G25.81 Restless legs syndrome; Z79.899 Other long term (current) drug therapy
CPT/HCPCS: 36415; 71045; 80053; 83690; 83735; 83880; 84443; 84484; 85025; 85379; 85610; 85730; 93005; 93306; 99285; Q9957

== ENCOUNTER → 2024-09-19 10:45 | Outpatient (BNV) | payer OTHER, SELFPAY | PROVIDERS: Admitting Provider Physician Assistant Medical; Emergency Provider Emergency Medicine Emergency Medical Services; PCP Internal Medicine; Visit Provider Radiology Diagnostic Radiology | DX: R07.2 Precordial pain (principal) | CPT/HCPCS: 71045 ==

== ENCOUNTER → 2024-09-19 15:15 | Outpatient (BNV) | payer OTHER, SELFPAY | PROVIDERS: Admitting Provider Physician Assistant Medical; Emergency Provider Emergency Medicine Emergency Medical Services; PCP Internal Medicine; Visit Provider Physician Assistant Medical | DX: R07.2 Precordial pain (principal) | CPT/HCPCS: 99223; 99239 ==

== ENCOUNTER → 2024-09-19 15:15 | Outpatient (BNV) | payer OTHER, SELFPAY | PROVIDERS: Admitting Provider Physician Assistant Medical; Emergency Provider Emergency Medicine Emergency Medical Services; PCP Internal Medicine; Visit Provider Internal Medicine | DX: R07.2 Precordial pain (principal) | CPT/HCPCS: 93010; 93306; 99223; 99233 ==

== ENCOUNTER → 2024-09-23 23:59 | Outpatient (BNV) | payer OTHER, SELFPAY | PROVIDERS: PCP Internal Medicine; Visit Provider Internal Medicine Cardiovascular Disease | DX: I20.89 Other forms of angina pectoris (principal); R07.9 Chest pain, unspecified | CPT/HCPCS: 93458; 99152 ==

== ENCOUNTER 2024-10-02 10:05 | Outpatient (REF) | payer OTHER, SELFPAY ==
[2024-10-02 10:37] LABS: MANUAL DIFF FLAG NO
[2024-10-02 10:41] LABS: Basophils Percent Auto 0.4 % (0-2); Eosinophils Absolute Auto 0.3 X10*3/uL (0.0-0.4); Eosinophils Percent Auto 3.7 % (0-4); Hematocrit 40.4 % (37.0-47.0); Hemoglobin 13.5 g/dl (12.0-16.0); Imm Gran Abs Auto 0.01 X10*3/uL (0.00-0.03); Imm Gran Pct Auto 0.1 % (0.0-0.4); Lymphocytes Absolute Auto 2.2 X10*3/uL (1.2-4.9); Lymphocytes Percent Auto 30.3 % (20-40); Mean Corpuscular HGB Conc 33.4 g/dl (31.0-35.0); Mean Corpuscular Hemoglobin 31.1 pg (27.0-33.0); Mean Corpuscular Volume 93.1 fL (80.0-98.0); Monocytes Absolute Auto 0.4 X10*3/uL (0.1-1.2); Monocytes Percent Auto 5.1 % (2-11); Neutrophils Absolute Auto 4.4 x10*3/uL (2.0-8.3); Neutrophils Percent Auto 60.4 % (45-73); Platelet Count 220 X10*3/uL (160-400); Red Blood Count 4.34 X10*6/uL (4.20-5.50); Red Cell Distribution Width 12.2 % (11.0-16.0); White Blood Count 7.2 X10*3/uL (4.8-10.8)
[2024-10-02 11:10] LABS: Alanine Aminotransferase 18 U/L (0-31); Albumin Level 4.3 g/dL (3.5-5.0); Alkaline Phosphatase 120 U/L (39-117); Anion Gap 9 (12-20); Aspartate Amino Transferase 27 U/L (5-31); Bilirubin Total 0.5 mg/dL (0.0-1.0); Blood Urea Nitrogen 17 mg/dL (9-16); Calcium 9.5 mg/dL (8.4-10.2); Carbon Dioxide 29 mmol/L (22-29); Chloride 105 mmol/L (96-108); Cholesterol 295 mg/dL (<200); Estimated Glomerular Filt Rate > 60; Glucose Random 99 mg/dL (60-115); HDL Cholesterol 44 mg/dL (>40); LDL Cholesterol Calculated 199 mg/dL (<100); Potassium 4.1 mmol/L (3.3-5.1); Sodium 139 mmol/L (135-145); Total Protein 7.3 g/dL (6.5-8.0); Triglycerides 260 mg/dL (<150)
[2024-10-02 11:14] LABS: TSH reflex Free T4 0.82 uIU/mL (0.32-4.0)
[2024-10-02 14:12] LABS: Estimated Average Glucose 105 mg/dL; Hemoglobin A1C 116.8471 umol/L; Hemoglobin A1c % 5.3 % (<6.0); Total Hemoglobin (HGBA1C) 3375.4454 umol/L
== END 2024-10-02 10:06 | disposition home or self-care (01) ==
LOC: HO.10HDL 10:05
PROVIDERS: Visit Provider Internal Medicine
DX: E78.00 Pure hypercholesterolemia, unspecified (principal); G25.81 Restless legs syndrome; R51.9 Headache, unspecified; G89.29 Other chronic pain; R73.01 Impaired fasting glucose
CPT/HCPCS: 36415; 80053; 80061; 83036; 84443; 85025

== ENCOUNTER → 2024-10-02 10:17 | Outpatient (REF) | payer OTHER, SELFPAY ==
--- NOTE | 2024-10-02 10:23 | HM_ITS ---
Conclusion: 1. Patient was monitored for total period of 4 days and 23 hours 2. Baseline was normal sinus with average heart of 54 beats per minute 3. No significant pauses noted but frequent sinus bradycardia noted with 80% of the time heart rate below 60 beats per minute 4. Occasional PACs noted without any sustained episodes of atrial fibrillation 5. Patient marked the counter 4 times with 3 times symptoms of shortness of breath correlating with sinus bradycardia and 1 time symptoms of chest pain correlating with sinus rhythm MTDD
== END ==
LOC: HO.CARD 10:17
PROVIDERS: PCP Internal Medicine; Visit Provider Nurse Practitioner Family
DX: I47.19 Other supraventricular tachycardia (principal)
CPT/HCPCS: 93242

== ENCOUNTER → 2024-10-02 10:23 | Outpatient (BNV) | payer OTHER, SELFPAY | PROVIDERS: PCP Internal Medicine; Visit Provider Internal Medicine Cardiovascular Disease | DX: R00.1 Bradycardia, unspecified (principal) | CPT/HCPCS: 93244 ==

== ENCOUNTER 2024-11-05 14:10 | Outpatient (REF) | payer OTHER, SELFPAY ==
--- OUTSIDE RECORDS SUMMARY | 2024-11-05 14:13 | XMS_ITS | Patient Health Record ---
Author Organization [facility] Address [address] [place] [address] Care Team Providers Care Driller'S Offsider Name Role Phone Baldo Flaherty MD Primary Care Provider Oswald Desai Jr Unavailable [phone] ALLERGIES Allergen (clinical drug ingredient) Drug/Non Drug [...] Problem GERD without esophagitis (K21.9) Active confirmed 725333001 Problem Epigastric pain (R10.13) Active confirmed 21968378 Problem Colon cancer screening (Z12.11) Active confirmed 492730168 Problem Rectal bleeding (K62.5) Active confirmed 76363065 Problem Abnormal CT scan, colon (R93.3) Active confirmed 852780301 PLAN OF TREATMENT Future Test Test Name Order Date COLONOSCOPY 03/25/2015 UPPER GI ENDOSCOPY 11/10/2020 COLONOSCOPY 11/10/2020 COLONOSCOPY 11/23/2022 Insurance Providers Payer Name Payer Address Payer Phone Subscriber Number Group Number Insured Name Patient Relationship to Insured Coverage Start Date Coverage End Date [employer] [address] [address] [place] [address] [id number] CHELSEY BRAXTON Self - patient is [...]
--- OUTSIDE RECORDS SUMMARY | 2024-11-05 14:13 | XMS_ITS | Patient Health Record ---
Author Organization [facility] Address [address] [place] [address] Care Team Providers Care Telephone Interviewer Name Role Phone Baldo Flaherty MD Primary Care Provider Cesia Jeffery Unavailable [phone] Allergies Allergen (clinical drug ingredient) Drug/Non Drug Allergy documented on EMR Reaction Allergy Type Onset Date Status diphenhydramine Benadryl hyper Drug Allergy A ctive ciprofloxacin Cipro frozen shoulder Drug Allergy Active meperidine Demerol vomiting Drug Allergy Active Levaquin frozen shoulder Drug Allergy A ctive Reason For Referral No Information Medications Medication SIG (Take, Route, Frequency, Duration) Notes [...] Once a day for 30 day(s) Not-Taking Social History Tobacco Use: Social History Observation Description Date Details (start date - stop date) Former Smoker NA - NA Tobacco Use/Smoking Question Answer Notes Are you a: former smoker Additional Findings: Tobacco Non-User Current no n-smoker Alcohol Screen Question Answer Notes Did you have a drink containing alcohol in the p ast year? No Points 0 Interpretation Negative Tobacco use other than smoking: Question Answer Notes Are you an other tobacco user? No Problems Problem Type SNOMED Code ICD Code Onset Dates Problem Status W/U Status Risk Notes Problem [id number] Hallux valgus (acquired), right foot (M20.11) Active confirmed Plan Of Treatment Pending Test Test Name Order Date X ray : Ankle, right 2V 05/17/2022 X ray : Foot, right 3V 05/17/2022 X ray : Foot, right 3V 01/24/2012 [id number], [id number], JOINT/BURSA 0 01/24/2012 23461,[id number] TENDON SHEATH/LIGAMENT 1 50,[id number] TENDON SHEATH/LIGAMENT 0 03/25/2015 Insurance Providers Payer Name Payer Address Payer Phone Subscriber Number Group Number Insured Name Patient Relationship to Insured Coverage Start Date Coverage End Date Blue Benefits [address] [address] [place] [address] [id number] Jefe Alvarez Spouse - patient is the spouse of the insured Medical (General) History Medical History History ICD Code chicken pox measles mumps back, hip, knee pain headaches/migraines reflux Arthritis CAD (Cholesterol) Psoriasis/eczema Joint implants/screws Herniated disc Surgical History Surgery Date(Month/Year) hemorrhoidectomy 1970 total knee surgery, left colonoscopy 2014 herniated disc 2009
[2024-11-06 11:06] LABS: HPV 16,18/45 See PAP report
== END 2024-11-05 14:11 | disposition home or self-care (01) ==
LOC: HO.LNP 14:10
PROVIDERS: Visit Provider Obstetrics & Gynecology
DX: Z01.419 Encounter for gynecological examination (general) (routine) without abnormal findings (principal)
CPT/HCPCS: 87624; 88175

== ENCOUNTER 2024-12-18 09:15 | Outpatient (REF) | payer OTHER, SELFPAY ==
--- OUTSIDE RECORDS SUMMARY | 2024-12-18 12:25 | XMS_ITS | Patient Health Record ---
Author Organization [facility] Address [address] [place] [address] Care Team Providers Care Grinding Mill Operator Name Role Phone Baldo Flaherty MD Primary Care Provider Oswald Desai Jr Unavailable ALLERGIES Allergen (clinical drug ingredient) Drug/Non Drug [...] Problem GERD without esophagitis (K21.9) Active confirmed 168607016 Problem Epigastric pain (R10.13) Active confirmed 12097739 Problem Colon cancer screening (Z12.11) Active confirmed 049562492 Problem Rectal bleeding (K62.5) Active confirmed 00953618 Problem Abnormal CT scan, colon (R93.3) Active confirmed 492022120 PLAN OF TREATMENT Future Test Test Name Order Date COLONOSCOPY 03/25/2015 UPPER GI ENDOSCOPY 11/10/2020 COLONOSCOPY 11/10/2020 COLONOSCOPY 11/23/2022 Insurance Providers Payer Name Payer Address Payer Phone Subscriber Number Group Number Insured Name Patient Relationship to Insured Coverage Start Date Coverage End Date [employer] [address] [address] [place] [address] [id number] CHELSEY BRAXTON Self - patient is [...]
--- OUTSIDE RECORDS SUMMARY | 2024-12-18 12:26 | XMS_ITS | Patient Health Record ---
Author Organization [facility] Address [address] [place] [address] Care Team Providers Care Multifold Operator Name Role Phone Baldo Flaherty MD Primary Care Provider Cesia Jeffery Unavailable [phone] Allergies Allergen (clinical drug ingredient) Drug/Non Drug [...] Problem Status W/U Status Risk Notes Problem [id number] Hallux valgus (acquired), right foot (M20.11) Active confirmed Plan Of Treatment Pending Test Test Name Order Date X ray : Ankle, right 2V 05/17/2022 X ray : Foot, right 3V 05/17/2022 X ray : Foot, right 3V 01/24/2012 [id number], [id number], JOINT/BURSA 0 01/24/2012 22228,[id number] TENDON SHEATH/LIGAMENT 1 50,[id number] TENDON SHEATH/LIGAMENT 0 03/25/2015 Insurance Providers Payer Name Payer Address Payer Phone Subscriber Number Group Number Insured Name Patient Relationship to Insured Coverage Start Date Coverage End Date Blue Benefits [address] [address] [place] [address] [id number] Jefe Alvarez Spouse - patient is the spouse of the insured Medical (General) History Medical History History ICD Code chicken pox measles mumps back, hip, knee pain headaches/migraines reflux Arthritis CAD (Cholesterol) Psoriasis/eczema Joint implants/screws Herniated disc Surgical History Surgery Date(Month/Year) hemorrhoidectomy 1970 total knee surgery, left colonoscopy 2014 herniated disc 2009
== END 2024-12-18 09:16 | disposition home or self-care (01) ==
LOC: HO.MAMMO 09:15
PROVIDERS: PCP Internal Medicine; Visit Provider Internal Medicine
DX: Z12.31 Encounter for screening mammogram for malignant neoplasm of breast (principal)
CPT/HCPCS: 77063; 77067

== ENCOUNTER → 2024-12-18 09:30 | Outpatient (BNV) | payer OTHER, SELFPAY | PROVIDERS: PCP Internal Medicine; Visit Provider Internal Medicine | DX: Z12.31 Encounter for screening mammogram for malignant neoplasm of breast (principal) | CPT/HCPCS: 77063; 77067 ==

== ENCOUNTER 2025-01-29 09:35 | Outpatient (AMB) | payer OTHER, SELFPAY ==
[2025-01-29 09:51] VITALS: BP 120/80; PULSE 68; BMI 36.3
--- NOTE | 2025-01-29 09:51 | MHC.OFFVIS ---
Vital Signs 01/29/25 09:51 Height 5 ft 3 in Weight 205 lb 0.478 oz BMI 36.3 BP 120/80 Blood Pressure Location Lt brachial Position Sitting Pulse 68 Intake Visit Reasons: 1 year fu Intake Note: Follow-up post cardiac cath and holter feeling good Laboratory Manager Required: No Allergies Sthdmtc-VVX-XxL Reductase Inhibitor Allergy (Intermediate, Verified 09/19/24 10:22) Joint Pain diphenhydramine [From Benadryl] Allergy (Verified 09/19/24 10:22) Agitated levofloxacin Allergy (Verified 09/19/24 10:22) frozen shoulder Medication List - Last Reconciled 01/29/25 by Fernando Rivero MD albuterol sulfate 90 mcg/actuation (Ventolin HFA) 1 puff inhalation Q6H PRN jqxfjycrvh-antamttdcztus-sosf 50-325-40 mg 1 tab PO Q6H PRN cholecalciferol (vitamin D3) 25 mcg PO DAILY ibuprofen 600 mg PO DAILY PRN metoprolol succinate ER (Toprol XL) 25 mg PO DAILY 90 days omeprazole 20 mg PO DAILY@0630 PRN ondansetron HCl 1 tab PO Q8H PRN ropinirole 1 tab PO BEDTIME HPI Comments Details: Helene comes for follow-up. He was intermittently gets symptoms of palpitation about once a week or so where she feels symptoms for few seconds. She counts and dizzy about 10 beats. Symptoms then dissipate by itself. She is currently taking metoprolol. No prolonged palpitations. No more frequent palpitations. She was watching stimulants. Angiogram in September had shown normal coronary arteries. [facility] Medical History (Updated 01/29/25 @ 10:14 by Fernando Rivero MD) False positive stress test Positive hepatitis C antibody test History of COVID-19 Asthma Lumbar disc disease History of kidney stones GERD (gastroesophageal reflux disease) Migraine Restless leg syndrome Hypercholesteremia Surgical History Hx of hemorrhoidectomy Hx of colonoscopy History of left knee replacement Social History Household Members: Family Housing: House Are you a primary hospice patient care secretary to a significant other at home: No Do you presently have visiting nurse or other home services: No Patient Tobacco Use Status: Former Tobacco user Second Hand Smoke Exposure: No Advance Directives Date on File: 08/27/20 service: No Review of Systems Const Denies chills, Denies fatigue, Denies fever(s), Denies frequent falls, Denies weakness, Denies weight gain and Denies weight loss ENT Denies dizziness Card Denies chest pain, Denies leg edema, Denies lightheadedness, Denies palpitations, Denies dyspnea, Denies dyspnea on exertion, Denies orthopnea and Denies other (loss of consciousness) Resp Denies cough, Denies dyspnea and Denies dyspnea on exertion GI Denies hematochezia and Denies change in stool character Musc Denies abnormal gait, Denies muscle weakness, Denies numbness, Denies radiating pain into limb and Denies tingling Neuro Denies Abnormal speech present, Denies abnormal gait, Denies dizziness, Denies frequent falls, Denies numbness, Denies tingling and Denies weakness Endo Denies fatigue and Denies palpitations Physical Exam Vital Signs: Last Vital Signs Pulse 68 01/29/25 09:51 BP 120/80 01/29/25 09:51 BMI result Body Mass Index 36.3 Const General: cooperative, comfortable, no acute distress, well developed, alert, awake and Physically active Nutritional Appearance: well nourished and obese Orientation/consciousness: patient oriented x3 Limitations: no limitations HEENT Head: Yes normocephalic and Yes atraumatic Neck Neck: Yes trachea midline, Yes supple and Yes no JVD Carotids: no bruits Resp Effort & Inspection: normal respiratory effort Auscultation: clear to auscultation bilaterally Cardio Jugular venous distension: no JVD Palpation: normal PMI Rate: bradycardic Rhythm: regular rhythm Heart sounds: S1 normal heart sound present, S2 normal heart sound present, no click, no gallops, no murmurs and no rubs Peripheral pulses: Peripheral pulses 2+ throughout GI Auscultation: normal bowel sounds Skin General skin exam: no rashes or lesions noted Neuro General: patient oriented x3 and no focal motor deficits Speech: No Abnormal speech present Extrem General: Yes no clubbing, cyanosis or edema Psych Appearance: grossly normal Assessment & Plan Assessment & Plan (1) Paroxysmal atrial tachycardia: Code(s): I47.19 - Other supraventricular tachycardia Category: Medical Plan: Paroxysmal atrial tachycardia with what lasting infrequent symptoms. These are not very bothersome life-limiting at this point time. I would advised to continue metoprolol therapy for now. Continue to avoid stimulants. Stress mitigation strategies were discussed. Advised to call me with worsening symptoms that may require further escalation in therapy. Discussed with her. She understands agrees. Continue to participate in heart healthy lifestyle. Will follow up in the clinic in 2 years time, sooner p.r.n.. Thank you for allowing me to partake in her care Medications: Refilled metoprolol succinate ER (Toprol XL) 25 mg PO DAILY 90 days 90 tabs 3RF I47.19 - Other supraventricular tachycardia Coding Level of Care Code Est Pt Level 3 (02887) Complex EM visit Add On G2211 Diagnoses Paroxysmal atrial tachycardia I47.19
--- OUTSIDE RECORDS SUMMARY | 2025-01-29 11:23 | XMS_ITS | Patient Health Record ---
Author Organization [facility] Address [address] [place] [address] Care Team Providers Care Lastex Operator Name Role Phone Baldo Flaherty MD Primary Care Provider Oswald Desai Jr Unavailable Allergies Allergen (clinical drug ingredient) Drug/Non Drug Allergy documented on EMR Reaction Allergy Type Onset Date Status levofloxacin Levofloxacin Unknown Drug Allergy A ctive diphenhydramine Benadryl Unknown Drug Allergy A ctive Reason For Referral [...] Active rOPINIRole HCl 0.25 MG Orally Active Immunizations Vaccine Route Administration Date Status Comme nts Influenza Unknown 11/10/2020 Refused Problems Problem Type SNOMED Code ICD Code Onset Dates Problem Status W/U Status Risk Notes Problem 413991762 Colon cancer screening (Z12.11) Active confirmed Problem 80958282 Rectal bleeding (K62.5) Active confirmed Problem 59121544 Epigastric pain (R10.13) Active confirmed Problem 398504683 Abnormal CT scan, colon (R93.3) Active confirmed Problem 959141153 GERD without esophagitis (K21.9) Active confirmed Plan Of Treatment Future Test Test Name Order Date COLONOSCOPY 03/25/2015 UPPER GI ENDOSCOPY 11/10/2020 COLONOSCOPY 11/10/2020 COLONOSCOPY 11/23/2022 Insurance Providers Payer Name Payer Address Payer Phone Subscriber Number Group Number Insured Name Patient Relationship to Insured Coverage Start Date Coverage End Date [employer] [place] [address] [address] [place] [address] [id number] CHELSEY BRAXTON Self - patient is the insured Medical (General) History Medical History History ICD Code colonoscopy 01/09, small hyperplastic alexx yp, ten-year followup gerd EGD 01/09, fundic gland polyps, no B E or HP elevated cholesterol positive hepatitis C antibody, negative viremia restless leg syndrome Nephrolithiasis Asthmatic bronchitis Surgical History Surgery Date(Month/Year) hemorrhoid surgery left knee replacement
--- OUTSIDE RECORDS SUMMARY | 2025-01-29 11:23 | XMS_ITS | Patient Health Record ---
Author Organization [facility] Address [address] [place] [address] Care Team Providers Care Well Blower Name Role Phone Baldo Flaherty MD Primary Care Provider Cesia Jeffery Unavailable [phone] Allergies Allergen (clinical drug ingredient) Drug/Non Drug [...] Problem Status W/U Status Risk Notes Problem [id number] Hallux valgus (acquired), right foot (M20.11) Active confirmed Plan Of Treatment Pending Test Test Name Order Date X ray : Ankle, right 2V 05/17/2022 X ray : Foot, right 3V 05/17/2022 X ray : Foot, right 3V 01/24/2012 [id number], [id number], JOINT/BURSA 0 01/24/2012 [id number] TENDON SHEATH/LIGAMENT 1 50,[id number] TENDON SHEATH/LIGAMENT 0 03/25/2015 Insurance Providers Payer Name Payer Address Payer Phone Subscriber Number Group Number Insured Name Patient Relationship to Insured Coverage Start Date Coverage End Date Blue Benefits [address] [address] [place] [address] [id number] Jefe Alvarez Spouse - patient is the spouse of the insured Medical (General) History Medical History History ICD Code chicken pox measles mumps back, hip, knee pain headaches/migraines reflux Arthritis CAD (Cholesterol) Psoriasis/eczema Joint implants/screws Herniated disc Surgical History Surgery Date(Month/Year) hemorrhoidectomy 1970 total knee surgery, left colonoscopy 2014 herniated disc 2009
== END 2025-01-29 10:12 | disposition home or self-care (01) ==
LOC: HO.HCS 09:35
PROVIDERS: PCP Internal Medicine; Visit Provider Internal Medicine Cardiovascular Disease
DX: I47.19 Other supraventricular tachycardia (principal)
CPT/HCPCS: 99213

== ENCOUNTER 2025-04-16 09:08 | Outpatient (REF) | payer OTHER, SELFPAY ==
--- NOTE | ~2025-04-16 | XR_ITS ---
EXAMINATION: XR KNEE 3 VIEWS RIGHT HISTORY: M25.561 - Pain in right knee COMPARISON: Correlation is made with a standing AP view of the right knee dated 08/18/2016. FINDINGS: Standing AP views of both knees and additional lateral and sunrise patellar views of the right knee are submitted. Osseous mineralization is normal. There is no fracture or dislocation. There is mild narrowing of the medial and patellofemoral compartments with osteophyte formation. The patient is status post left total hip knee arthroplasty. The soft tissues are unremarkable. There is no joint effusion. 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 Electronically signed by: Michael Robins MD 04/16/2025 10:12 AM EDT
--- OUTSIDE RECORDS SUMMARY | 2025-04-17 09:18 | XMS_ITS | Patient Health Record ---
Author Organization [facility] Address [address] [place] [address] Care Team Providers Care Naphthalene Operator Helper Name Role Phone Baldo Flaherty MD Primary [...] Problem Status W/U Status Risk Notes Problem [id number] Colon cancer screening (Z12.11) Active confirmed Problem 32550675 Rectal bleeding (K62.5) Active confirmed Problem 18298335 Epigastric pain (R10.13) Active confirmed Problem 604624922 Abnormal CT scan, colon (R93.3) Active confirmed Problem 545302298 GERD without esophagitis (K21.9) Active confirmed Plan Of Treatment Future Test Test Name Order Date COLONOSCOPY 03/25/2015 UPPER GI ENDOSCOPY 11/10/2020 COLONOSCOPY 11/10/2020 COLONOSCOPY 11/23/2022 Insurance Providers Payer Name Payer Address Payer Phone Subscriber Number Group Number Insured Name Patient Relationship to Insured Coverage Start Date Coverage End Date [employer] [place] [address] [address] [place] [address] [id number] CHELSEY BRAXTON Self - patient is [...]
== END 2025-04-16 09:09 | disposition home or self-care (01) ==
LOC: HO.HOSX 09:08
PROVIDERS: Visit Provider Orthopaedic Surgery
DX: M25.561 Pain in right knee (principal)
CPT/HCPCS: 73562

== ENCOUNTER 2025-04-16 09:46 | Outpatient (AMB) | payer OTHER, SELFPAY ==
--- NOTE | 2025-04-16 09:47 | MHC.OFFVIS ---
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 She did undergo left total knee replacement surgery by Dr. Fabian in 2013. She reports minimal discomfort in her left knee. She did aggravate her right knee several weeks ago while doing yard work. She has taken Naprosyn which gives her fairly good relief. She denies any locking or giving way. Most of her discomfort is along the medial aspect of her knee. Allergies Vycykip-JRB-MlF Reductase Inhibitor Allergy (Intermediate, Verified 04/16/25 10:01) Joint Pain diphenhydramine [From Benadryl] Allergy (Verified 04/16/25 10:01) Agitated levofloxacin Allergy (Verified 04/16/25 10:01) frozen shoulder Medication List - Last Reconciled 04/16/25 by Rudolph Armstrong MD albuterol sulfate 90 mcg/actuation (Ventolin HFA) 1 puff inhalation Q6H PRN fnueeycswe-vowierlboxatg-lpuw 50-325-40 mg 1 tab PO Q6H PRN cholecalciferol (vitamin D3) 25 mcg PO DAILY ibuprofen 600 mg PO DAILY PRN metoprolol succinate ER (Toprol XL) 25 mg PO DAILY 90 days omeprazole 20 mg PO DAILY@0630 PRN ondansetron HCl 1 tab PO Q8H PRN ropinirole 1 tab PO BEDTIME PFSH Medical History (Updated 04/15/25 @ 08:22 by Rudolph Armstrong MD) False positive stress test Positive hepatitis C antibody test History of COVID-19 Asthma Lumbar disc disease History of kidney stones GERD (gastroesophageal reflux disease) Migraine Restless leg syndrome Hypercholesteremia Surgical History Hx of hemorrhoidectomy Hx of colonoscopy History of left knee replacement Social History Household Members: Family Housing: House Are you a primary career services director to a significant other at home: No Do you presently have visiting nurse or other home services: No Patient Tobacco Use Status: Former Tobacco user Second Hand Smoke Exposure: No Advance Directives Date on File: 08/27/20 service: No Physical Exam Vital Signs: BMI result Body Mass Index 36.3 Const Other: Well-nourished well-developed very friendly female awake alert and oriented x3 in no acute distress Extrem Other: Bilateral lower extremity examination shows good capillary refill, no skin lesions noted, normal sensation light touch Right knee examination shows a minimal effusion, mild crepitus with range of motion, tenderness along her medial joint line, positive Fiona's test, no instability Results Reviewed Results Reviewed: X-rays of the patient's right knee show mild diffuse joint space narrowing, no acute bony abnormalities Assessment & Plan Assessment & Plan (1) Right knee pain: Code(s): M25.561 - Pain in right knee Category: Medical Plan Ms. Alvarez presents with intermittent right knee discomfort due to early degenerative joint disease as well as possible medial meniscus tearing. I had a lengthy discussion with the patient regarding the treatment options. At this point the patient's symptoms are tolerable to her. She will continue taking Naprosyn as needed. She will continue with her activity modifications. She will follow up with me on an as-needed basis should her symptoms worsen in any way. Feel free to call me at any time should questions regarding her orthopedic management arise. Thank you very much for asking me to see this very friendly patient. I spent 20 minutes in reviewing the patient's records and imaging studies, seeing the patient and documenting in the medical record. Orders: Orders XR knee RT 3V Today M25.561 - Pain in right knee Coding Level of Care Code New Pt Level 3 (25209) Complex EM visit Add On G2211 Diagnoses Right knee pain M25.561
[2025-04-16 09:59] VITALS: BMI 36.3
--- OUTSIDE RECORDS SUMMARY | 2025-04-16 10:06 | XMS_ITS | Patient Health Record ---
Author Organization [facility] Address [address] [place] [address] Care Team Providers Care Frame Wirer Name Role Phone Baldo Flaherty MD Primary Care Provider Oswald Desai Jr Unavailable [phone] Allergies Allergen (clinical drug ingredient) Drug/Non Drug [...] Problem Status W/U Status Risk Notes Problem [id number] Colon cancer screening (Z12.11) Active confirmed Problem 05372936 Rectal bleeding (K62.5) Active confirmed Problem 28091217 Epigastric pain (R10.13) Active confirmed Problem 894707704 Abnormal CT scan, colon (R93.3) Active confirmed Problem 062595898 GERD without esophagitis (K21.9) Active confirmed Plan Of Treatment Future Test Test Name Order Date COLONOSCOPY 03/25/2015 UPPER GI ENDOSCOPY 11/10/2020 COLONOSCOPY 11/10/2020 COLONOSCOPY 11/23/2022 Insurance Providers Payer Name Payer Address Payer Phone Subscriber Number Group Number Insured Name Patient Relationship to Insured Coverage Start Date Coverage End Date [employer] [place] [address] [address] [place] [address] [id number] CHELSEY BRAXTON Self - patient is [...]
== END 2025-04-16 10:24 | disposition home or self-care (01) ==
LOC: HO.HOS 09:46
PROVIDERS: PCP Internal Medicine; Visit Provider Physician Assistant
DX: M25.561 Pain in right knee (principal)
CPT/HCPCS: 99203

== ENCOUNTER → 2025-04-16 09:49 | Outpatient (BNV) | payer OTHER, SELFPAY | PROVIDERS: Visit Provider Radiology Diagnostic Radiology | DX: M25.561 Pain in right knee (principal) | CPT/HCPCS: 73562 ==

== ENCOUNTER 2025-05-27 09:24 | Outpatient (REF) | payer OTHER, SELFPAY ==
--- OUTSIDE RECORDS SUMMARY | 2025-05-27 09:47 | XMS_ITS | Patient Health Record ---
Author Organization [facility] Address [address] [place] [address] Care Team Providers Care Print Washer Name Role Phone Baldo Flaherty MD Primary [...] Problem Status W/U Status Risk Notes Problem 363849728 Colon cancer screening (Z12.11) Active confirmed Problem 12110895 Rectal bleeding (K62.5) Active confirmed Problem 72932326 Epigastric pain (R10.13) Active confirmed Problem 177971006 Abnormal CT scan, colon (R93.3) Active confirmed Problem 343400425 GERD without esophagitis (K21.9) Active confirmed Plan Of Treatment Future Test Test Name Order Date COLONOSCOPY 03/25/2015 UPPER GI ENDOSCOPY 11/10/2020 COLONOSCOPY 11/10/2020 COLONOSCOPY 11/23/2022 Insurance Providers Payer Name Payer Address Payer Phone Subscriber Number Group Number Insured Name Patient Relationship to Insured Coverage Start Date Coverage End Date [employer] [place] [address] [address] [place] [address] [id number] 3 CHELSEY BRAXTON Self - patient is [...]
--- OUTSIDE RECORDS SUMMARY | 2025-05-27 09:47 | XMS_ITS | Patient Health Record ---
Author Organization [facility] Address [address] [address] Care Team Providers Care Campus Recruiting Intern Name Role Phone Baldo Flaherty MD Primary Care Provider Cesia Jeffery Unavailable [phone] Allergies Allergen (clinical drug ingredient) Drug/Non Drug [...] h ours before bedtime Orally Once a day; Duration: 30 day(s) Active Simvastatin Not-Taki ng Maxalt Not-Taking Butabarbital Sodium Not-Taking Antacid Active Multivitamins as directed Orally Not-Taking Fioricet Active Zantac 150 MG 1 tablet Orally Twic e a day; Duration: 30 day(s) Not-Taking Ibuprofen Active Custom Orthotics . . .; Duration: . 11/22/2015 Not-Taking Meloxicam 15 MG 1 tablet Orally Once a day; Duration: 30 Not-Taking Lipitor 20 MG 1 tablet Orally Once a day; Duration: 30 day(s) Not-Taking Calcium + D 600-200 MG-UNIT 1 tablet with food Orally Once a day; Duration: 30 day(s) Not-Taking Social History Tobacco Use: [...] Problem Status W/U Status Risk Notes Problem Acquired hallux valgus (08697434) Hallux valgus (acquired), right foot (M20.11) Active confirmed Plan Of Treatment Pending Test Test Name Order Date X ray : Ankle, right 2V 05/17/2022 X ray : Foot, right 3V 05/17/2022 X ray : Foot, right 3V 01/24/2012 39160, [id number]/[id number], JOINT/BURSA 0 01/24/2012 78083,[id number] TENDON SHEATH/LIGAMENT 1 69305,[id number] TENDON SHEATH/LIGAMENT 0 03/25/2015 Insurance Providers Payer Name Payer Address Payer Phone Subscriber Number Group Number Insured Name Patient Relationship to Insured Coverage Start Date Coverage End Date Blue Benefits [address] [address] [place] [address] [id number] Jefe Alvarez Spouse - patient is the spouse of the insured Medical (General) History Medical History History ICD Code chicken pox measles mumps back, hip, knee pain headaches/migraines reflux Arthritis CAD (Cholesterol) Psoriasis/eczema Joint implants/screws Herniated disc Surgical History Surgery Date(Month/Year) hemorrhoidectomy 1969 total knee surgery, left colonoscopy 2014 herniated disc 2009
[2025-05-27 10:01] LABS: Appearance Urine Cloudy; Glucose Urine UA Negative (Negative); PH 5.5 (5.0-9.0); Specific Gravity - Urine 1.020 (1.005-1.025); UMIC TRIGGER UACC YES
== END 2025-05-27 09:25 | disposition home or self-care (01) ==
LOC: HO.10HDLNP 09:24
DX: R31.9 Hematuria, unspecified (principal)
CPT/HCPCS: 81001

== ENCOUNTER 2025-06-30 09:24 | Outpatient (REF) | payer OTHER, SELFPAY ==
--- OUTSIDE RECORDS SUMMARY | 2025-06-30 10:00 | XMS_ITS | Patient Health Record ---
Author Organization [facility] Address [address] [place] [address] Care Team Providers Care Correction Officer Reformatory Name Role Phone Baldo Flaherty MD Primary Care Provider Cesia Jeffery Unavailable [phone] Allergies Allergen (clinical drug ingredient) Drug/Non Drug [...] Status Risk Notes Problem Acquired hallux valgus (23621843) Hallux valgus (acquired), right foot (M20.11) Active confirmed Plan Of Treatment Pending Test Test Name Order Date X ray : Ankle, right 2V 05/17/2022 X ray : Foot, right 3V 05/17/2022 X ray : Foot, right 3V 01/24/2012 38941, [id number]/[id number], JOINT/BURSA 0 01/24/2012 [id number] TENDON SHEATH/LIGAMENT 1 73760,[id number] TENDON SHEATH/LIGAMENT 0 03/25/2015 Insurance Providers Payer Name Payer Address Payer Phone Subscriber Number Group Number Insured Name Patient Relationship to Insured Coverage Start Date Coverage End Date Blue Benefits [address] [address] [place] [address] [id number] Jefe Alvarez Spouse - patient is the spouse of the insured Medical (General) History Medical History History ICD Code chicken pox measles mumps back, hip, knee pain headaches/migraines reflux Arthritis CAD (Cholesterol) Psoriasis/eczema Joint implants/screws Herniated disc Surgical History Surgery Date(Month/Year) hemorrhoidectomy 1969 total knee surgery, left colonoscopy 2014 herniated disc 2009
--- OUTSIDE RECORDS SUMMARY | 2025-06-30 10:00 | XMS_ITS | Encounter Summary ---
Author Organization [facility] Address [address] [place] [address] [place] [address] Phone Care Team Providers Care Bleaching Supervisor Name Role Phone Baldo Flaherty MD Primary Care Provider [phone] Oswald Younger MD Unavailable Encounter Details Date Type Department Care Team (Late st Contact Info) Description 10/03/2023 Telephone [facility] Internal Medicine [address] [place], [place] [phone] Baldo Flaherty MD [address] [place] [address] [email or web address] Social History Tobacco Use Types Packs/Day Years Used Date Smoking Tobacco: Former Cigarettes 0.3 8 0 07/03/1971 - 07/03/1979 Smokeless Tobacco: Never Alcohol Use Standard Drinks/Week Comments Yes 0 (1 standard drink = 0.6 oz pur e alcohol) 1-2 drinks, monthly or less Child or Family Care Answer Date Record ed Do you have problems with on e of the following making it difficult for you to work, study, or receive health care? No 09/12/2022 Education Answer Date Recorded Are you interested in help w ith more adult education (for example, completing high school, GED, job training, learning the Czech language, technical skills, or developing parenting skills)? No 09/12/2022 Food Answer Date Recorded Within the past 6 months we worried whether our food would run out before we got money to buy more. Never True 09/12/2022 Within the past 6 months the food we bought just didn't last and we didn't have enough money to get more. Never True Residential Stability Answer Date Recor ded What is your housing situation today? I have brock meyer 09/12/2022 How many times have you move d in the past 12 months? Zero (I did not move) 09/12/2022 Paying for Meds Answer Date Recorded Do you have trouble paying for medicines? No 09/12/2022 Paying Utility Bills Answer Date Record ed Do you have trouble paying your heating or elect ricity bill? No 09/12/2022 Transportation Answer Date Recorded Has the lack of transportati on kept you from medical appointments or from getting medications? No 09/12/2022 Unemployment Answer Date Recorded Are you currently unemployed or working on a part-time or temporary basis, and looking for work? No 09/12/2022 Digital Access Answer Date Recorded No 04/14/2023 No 04/14/2023 Reliable internet access at home? Not on file 04/14/2023 Device with a working camera? Not on file Comments No Sex and Gender Information Value Date Recorded Sex Assigned at Not on file Legal Sex Female 9:53 PM EDT Gender Identity Not on file Sexual Orientation Not on file documented as of this encounter Plan of Treatment Upcoming Encounters Date Type Department Care Team (Late st Contact Info) Description 10/23/2025 8:00 AM EST Office Visit [facility] Internal Medicine [address] [place] [address] Baldo Flaherty MD [address] [place] [address] [email or web address] documented as of this encounter Visit Diagnoses Not on filedocumented in this encounter Additional Health Concerns Assessment Noted Time PHQ-2 Depression Total Score: 0 09/12/20 22 8:20 AM EDT documented as of this encounter Care Teams Bleaching Supervisor Relationship Specialty Start Date End Date Baldo Flaherty MD [address] [place] [address] [email or web address] PCP - General 09/06/17 Oswald Younger MD [address] [place] [phone] Internal Medicine 09/03/20 documented as of this encounter Additional Source Comments The information contained in this document represents components of the legal health record. It is not the complete legal health record.[facility]
--- OUTSIDE RECORDS SUMMARY | 2025-06-30 10:00 | XMS_ITS | Patient Health Record ---
Author Organization [facility] Address [address] [place] [address] Care Team Providers Care Legal Aide Name Role Phone Baldo Flaherty MD Primary Care Provider Oswald Desai Jr Unavailable [phone] Allergies Allergen (clinical drug ingredient) Drug/Non Drug [...] Problem Status W/U Status Risk Notes Problem 666067615 Colon cancer screening (Z12.11) Active confirmed Problem 26660951 Rectal bleeding (K62.5) Active confirmed Problem 89773388 Epigastric pain (R10.13) Active confirmed Problem 894982559 Abnormal CT scan, colon (R93.3) Active confirmed Problem 725325923 GERD without esophagitis (K21.9) Active confirmed Plan Of Treatment Future Test Test Name Order Date COLONOSCOPY 03/25/2015 UPPER GI ENDOSCOPY 11/10/2020 COLONOSCOPY 11/10/2020 COLONOSCOPY 11/23/2022 Insurance Providers Payer Name Payer Address Payer Phone Subscriber Number Group Number Insured Name Patient Relationship to Insured Coverage Start Date Coverage End Date [employer] [place] [address] [address] [place] [address] [id number] 3 CHELSEY BRAXTON Self - patient is [...]
[2025-06-30 10:56] LABS: Blood Urea Nitrogen 13 mg/dL (9-16); Estimated Glomerular Filt Rate > 60
== END 2025-06-30 09:25 | disposition home or self-care (01) ==
LOC: HO.10HDL 09:24
PROVIDERS: Visit Provider Hospitalist
DX: R00.0 Tachycardia, unspecified (principal)
CPT/HCPCS: 36415; 82565; 84520

== ENCOUNTER 2025-07-02 08:09 | Outpatient (REF) | payer OTHER, SELFPAY ==
--- NOTE | ~2025-07-02 | CT_ITS ---
CLINICAL HISTORY: HEMATURIA WITH LOWER ABD PAIN W VOIDING CT abdomen and pelvis with and without contrast Comparison: None provided Findings: There is scattered ground-glass opacities in the right lower lobe of the lung dependent aspect likely due to atelectasis. Hepatomegaly. Spleen, pancreas, both kidneys, and adrenal glands are unremarkable. No nephrolithiasis or hydronephrosis. No suspicious renal masses. No bowel obstruction, pneumoperitoneum, or pneumatosis. Pelvic contents unremarkable. Normal appendix. No acute fracture. Intraosseous hemangioma L1. IMPRESSION: No acute findings. This document has been electronically signed by: Mehrdad Hoang DO on 07/02/2025 12:46:15
--- OUTSIDE RECORDS SUMMARY | 2025-07-02 08:12 | XMS_ITS | Patient Health Record ---
Author Organization [facility] Address [address] [place] [address] Care Team Providers Care Developmental Therapist Name Role Phone Baldo Flaherty MD Primary Care Provider Cesia Jeffery Unavailable [phone] Allergies Allergen (clinical drug ingredient) Drug/Non Drug [...] Status Risk Notes Problem Acquired hallux valgus (95488453) Hallux valgus (acquired), right foot (M20.11) Active confirmed Plan Of Treatment Pending Test Test Name Order Date X ray : Ankle, right 2V 05/17/2022 X ray : Foot, right 3V 05/17/2022 X ray : Foot, right 3V 01/24/2012 77805, [id number]/[id number], JOINT/BURSA 0 01/24/2012 [id number],[id number] TENDON SHEATH/LIGAMENT 1 09929,[id number] TENDON SHEATH/LIGAMENT 0 03/25/2015 Insurance Providers Payer Name Payer Address Payer Phone Subscriber Number Group Number Insured Name Patient Relationship to Insured Coverage Start Date Coverage End Date Blue Benefits [address] [address] [place] [address] [id number] Jefe Alvarez Spouse - patient is the spouse of the insured Medical (General) History Medical History History ICD Code chicken pox measles mumps back, hip, knee pain headaches/migraines reflux Arthritis CAD (Cholesterol) Psoriasis/eczema Joint implants/screws Herniated disc Surgical History Surgery Date(Month/Year) hemorrhoidectomy 1969 total knee surgery, left colonoscopy 2014 herniated disc 2009
--- OUTSIDE RECORDS SUMMARY | 2025-07-02 08:13 | XMS_ITS | Patient Health Record ---
Author Organization [facility] Address [address] [place] [address] Care Team Providers Care Trauma Doctor Name Role Phone Baldo Flaherty MD Primary Care Provider Oswald Desai Jr Unavailable [phone] Allergies Allergen (clinical drug ingredient) Drug/Non Drug [...] Problem Status W/U Status Risk Notes Problem 508894008 Colon cancer screening (Z12.11) Active confirmed Problem 12810123 Rectal bleeding (K62.5) Active confirmed Problem 26920144 Epigastric pain (R10.13) Active confirmed Problem 079127074 Abnormal CT scan, colon (R93.3) Active confirmed Problem 164569811 GERD without esophagitis (K21.9) Active confirmed Plan Of Treatment Future Test Test Name Order Date COLONOSCOPY 03/25/2015 UPPER GI ENDOSCOPY 11/10/2020 COLONOSCOPY 11/10/2020 COLONOSCOPY 11/23/2022 Insurance Providers Payer Name Payer Address Payer Phone Subscriber Number Group Number Insured Name Patient Relationship to Insured Coverage Start Date Coverage End Date [employer] [place] [address] [address] [place] [address] [id number] CHELSEY BRAXTON Self - patient is [...]
--- OUTSIDE RECORDS SUMMARY | 2025-07-02 08:13 | XMS_ITS | Encounter Summary ---
Author Organization [facility] Address [address] [place] [address] [place] [address] Phone Care Team Providers Care Jewelry Repairer Name Role Phone Baldo Flaherty MD Primary Care Provider [phone] Oswald Younger MD Unavailable Encounter Details Date Type Department Care Team (Late st Contact Info) Description 10/03/2023 Telephone [facility] Internal Medicine [address] [place], [place] [phone] Baldo Flaherty MD [address] [place] [address] [email or web address] Social History Tobacco Use Types Packs/Day Years [...] high school, GED, job training, learning the Somali language, technical skills, or developing parenting skills)? [...] Description 10/23/2025 8:00 AM EST Office Visit [facility] Internal Medicine [address] [place] [address] Baldo Flaherty MD [address] [place] [address] [email or web address] documented as of this encounter Visit Diagnoses Not on filedocumented in this encounter Additional Health Concerns Assessment Noted Time PHQ-2 Depression Total Score: 0 09/12/20 22 8:20 AM EDT documented as of this encounter Care Teams Jewelry Repairer Relationship Specialty Start Date End Date Baldo Flaherty MD [address] [place] [address] [email or web address] PCP - General 09/06/17 Oswald Younger MD [address] [place] [phone] Internal Medicine 09/03/20 documented as of this encounter Additional Source Comments The information contained in this document represents components of the legal health record. It is not the complete legal health record.[facility]
[2025-07-02] MEDS: iohexoL 350 MG/ML 100 ML INFUS..BTL IV (09:16)
== END 2025-07-02 08:10 | disposition home or self-care (01) ==
LOC: HO.CT 08:09
PROVIDERS: PCP Internal Medicine
DX: R31.9 Hematuria, unspecified (principal)
CPT/HCPCS: 74178; Q9967

== ENCOUNTER → 2025-07-02 08:11 | Outpatient (BNV) | payer OTHER, SELFPAY | PROVIDERS: PCP Internal Medicine; Visit Provider Family Medicine | DX: R10.30 Lower abdominal pain, unspecified (principal) | CPT/HCPCS: 74178 ==

== ENCOUNTER 2025-10-13 15:20 | Outpatient (REF) | payer OTHER, SELFPAY | END 2025-10-13 15:21 | disposition home or self-care (01) | LOC: HO.LAB 15:20 | PROVIDERS: PCP Internal Medicine; Visit Provider Nurse Practitioner Family | DX: R31.29 Other microscopic hematuria (principal); R39.9 Unspecified symptoms and signs involving the genitourinary system | CPT/HCPCS: 81003; 88112 ==

== ENCOUNTER 2025-10-13 15:20 | Outpatient (AMB) | payer OTHER, SELFPAY ==
--- NOTE | 2025-10-13 15:38 | A.OFFVIS_ITS ---
Intake Visit Reasons: chronic Hematuria/ urinary frequency and urgency Intake Note: Patient is present for CHRONIC HEMATURIA/URINARY FREQUENCY AND URGENCY Urology Medication:NONE Antibiotic Allergy:LEVOFLOXACIN Blood Thinner:NONE Interpersonal Communications Professor Required: No Allergies Zzqobqf-YEX-DuH Reductase Inhibitor Allergy (Intermediate, Verified 10/14/25 08:38) Joint Pain diphenhydramine (From Benadryl) Allergy (Verified 10/14/25 08:38) Agitated levofloxacin Allergy (Verified 10/14/25 08:38) frozen shoulder Medication List - Last Reconciled 10/14/25 by HENRRY De La Paz- albuterol sulfate 90 mcg/actuation (Ventolin HFA) 1 puff inhalation Q6H PRN kyhjmyeqkf-nivroozkiqqpb-pzaf 50-325-40 mg 1 tab PO Q6H PRN cholecalciferol (vitamin D3) 25 mcg PO DAILY ibuprofen 600 mg PO DAILY PRN metoprolol succinate ER (Toprol XL) 25 mg PO DAILY 90 days omeprazole 20 mg PO DAILY@0630 PRN ondansetron HCl 1 tab PO Q8H PRN ropinirole 1 tab PO BEDTIME HPI Comments Details: Helene his a very pleasant 70-year-old female patient of Dr. Flaherty. She has a past medical history of asthma, lumbar disc disease, nephrolithiasis, GERD, migraines, restless leg syndrome, and hypercholesteremia. She presents to the office today as a new patient for a longstanding history of nephrolithiasis as well as microscopic hematuria. In discussion with the patient today she reports previously following up with Urology in the past many years ago and underwent further workup of microscopic hematuria with CT and in office cystoscopy. She reports findings were within normal limits. She discusses her father who had renal cancer and her anxiety regarding her own health of potential renal cancer. We did discussed most recent CT abdomen and pelvis with out and with IV contrast 07/13 noted no nephrolithiasis or hydronephrosis. No suspicious renal masses. Pelvic contents are unremarkable. In office urinalysis results reviewed with the patient today 2+ microscopic hematuria will send for urine cytology. We did discussed potential causes of microscopic hematuria as well as further treatment options and risks and benefits of these treatment options. She does report intermittent lower urinary tract symptoms however feels she is managing these symptoms well independently. She currently denies urinary urgency, urinary frequency, incontinence, nocturia, gross/visible hematuria, dysuria, foul smelling urine, changes to urinary stream, flank pain, fever, and or chills. She is happy with her current voiding parameters. I discussed reasons for blood in the urine may include but are not limited to kidney stones, cancer in the urinary tract, kidney stone disease or inflammatory conditions of the urinary tract. I have discussed workup to include cystoscopy evaluation. She would like to continue with surveillance monitoring at this time. All questions were answered. She otherwise offers no other issues or concerns at this time. [facility] Medical History (Updated 10/14/25 @ 08:53 by [facility] False positive stress test Positive hepatitis C antibody test History of COVID-19 Asthma Lumbar disc disease History of kidney stones GERD (gastroesophageal reflux disease) Migraine Restless leg syndrome Hypercholesteremia Surgical History Hx of hemorrhoidectomy Hx of colonoscopy History of left knee replacement Social History Household Members: Family Housing: House Are you a primary wound care rn to a significant other at home: No Do you presently have visiting nurse or other home services: No Patient Tobacco Use Status: Former Tobacco user Second Hand Smoke Exposure: No Advance Directives Date on File: 08/27/20 service: No Review of Systems Const All systems reviewed & are unremarkable except as noted in HPI and below Physical Exam Const General: cooperative, healthy appearing, comfortable, no acute distress, well developed, alert and awake Orientation/consciousness: patient oriented x3 Limitations: no limitations HEENT Head: Yes normal to inspection, Yes normocephalic and Yes atraumatic Ears: hearing grossly normal bilaterally Eyes General: appearance normal, both eyes and all related structures Neck Neck: Yes normal visual inspection and Yes trachea midline Chest Chest palpation & inspection: normal inspection of the chest Resp Effort & Inspection: normal respiratory effort and able to speak in complete sentences Cardio Rate: regular rate GI Inspection: Yes normal to inspection General: Yes no CVA tenderness Back/Spine/Pelvis Back: no CVA tenderness Skin General skin exam: no rashes or lesions noted Neuro General: patient oriented x3 Extrem General: Yes normal to inspection Psych Appearance: grossly normal and well kempt Mental Status: mental status grossly normal Speech and movement: Normal speech and movement present and Clear speech present Affect: normal affect Attitude: cooperative Thought process: Normal thought process present Thought content: Normal thought content present Insight: Fair insight present (Psych) Judgement: Fair judgement present (Psych) Results AMB Urinalysis, Automated UA Leukoctes 0 Marivel/uL Last Edit by EFREN King on 10/13/25 16:46 UA Nitrite Negative Last Edit by Kassandra Niño [facility] on 10/13/25 16:46 UA Urobilinogen 0.2 mg/dL Last Edit by Kassandra Niño [facility] on 10/13/25 16:4 6 UA Protein 0 mg/dL Last Edit by Kassandra Niño [facility] on 10/13/25 16:46 UA pH 6.0 Last Edit by Kassandra Niño [facility] on 10/13/25 16:46 UA Blood 80 Cyril/uL Last Edit by Kassandra Niño [facility] on 10/13/25 16:46 UA Specific Harrold 1.020 Last Edit by Kassandra Niño [facility] on 10/13/25 16: 46 UA Ketone Negative Last Edit by Kassandra Niño [facility] on 10/13/25 16:46 UA Bilirubin 0 mg/dL Last Edit by Kassandra Niño [facility] on 10/13/25 16:46 UA Glucose 0 mg/dL Last Edit by Kassandra Niño [facility] on 10/13/25 16:46 Results Reviewed Results Reviewed: Laboratory Last Values Urine pH (Auto) 6.0 10/13/25 16:45 Specific Harrold (Auto) 1.020 10/13/25 16:45 Urine Protein (Auto) 0 mg/dL 10/13/25 16:45 Glucose (UA)(Auto) 0 mg/dL 10/13/25 16:45 Urine Ketones (Auto) Negative 10/13/25 16:45 Urine Blood (Auto) 80 Cyril/uL 10/13/25 16:45 Urine Nitrite (Auto) Negative 10/13/25 16:45 Urine Bilirubin (Auto) 0 mg/dL 10/13/25 16:45 Urine Urobilinogen (Auto) 0.2 mg/dL 10/13/25 16:45 Leukocyte Esterase (Auto) 0 Marivel/uL 10/13/25 16:45 Date of Service: 07/02/25 Procedure(s): CT abdomen pelvis wo/w IV con Findings: There is scattered ground-glass opacities in the right lower lobe of the lung dependent aspect likely due to atelectasis. Hepatomegaly. Spleen, pancreas, both kidneys, and adrenal glands are unremarkable. No nephrolithiasis or hydronephrosis. No suspicious renal masses. No bowel obstruction, pneumoperitoneum, or pneumatosis. Pelvic contents unremarkable. Normal appendix. No acute fracture. Intraosseous hemangioma L1. IMPRESSION: No acute findings. Assessment & Plan Assessment & Plan (1) Microscopic hematuria: Code(s): R31.29 - Other microscopic hematuria Category: Medical (2) Lower urinary tract symptoms: Code(s): R39.9 - Unspecified symptoms and signs involving the genitourinary system Category: Medical Plan In office urinalysis results with the patient today; as noted above; will send for urine cytology. She currently denies any bothersome urinary issues or concerns. She reports be happy with current voiding parameters. We did discussed potential causes of microscopic hematuria as well as further workup in risks and benefits of these interventions. We discussed bladder triggers and irritants. All questions were answered. Will obtain retroperitoneal ultrasound in 1 year. Follow-up in 1 year with imaging and PVR; or sooner with any issues, concerns, and or questions. Orders: Orders AMB Urinalysis Automated 10/13/25 Z13.9 - Encounter for screening, unspecified US retroperitoneal comp 10/13/25 R31.9 - Hematuria, unspecified Urine Cytology 10/13/25 R31.29 - Other microscopic hematuria Patient Instructions: The patient had an opportunity to ask questions regarding the treatment plan. All questions were answered. Physical exam, labs, and imaging were discussed and reviewed in detail. As well as risks, benefits, and discussion of treatment choices. No major barriers to understanding were identified. The patient expressed understanding and agreement with the above treatment plan. The patient was made aware they should contact our office by phone for worsening of their current condition, the appearance of new symptoms, or with any questions or concerns. Compliance is encouraged with any medications and follow up testing that is ordered. It is a privilege to be allowed the opportunity to participate in? your urological care.? Again, if you have any questions or concerns If you have any questions or concerns please do not hesitate to contact me. The office is [phone]. This note is constructed using voice recognition software. While every effort has been made to ensure accuracy telephone instrument supervisor errors may have been included. Yours sincerely, HENRRY De La Paz-ORAL Coding Level of Care Code New Pt Level 3 (69312) Diagnoses Microscopic hematuria R31.29 Lower urinary tract symptoms R39.9
--- OUTSIDE RECORDS SUMMARY | 2025-10-13 19:00 | XMS_ITS | Patient Health Record ---
[facility] Address [address] [place] [address] Care Team Providers Care Driver Starting Gate Name Role Phone Baldo Flaherty MD Primary Care Provider Cesia Jeffery Unavailable [phone] Allergies Allergen (clinical drug ingredient) Drug/Non Drug [...] Status Risk Notes Problem Acquired hallux valgus (79912068) Hallux valgus (acquired), right foot (M20.11) Active confirmed Plan Of Treatment Pending Test Test Name Order Date X ray : Ankle, right 2V 05/17/2022 X ray : Foot, right 3V 05/17/2022 X ray : Foot, right 3V 01/24/2012 [id number], [id number], JOINT/BURSA 0 01/24/2012 [id number] TENDON SHEATH/LIGAMENT 1 [id number] TENDON SHEATH/LIGAMENT 0 03/25/2015 Insurance Providers Payer Name Payer Address Payer Phone Subscriber Number Group Number Insured Name Patient Relationship to Insured Coverage Start Date Coverage End Date [employer] Benefits [address] [address] [place] [address] [id number] Jefe Alvarez Spouse - patient is the spouse of the insured Medical (General) History Medical History History ICD Code chicken pox measles mumps back, hip, knee pain headaches/migraines reflux Arthritis CAD (Cholesterol) Psoriasis/eczema Joint implants/screws Herniated disc Surgical History Surgery Date(Month/Year) hemorrhoidectomy 1969 total knee surgery, left colonoscopy 2014 herniated disc 2009
--- OUTSIDE RECORDS SUMMARY | 2025-10-13 19:00 | XMS_ITS | Clinical Summary ---
Author Organization [facility] Address [address] [place] [address] [place] [id number] Phone Care Team Providers Care Lard Refiner Name Role Phone Baldo Flaherty MD Primary Care Provider [phone] Oswald Younger MD Unavailable Allergies Active Allergy Reactions Criticality Noted Date Comments Diphenhydramine Hcl Other (See Comments) 2019 Paradoxical agitation Ciprofloxacin 05/17/2022 Other reaction(s): frozen shoulder Levofloxacin Musculoskeletal Pain 06/24/2019 Shoulder tendinitis. Meperidine GI Upset 05/17/2022 Kgahoue-Dgy-Cct Reductase Inhibitors Myalgia 08/22/2018 Medications multivitamins capsule 1 TAB Orally DAILY Active cyclobenzaprine (FLEXERIL) 5 MG tablet Take 1 tablet by mouth as needed. Active triamcinolone acetonide 0.1 % lotion APPLY TO AFFECTED AREA TWICE A DAY 11 08/11/2018 Active valACYclovir (VALTREX) 1000 MG tablet Take 1,000 mg by mouth 3 (three) times a day as needed. 05/15/2020 Active ibuprofen (ADVIL,MOTRIN) 600 MG tablet Take 1 tablet (600 mg total) by mouth daily as needed. 09/03/2020 Active ketoconazole (NIZORAL) 2 % shampoo as needed. 03/30/2021 Active famotidine (PEPCID) 20 MG tablet Take 20 mg by mouth daily as needed for heartburn. Active ondansetron (ZOFRAN) 8 MG tablet TAKE 1 TABLET BY MOUTH EVERY 8 HOURS NEEDED (DAY SUPPLY PER INSURANCE) 07/14/2021 Active omeprazole (PRILOSEC) 40 MG capsule Take 40 mg by mouth daily as needed. 08/31/2022 Active rOPINIRole (REQUIP) 0.25 MG tabletIndicatio ns:Restless legs syndrome Take 1-2 tablets (0.25-0.5 mg total) by mouth nightly at bedtime. 180 tablet 3 10/15/2023 Active cholecalciferol , vitamin D3, 25 mcg (1,000 unit) capsule Take 2,000 Units by mouth daily. 01/24/2024 Active metoprolol succinate (TOPROL-XL) 25 MG 24 hr tablet Take 25 mg by mouth daily. 09/20/2024 Active LORazepam (ATIVAN) 0.5 MG tablet Take 0.5 mg by mouth nightly at bedtime as needed. 09/20/2024 Active guaiFENesin-cod eine (ROBITUSSIN AC) 100-10 mg/5 mL liquidIndicatio ns:Acute cough 5-10 ml po q 6 hours prn cough 250 mL 10/31/2024 Active guaiFENesin-cod eine (ROBITUSSIN AC) 100-10 mg/5 mL liquidIndicatio ns:Acute cough Take 5 mL (10 mg of codeine total) by mouth 3 (three) times a day as needed for cough. 240 mL 04/21/2025 Active albuterol 90 mcg/actuation inhalerIndicati ons:Acute cough Inhale 2 puffs into the lungs every 6 (six) hours as needed for wheezing. 8.5 g 5 04/21/2025 Active butalbital-acet aminophen-caffe ine (FIORICET, ESGIC) 50-325-40 mg per tabletIndicatio ns:History of migraine headaches TAKE 1 TABLET BY MOUTH EVERY 6 HOURS NEEDED FOR HEADACHE 40 tablet 4 07/27/2025 Active Active Problems Problem Noted Date Diagnosed Date Hematuria, undiagnosed cause 05/27/2025 Assessment & Plan (05/27/2025 8:57 AM EDT): She has a known history of chronic hematuria previously following with urology who did a cystoscopy which was negative in 2004. However, for the past few months she has noted associated bladder pain postvoid. She denies any dysuria, increased frequency, vaginal discharge. She denies any new soaps or products, denies new sexual partners. She is afebrile, hemodynamically stable. Her abdomen was soft and nontender without rebound or guarding. Will obtain a UA to rule out UTI, however low suspicion given the chronicity of her symptoms. Will also obtain a CT of the abdomen pelvis given the chronic hematuria. Following these tests, we will likely refer to urology for further assessment. Gastroesophageal reflux disease 07/03/2018 Hyperlipidemia 07/03/2018 Microscopic hematuria 07/03/2018 Overview (09/13/2020): Patient had work-up in 2004 for microscopic hematuria. She also had a repeat work-up by Dr. Odell Ruiz in [address] of the abdomen and pelvis and a cystoscopy. She did have a kidney stone seen on that CAT scan. She also reportedly had a repeat CAT scan done by Loly Gamble NP in 2017 Osteoarthritis 07/03/2018 Pure hypercholesterolemia 07/03/2018 Tubular adenoma 11/19/2009 Overview (08/25/2019): Last colonoscopy 2009 Dr. Younger Encounters Date Type Department Care Team Description 07/27/2025 Telephone [facility] Internal Medicine [address] [place] [address] Baldo Flaherty MD Referral ([facility] Urology) 07/27/2025 Refill [facility] Internal Medicine [address] [place] [address] Baldo Flaherty MD Medication Refill from Last 3 Months Immunizations Immunization Administration Dates Next Due COVID-19 (Pre-09/10) Moderna Vaccine, mRNA, PF 0 03/23/2021,02/23/2021 Hepatitis A, Unspecified 06/24/2008 Pneumococcal conjugate PCV20 10/15/2023 Polio, Unspecified Formulation 06/24/2008 Td (adult) 5 Lf Tetanus Toxoid, PF, Adsorbed ,11/19/2000 Tdap 10/25/2012 Typhoid, unspecified formulation 06/24/2008 Yellow Fever 06/24/2008 Zoster live 04/19/2017 Family History Medical History Relation Comments Diabetes Brother Chronic Lymphocytic Leukemia Father Kidney cancer Father Glaucoma Mother Heart disease Mother Relation Status Comments Brother Alive Daughter 1 Alive Daughter 2 Alive Daughter 3 Alive Father (Age 80) cll in 70s Mother Sister 1 Alive Sister 2 Alive Son Alive Social History Tobacco Use Types Packs/Day Years Used Date Smoking Tobacco: Former Cigarettes 0.3 8 0 07/03/1971 - 07/03/1979 Smokeless Tobacco: Never Tobacco Cessation:Counseling Given: Not Answered Alcohol Use Standard Drinks/Week Comments Yes 0 (1 standard drink = 0.6 oz pur e alcohol) 1-2 drinks, monthly or less Child or Family Care Answer Date Record ed Do you have problems with on e of the following making it difficult for you to work, study, or receive health care? No 10/13/2024 Education Answer Date Recorded Are you interested in more education? Not on waldo e 09/16/2024 Are you concerned about learning? Not on file 09/16/2024 No 09/16/2024 No 09/16/2024 Food Answer Date Recorded Within the past 6 months we worried whether our food would run out before we got money to buy more. Never True 10/13/2024 Within the past 6 months the food we bought just didn't last and we didn't have enough money to get more. Never True Residential Stability Answer Date Recor ded What is your housing situation today? I have brock myeer 10/13/2024 How many times have you move d in the past 12 months? Zero (I did not move) 10/13/2024 Paying for Meds Answer Date Recorded Do you have trouble paying for medicines? No 10/13/2024 Paying Utility Bills Answer Date Record ed Do you have trouble paying your heating or elect ricity bill? No 10/13/2024 Transportation Answer Date Recorded Has the lack of transportati on kept you from medical appointments or from getting medications? No 10/13/2024 Unemployment Answer Date Recorded Are you currently unemployed or working on a part-time or temporary basis, and looking for work? No 09/12/2022 Digital Access Answer Date Recorded No 10/13/2024 Yes 10/13/2024 Do you have reliable internet access at home? Ye s 10/13/2024 Do you have a device (e.g., phone, tablet, computer) with a working camera? Yes 10/13/2024 Intimate Partner Violence Answer Date R ecorded Denied Basic Needs Not on file 10/13/2024 In the past 12 months have y ou been in a relationship with a person who hurts, threatens, or tries to control you? No 10/13/2024 Worried food would run out Not on file 10/13 In the past 12 months have y ou been in a relationship with a person who hurts, threatens, or tries to control you? No 10/13/2024 Comments No Sex and Gender Information Value Date Recorded Sex Assigned at Not on file Legal Sex Female 9:53 PM EDT Gender Identity Not on file Sexual Orientation Not on file Last Filed Vital Signs Vital Sign Reading Time Taken Comments Blood Pressure 128/82 05/27/2025 8:36 AM EDT Pulse 55 05/27/2025 8:36 AM EDT Temperature 36.1 C (97 F) 05/27/2025 8:36 AM EDT Respiratory Rate 12 05/27/2025 8:36 AM EDT Oxygen Saturation 97% 05/27/2025 8:36 AM EDT Inhaled Oxygen Concentration - - Weight 93.4 kg (206 lb) 05/27/2025 8:36 AM EDT Height 159.6 cm (5' 2.84 ) 05/27/2025 8:36 AM ED T Body Mass Index 36.68 05/27/2025 8:36 AM EDT Plan of Treatment Upcoming Encounters Date Type Department Care Team (Late st Contact Info) Description 10/23/2025 8:00 AM EST Office Visit [facility] [address] [place] [address] Baldo Flaherty MD [address] [place] [address] [email or web address] Health Maintenance Due Date Last Done Comments COLOGUARD 2002 FIT TEST 2002 FOBT 2002 SIGMOIDOSCOPY 2002 VIRTUAL COLONOSCOPY 2002 ZOSTER VACCINES (2 of 3) 06/14/2017 04/19/2017 INFLUENZA VACCINE (#1) 2025 COVID-19 VACCINE ( season) 2025 11/28/2021, 03/23/2021, 02/23/2021 DEPRESSION SCREENING 10/13/2025 10/13/2024 MAMMOGRAM 12/18/2026 12/18/2024, 11/20, 12/07/2022, Additional history exists SCREENING FOR DIABETES 10/02/2027 , 09/11/2023, 08/27/2020, Additional history exists COLONOSCOPY 12/12/2027 12/12/2022, 12/21, 08/06/2015 COLORECTAL CANCER SCREENING 12/12/2027 LIPID PANEL 10/02/2029 10/02/2024, 09/19, 10/02/2024, Additional history exists RSV VACCINE (1 - 1-dose 75+ series) 01/24/2032 Adult Td,Tdap Booster 09/12/2032 09/12/2022 , 10/25/2012, 11/19/2000 HEPATITIS A VACCINES Aged Out 06/24/2008 No long er eligible based on patient's age to complete this topic HEPATITIS C SCREENING Completed 04/24/2013 PNEUMOCOCCAL VACCINES (50+ years) Completed 10/15/2023 OSTEOPOROSIS SCREENING INITIAL (ONE-TIME) Completed 12/13/2023, 03/09/2023 SMOKING STATUS SCREENING (Once After 26 Yrs) Completed 05/27/2025 HIB VACCINES Aged Out No longer eligi ble based on patient's age to complete this topic MENINGOCOCCAL VACCINES (ACWY) Aged Out No longer eligible based on patient's age to complete this topic MENINGOCOCCAL VACCINES (B) Aged Out N o longer eligible based on patient's age to complete this topic Medical Devices Not on file Procedures Procedure Name Priority Date/Time Associated Diagnosis Comments HM MAMMOGRAPHY Routine 12/18/2024 8:34 AM EST OUTSIDE HDL Routine 10/02/2024 BD DXA SCREENING Routine 12/13/2023 11:5 6 AM EST Postmenopausal estrogen deficiency OUTSIDE GLUCOSE FASTING Routine 09/11/2023 COLONOSCOPY FOR RESULT ENTRY ONLY Routine 12/12/2022 OUTSIDE HEPATITIS C VIRUS SCREENING Routine 04/24/2013 from Last 3 Months or Most Recently Relevant to Health Maintenance Results * MAMMOGRAPHY FOR RESULT ENTRY ONLY (12/18/2024 8:34 AM EST) Result [facility] Provider HEALTH MAINTENANCE Final Result * Outside HDL (10/02/2024) HDL - External 44 40 - 80 mg/dL EXTERNAL NON-INTERFACED REF LAB Result [facility] Provider LAB BLOOD ORDERABLES Sophia l Result EXTERNAL NON-INTERFACED REF LAB * DXA Screening (12/13/2023 11:56 AM EST) Anatomical Region Laterality Modality Bone Density Bone Density Result [facility] Baldo Flaherty MD IMG BD BONE DENSITY DEXA Sophia l Result * Outside Glucose,Fasting (09/11/2023) Glucose, fasting - External 97 65 - 99 mg/dL Result [facility] Provider LAB BLOOD ORDERABLES Sophia l Result * COLONOSCOPY FOR RESULT ENTRY ONLY (12/12/2022) Result [facility] Baldo Flaherty MD HEALTH MAINTENANCE Edited Res ult - Final * Outside Hepatitis C Virus Screening (04/24/2013) Hepatitis C Screening - External Neg Result [facility] Historical Provider LAB BLOOD ORDERABLES Sophia l Result from Last 3 Months or Most Recently Relevant to Health Maintenance Insurance [facility] [employer] Jayjay ESPINOZA [place] [employer]EF[employer]MIN[employer]AT[employer] Jayjay ESPINO[place] [employer] BENEF[employer] ADMINISTRAT[employer] [place] [id number] [employer] Jayjay ESPINOZA [place] [employer] Jayjay ESPINOZA [place] [facility] [employer] B[employer]EFITS [employer]MINIST[employer]AT[employer] Jayjay ESPINOZA [place] [employer] ADMINISTRATORS [place] [address] [address] [employer] Care Teams Lard Refiner Relationship Specialty Start Date End Date Baldo Flaherty MD [address] [place] [id number] [email or web address] PCP - General 09/06/17 Oswald Younger MD [address] [place] [address] [address] [place] [id number] Internal Medicine 09/03/20 Additional Source Comments The information contained in this document represents components of the legal health record. It is not the complete legal health record.[facility]
--- OUTSIDE RECORDS SUMMARY | 2025-10-13 19:00 | XMS_ITS | Patient Health Record ---
Author Organization [facility] Address [address] [place] [address] Care Team Providers Care Mortgage Processing Clerk Name Role Phone Baldo Flaherty MD Primary Care Provider Oswald Desai Jr Unavailable Allergies Allergen (clinical drug ingredient) Drug/Non Drug Allergy documented on EMR Reaction Allergy Type Onset Date Status diphenhydramine Benadryl Unknown Drug Allergy A ctive levofloxacin Levofloxacin Unknown Drug Allergy A ctive Reason For Referral No Information Medications Medication SIG (Take, Route, Frequency, Duration) Notes Start Date End Date Status Fioricet 50-300-40 MG Capsule 1 capsule as needed Orally every 4 hrs Active Turmeric Active Omeprazole 20 MG Capsule Delayed Release 1 capsule Orally Once a day PRN Active Vitamin D 50 MCG (1999) Tablet Orally Active Ibuprofen 600 MG Tablet 1 tablet Orally Three times a day PRN Active rOPINIRole HCl 0.25 MG Tablet Orally Active Immunizations Vaccine Route Administration Date Status Comme nts Influenza Unknown 11/10/2020 Refused Social History Social History Additional Details Category Social Info Options Details Miscellaneous: Marital status: Occupation: RN Problems Problem Type SNOMED Code ICD Code Onset Dates Problem Status W/U Status Risk Notes Problem Colon cancer screening (867045243) Colon cancer screening (Z12.11) Active confirmed Problem Rectal bleeding (88740716) Rectal bleeding (K62.5) Active confirmed Problem Epigastric pain (25883383) Epigastric pain (R10.13) Active confirmed Problem Computed tomography result abnormal (067725730) Abnormal CT scan, colon (R93.3) Active confirmed Problem Gastroesophageal reflux disease (953750832) GERD without esophagitis (K21.9) Active confirmed Plan Of Treatment Future Test Test Name Order Date COLONOSCOPY 03/25/2015 UPPER GI ENDOSCOPY 11/10/2020 COLONOSCOPY 11/10/2020 COLONOSCOPY 11/23/2022 Insurance Providers Payer Name Payer Address Payer Phone Subscriber Number Group Number Insured Name Patient Relationship to Insured Coverage Start Date Coverage End Date [employer] [place] [address] [address] [place] [address] [id number] CHELSEY BRAXTON Self - patient is [...]
--- OUTSIDE RECORDS SUMMARY | 2025-10-13 19:00 | XMS_ITS | Encounter Summary ---
Author Organization [facility] Address [address] [place] [address] [place] [address] Phone Care Team Providers Care Coach Builder Name Role Phone Baldo Flaherty MD Primary Care Provider [phone] Oswald Younger MD Unavailable [phone] Encounter Details Date Type Department Care Team (Late st Contact Info) Description 10/03/2023 Telephone [employer] [facility] Internal Medicine [address] [place], [place] [id number] Baldo Flaherty MD [address] [place] [address] [email or web address] Social History Tobacco Use Types Packs/Day Years [...] high school, GED, job training, learning the [place]oth[place] language, technical skills, or developing parenting skills)? [...] Description 10/23/2025 8:00 AM EST Office Visit [facility] Internal Medicine [address] [place] [address] Baldo Flaherty MD [address] [place] [address] [email or web address] documented as of this encounter Visit Diagnoses Not on filedocumented in this encounter Additional Health Concerns Assessment Noted Time PHQ-2 Depression Total Score: 0 09/12/20 22 8:20 AM EDT documented as of this encounter Care Teams Coach Builder Relationship Specialty Start Date End Date Baldo Flaherty MD [address] [place] [address] [email or web address] PCP - General 09/06/17 Oswald Younger MD [address] [place] [phone] Internal Medicine 09/03/20 documented as of this encounter Additional Source Comments The information contained in this document represents components of the legal health record. It is not the complete legal health record.[facility]
== END 2025-10-13 16:30 | disposition home or self-care (01) ==
LOC: HO.HUSH 15:20
PROVIDERS: PCP Internal Medicine; Visit Provider Nurse Practitioner Family
DX: Z13.9 Encounter for screening, unspecified (principal)

== ENCOUNTER 2025-10-18 09:34 | Emergency (ER) | payer OTHER, SELFPAY ==
--- NOTE | ~2025-10-18 | CT_ITS ---
CLINICAL HISTORY: Sudden onset right posterior chest pain, tearing --- Additional Notes or Special Instructions: sensation, recent travels 1 month prior, rule out aortic CTA chest with 3-D postprocessing Comparison: CR/NM/SR - XR CHEST 1 VIEW - 09/19/24 11:14 EDT Findings: Study quality is adequate for the diagnosis of pulmonary embolism. No pulmonary embolism. Prominent sized heart. RV/LV ratio is normal. No calcified coronary artery disease. Adequate opacification of the aorta, measuring 155 Hounsfield units in the descending aorta. No aortic dissection or aneurysm. Mild calcified atherosclerotic disease. No lymphadenopathy. No pulmonary pathology. No pneumothorax or pleural effusion. No acute osseous or soft tissue abnormality. Pectus excavatum No acute pathology in the imaged portion of the upper abdomen. Impression: No pulmonary embolism, aortic dissection or other acute findings. This document has been electronically signed by: Kely Collier MD on 10/18/2025 13:15:01
--- NOTE | 2025-10-18 09:37 | ECG_ITS ---
Test Reason : CHEST PAIN Blood Pressure : */* mmHG Vent. Rate : 46 BPM Atrial Rate : 46 BPM P-R Int : 192 ms QRS Dur : 80 ms QT Int : 488 ms P-R-T Axes : 32 -35 5 degrees QTcB Int : 427 ms Sinus bradycardia Left axis deviation Abnormal ECG When compared with ECG of 19-Sep-2024 11:42, No significant change was found Referred By: Kelly Hogue Electronically Signed By: RENÉ FARIA
[2025-10-18 09:41] VITALS: BP 173/83; PULSE 48; RESP 18; TEMP 36.5; O2SAT 99; BMI 35.4
--- OUTSIDE RECORDS SUMMARY | 2025-10-18 10:07 | XMS_ITS | Patient Health Record ---
Author Organization [facility] Address [address] [place] [address] Care Team Providers Care Meter Shop Superintendent Name Role Phone Baldo Flaherty MD Primary Care Provider Oswald Desai Jr Unavailable [phone] Allergies Allergen (clinical drug ingredient) Drug/Non Drug Allergy documented on EMR Reaction Allergy Type Onset Date Status Information temporarily unavailable Benadryl Unknown Drug Allergy Active Information temporarily unavailable Levofloxacin Unknown Drug Allergy Active Reason For Referral No Information Medications Medication [...] Problem Status W/U Status Risk Notes Problem Information temporarily unavailable Colon cancer screening (Z12.11) Active confirmed Problem Information temporarily unavailable Rectal bleeding (K62.5) Active confirmed Problem Information temporarily unavailable Epigastric pain (R10.13) Active confirmed Problem Information temporarily unavailable Abnormal CT scan, colon (R93.3) Active confirmed Problem Information temporarily unavailable GERD without esophagitis (K21.9) Active confirmed Plan Of Treatment Future Test Test Name Order Date COLONOSCOPY 03/25/2015 UPPER GI ENDOSCOPY 11/10/2020 COLONOSCOPY 11/10/2020 COLONOSCOPY 11/23/2022 Insurance Providers Payer Name Payer Address Payer Phone Subscriber Number Group Number Insured Name Patient Relationship to Insured Coverage Start Date Coverage End Date [employer] OF [place] [address] [address] [place] [address] [id number] CHELSEY BRAXTON Self - patient is [...]
--- OUTSIDE RECORDS SUMMARY | 2025-10-18 10:07 | XMS_ITS | Encounter Summary ---
Author Organization [facility] Address [address] [place] [address] [place] [address] Phone Care Team Providers Care Firepot Operator And Tender Name Role Phone Baldo Flaherty MD Primary Care Provider [phone] Oswald Younger MD Unavailable Encounter Details Date Type Department Care Team (Late st Contact Info) Description 10/03/2023 Telephone [employer] [facility] Internal Medicine [address] [place], [place] [phone] Baldo Flaherty MD [address] [place] [address] [email or web address] Social History Tobacco Use Types Packs/Day Years [...] high school, GED, job training, learning the Barb[place] language, technical skills, or developing parenting skills)? [...] Description 10/23/2025 8:00 AM EST Office Visit [facility] Internal Medicine [address] [place] [address] Baldo Flaherty MD [address] [place] [address] [email or web address] documented as of this encounter Visit Diagnoses Not on filedocumented in this encounter Additional Health Concerns Assessment Noted Time PHQ-2 Depression Total Score: 0 09/12/20 22 8:20 AM EDT documented as of this encounter Care Teams Firepot Operator And Tender Relationship Specialty Start Date End Date Baldo Flaherty MD [address] [place] [address] [email or web address] PCP - General 09/06/17 Oswald Younger MD [address] [place] [phone] Internal Medicine 09/03/20 documented as of this encounter Additional Source Comments The information contained in this document represents components of the legal health record. It is not the complete legal health record.[facility]
--- OUTSIDE RECORDS SUMMARY | 2025-10-18 10:07 | XMS_ITS | Clinical Summary ---
Author Organization [facility] Address [address] [place] [address] [place] [address] Phone Care Team Providers Care Superintendent Factory Name Role Phone Baldo Flaherty MD Primary Care Provider [phone] Oswald Younger MD Unavailable Allergies Active Allergy Reactions Criticality Noted Date Comments Diphenhydramine Hcl Other (See Comments) 2019 Paradoxical agitation Ciprofloxacin 05/17/2022 Other reaction(s): frozen shoulder Levofloxacin Musculoskeletal Pain 06/24/2019 Shoulder tendinitis. Meperidine GI Upset 05/17/2022 [id number]-Ybz Reductase Inhibitors Myalgia 08/22/2018 Medications multivitamins capsule [...] Type Department Care Team Description 07/27/2025 Telephone [facility] Internal Medicine [address] [place] [address] Baldo Flaherty MD Referral ([facility]) 07/27/2025 Refill [facility] Internal Medicine [address] [place] [address] Baldo Flaherty MD Medication Refill from Last [...] work, study, or receive health care? No 10/17/2025 Education Answer Date Recorded Are you interested in more education? Not on waldo e 09/16/2024 Are you concerned about learning? Not on file 09/16/2024 No 09/16/2024 No 09/16/2024 Food Answer Date Recorded Within the past 6 months we worried whether our food would run out before we got money to buy more. Never True 10/17/2025 Within the past 6 months the food we bought just didn't last and we didn't have enough money to get more. Never True Residential Stability Answer Date Recor ded What is your housing situation today? I have brock sing 10/17/2025 How many times have you move d in the past 12 months? Zero (I did not move) 10/17/2025 Paying for Meds Answer Date Recorded Do you have trouble paying for medicines? No 10/17/2025 Paying Utility Bills Answer Date Record ed Do you have trouble paying your heating or elect ricity bill? No 10/17/2025 Transportation Answer Date Recorded Has the lack of transportati on kept you from medical appointments or from getting medications? No 10/17/2025 Unemployment Answer Date Recorded Are you currently unemployed or working on a part-time or temporary basis, and looking for work? No 09/12/2022 Digital Access Answer Date Recorded No 10/17/2025 Yes 10/17/2025 Do you have reliable internet access at home? Ye s 10/17/2025 Do you have a device (e.g., phone, tablet, computer) with a working camera? Yes 10/17/2025 Intimate Partner Violence Answer Date R ecorded Denied Basic Needs Not on file 10/17/2025 In the past 12 months have y ou been in a relationship with a person who hurts, threatens, or tries to control you? No 10/17/2025 Worried food would run out Not on file 10/17 In the past 12 months have y ou been in a relationship with a person who hurts, threatens, or tries to control you? No 10/17/2025 Comments No Sex and Gender Information Value [...] Description 10/23/2025 8:00 AM EST Office Visit [facility] Internal Medicine [address] [place] [address] Baldo Flaherty MD [address] [place] [address] [email or web address] Health Maintenance Due Date Last Done Comments COLOGUARD 2002 FIT TEST 2002 FOBT 2002 SIGMOIDOSCOPY 2002 VIRTUAL COLONOSCOPY 2002 ZOSTER VACCINES (2 of 3) 06/14/2017 04/19/2017 INFLUENZA VACCINE (#1) 2025 COVID-19 VACCINE ( season) 2025 11/28/2021, 03/23/2021, 02/23/2021 DEPRESSION SCREENING 10/17/2026 10/17/2025 MAMMOGRAM 12/18/2026 12/18/2024, 11/20, 12/07/2022, Additional history [...] ENTRY ONLY (12/18/2024 8:34 AM EST) Result [facility] Provider HEALTH MAINTENANCE Final Result * Outside HDL (10/02/2024) HDL - External 44 40 - 80 mg/dL EXTERNAL NON-INTERFACED REF LAB Result [facility] Provider LAB BLOOD ORDERABLES Sophia l Result EXTERNAL NON-INTERFACED REF LAB * DXA Screening (12/13/2023 11:56 AM EST) Anatomical Region Laterality Modality Bone Density Bone Density Result [facility] Baldo Flaherty MD IMG BD BONE DENSITY DEXA Sophia l Result * Outside Glucose,Fasting (09/11/2023) Glucose, fasting - External 97 65 - 99 mg/dL Result [facility] Provider LAB BLOOD ORDERABLES Sophia l Result * COLONOSCOPY FOR RESULT ENTRY ONLY (12/12/2022) Result [facility] Baldo Flaherty MD HEALTH MAINTENANCE Edited Res ult - Final * Outside Hepatitis C Virus Screening (04/24/2013) Hepatitis C Screening - External Neg Result [facility] Historical Provider LAB BLOOD ORDERABLES Sophia l Result from Last 3 Months or Most Recently Relevant to Health Maintenance Insurance [facility] [employer] [place]jay [place]ZA [place] [employer] [place] [employer] B[employer] AD[employer] [place]jay [place] [employer] [place] [employer] Valued [place] [id number] Valued Relationships ADMINISTRATORS Jayjay [place] [employer] [place]jay ESPINOZA [place] [facility] [employer] B[employer]EFITS ADMIN[employer] [place]jay ESP[place] [employer] [place] [employer] B[employer]EFITS ADMINISTRATORS [place] [address] [employer] Care Teams Superintendent Factory Relationship Specialty Start Date End Date Baldo Flaherty MD [address] [place] [address] [email or web address] PCP - General 09/06/17 Oswald Younger MD [address] [place] [address] [address] [place] [phone] Internal Medicine 09/03/20 Additional Source Comments The information contained in this document represents components of the legal health record. It is not the complete legal health record.[facility]
--- OUTSIDE RECORDS SUMMARY | 2025-10-18 10:07 | XMS_ITS | Patient Health Record ---
Author Organization [facility] Address [address] [place] [address] Care Team Providers Care Academic Affairs Specialist Name Role Phone Baldo Flaherty MD Primary Care Provider UnavailCesia Romero Unavailable [phone] Allergies Allergen (clinical drug ingredient) Drug/Non Drug Allergy documented on EMR Reaction Allergy Type Onset Date Status Information temporarily unavailable Benadryl hyper Drug Allergy Active Information temporarily unavailable Cipro frozen shoulder Drug Allergy Active Information temporarily unavailable Demerol vomiting Drug Allergy Active Information temporarily unavailable Levaquin frozen shoulder Drug Allergy Active Reason For Referral No [...] Status Risk Notes Problem Information temporarily unavailable Hallux valgus (acquired), right foot (M20.11) Active confirmed Plan Of Treatment Pending Test Test Name Order Date X ray : Ankle, right 2V 05/17/2022 X ray : Foot, right 3V 05/17/2022 X ray : Foot, right 3V 01/24/201264332, [id number]/[id number], JOINT/BURSA 0 01/24/201274166,[id number] TENDON SHEATH/LIGAMENT 1 50,[id number] TENDON SHEATH/LIGAMENT 0 03/25/2015 Insurance Providers Payer Name Payer Address Payer Phone Subscriber Number Group Number Insured Name Patient Relationship to Insured Coverage Start Date Coverage End Date Blue Benefits [address] [address] [place] [address] [id number] Jefe Alvarez Spouse - patient is the spouse of the insured Medical (General) History Medical History History ICD Code chicken pox measles mumps back, hip, knee pain headaches/migraines reflux Arthritis CAD (Cholesterol) Psoriasis/eczema Joint implants/screws Herniated disc Surgical History Surgery Date(Month/Year) hemorrhoidectomy 1970 total knee surgery, left colonoscopy 2014 herniated disc 2009
[2025-10-18 10:21] LABS: MANUAL DIFF FLAG NO
[2025-10-18] MEDS: iohexoL 350 MG/ML 100 ML INFUS..BTL IV (10:24)
[2025-10-18 10:25] LABS: Hematocrit 40.5 % (37.0-47.0); Hemoglobin 13.5 g/dl (12.0-16.0); Imm Gran Abs Auto 0.03 X10*3/uL (0.00-0.03); Imm Gran Pct Auto 0.4 % (0.0-0.4); Lymphocytes Absolute Auto 1.5 X10*3/uL (1.2-4.9); Mean Corpuscular HGB Conc 33.3 g/dl (31.0-35.0); Mean Corpuscular Hemoglobin 31.0 pg (27.0-33.0); Mean Corpuscular Volume 92.9 fL (80.0-98.0); NRBC Abs Auto 0.000 X10*3/uL (0.0-0.012); NRBC Pct Auto 0.0 /100WBC (0.0-0.2); Platelet Count 219 X10*3/uL (160-400); Red Blood Count 4.36 X10*6/uL (4.20-5.50); White Blood Count 7.5 X10*3/uL (4.8-10.8)
[2025-10-18 10:33] LABS: INTERNATIONAL NORM RATIO 0.9 (0.9-1.1); Prothrombin Time 11.3 SEC (11.2-13.5)
[2025-10-18 10:35] LABS: D Dimer High Sensitivity 182 NG/ML
[2025-10-18 10:36] LABS: Partial Thromboplastin Time 28.4 SEC (26.7-34.1)
[2025-10-18 10:43] VITALS: O2SAT 86
[2025-10-18 10:45] LABS: Alanine Aminotransferase 20 U/L (0-31); Albumin Level 4.5 g/dL (3.5-5.0); Alkaline Phosphatase 131 U/L (39-117); Anion Gap 11 (12-20); Aspartate Amino Transferase 26 U/L (5-31); Blood Urea Nitrogen 17 mg/dL (9-16); Calcium 10.1 mg/dL (8.4-10.2); Carbon Dioxide 28 mmol/L (22-29); Chloride 107 mmol/L (96-108); Creatinine Clr Calc Pharmacy 66.1; Estimated Glomerular Filt Rate > 60; Magnesium 2.1 mg/dL (1.6-2.6); Potassium 4.2 mmol/L (3.3-5.1); Sodium 142 mmol/L (135-145); Total Protein 7.4 g/dL (6.5-8.0)
[2025-10-18 10:46] VITALS: O2SAT 97
[2025-10-18 11:01] LABS: NT Pro B Type Natriuretic Pept 59.9 pg/mL (<300); Troponin-I High Sensitivity < 2.7 ng/L (<3.5-17.0)
--- NOTE | 2025-10-18 11:33 | ED_ITS ---
HPI - General Adult General Chief complaint: General Medical Stated complaint: Back Pain Time Seen by Provider: 10/18/25 09:45 Source: patient and family Mode of arrival: ambulatory Limitations: no limitations History of Present Illness ED Provider: Dr. Abdulaziz Toure HPI narrative: 70-year-old female with a history of paroxysmal atrial tachycardia, right hip bursitis, hyperlipidemia, urinary tract infections who presents emergency department for evaluation of sudden onset of right upper back pain. And the patient was in the shower at around 08:00 hours when she had sudden onset of a ripping sensation in her right upper back area. The pain was not worse with movement or breathing. She states she felt lightheaded and dizzy as if she was going to pass out. She states the pain was 8/10 at its worse. Patient took Flexeril 2.5 mg orally with no relief for pain. She continued to feel lightheaded and dizzy so she called her who is a hospitalist here at [facility] [place] who then brought the patient to the emergency department for evaluation. The patient states she was in her usual state of health prior to the onset of her pain. She denied fever, chills, shortness of breath, dyspnea on exertion. She did have associated nausea and lightheadedness with no vomiting. She denied radiation of the pain to her neck or jaw. She states that her right arm did feel ?funny ?. The patient did travel to [place] in August 2025, she has had no swelling or pain in her lower extremities. Related Data Home Medications ?Medication ?Instructions ?Recorded ?Confirmed albuterol sulfate 90 mcg/actuation 1 puff inhalation Q 6H PRN Wheezing 12/03/20 10/14/25 aerosol inhaler (Ventolin HFA) [id number] 1 tab PO Q6H PRN hea dache 12/03/20 10/14/25 50 mg-325 mg-40 mg tablet ropinirole 0.25 mg tablet 1 tab PO BEDTIME 12/03/20 ondansetron HCl 8 mg tablet 1 tab PO Q8H PRN nausea/vo miting 12/11/22 10/14/25 cholecalciferol (vitamin D3) 25 25 mcg PO DAILY 10/14/25 mcg (1,000 unit) capsule ibuprofen 200 mg tablet 600 mg PO DAILY PRN Pain/Hea dache 09/19/24 10/14/25 omeprazole 20 mg capsule,delayed 20 mg PO DAILY@0630 P RN 01/29/25 10/14/25 release Previous Rx's ?Medication ?Instructions ?Recorded metoprolol succinate 25 mg 25 mg PO DAILY 90 days #90 tabs 07/27/25 tablet,extended release 24 hr (Toprol XL) cyclobenzaprine 5 mg tablet 5 mg PO TID PRN muscle spa sm or 10/18/25 pain #20 tabs oxycodone 5 mg tablet 5 mg PO Q4-6H PRN pain #14 t abs 10/18/25 Allergies Allergy/AdvReac Type Severity Reaction Status Date / Time Uknoqth-ELD-QzV Reductase Allergy Intermediate Joint Pain Verified 10/18/25 09:44 Inhibitor diphenhydramine (From Allergy Agitated Verified 10/18/25 09:44 Benadryl) levofloxacin Allergy frozen Verified 10/18/25 09:44 shoulder Review of Systems 2 Review of Systems: Yes all other systems are reviewed and are negative [facility] [place] Past Medical History Medical History (Updated 10/18/25 @ 13:32 by Abdulaziz Toure MD) False positive stress test Positive hepatitis C antibody test History of COVID-19 Asthma Lumbar disc disease History of kidney stones GERD (gastroesophageal reflux disease) Migraine Restless leg syndrome Hypercholesteremia Surgical History Hx of hemorrhoidectomy Hx of colonoscopy History of left knee replacement Social History Social History Household Members: Family Housing: House Are you a primary residential care officer to a significant other at home: No Do you presently have visiting nurse or other home services: No Patient Tobacco Use Status: Former Tobacco user Smoked in Last 30 Days: No Second Hand Smoke Exposure: No Use of substances other than those prescribed or required for medical reasons: No Advance Directives: No Advance Directives Information Provided: No Advance Directives Date on File: 08/27/20 Do you have a plan to hurt others: No Plan service: No Physical Exam ED Vital Signs: Vital Signs - 24 hr 10/18/25 09:41 10/18/25 10:43 10/18/25 10:46 Temperature 97.7 F Pulse Rate 48 L Respiratory Rate 18 Blood Pressure 173/83 H Pulse Oximetry 99 86 L 97 Oxygen Delivery Method Room Air Room Air Nasal Cannula Oxygen Flow Rate 1 10/18/25 11:57 10/18/25 11:58 Temperature Pulse Rate 50 Respiratory Rate 13 13 Blood Pressure 125/67 Pulse Oximetry 99 Oxygen Delivery Method Oxygen Flow Rate BMI result Body Mass Index 35.4 Vital signs revealed low heart rate of 48, elevated blood pressure of 173/83 otherwise unremarkable Exam: General: Awake, alert in no distress Head: Normocephalic, atraumatic EENT: PERRL, sclera and conjunctiva are normal, mouth with no erythema or exudates Neck: Supple, no adenopathy Lung: breath sounds symmetric, no wheezing, no rales and no rhonchi Chest: symmetric movement, nontender Heart: regular rate and rhythm, normal S1, S2 no murmurs or rubs Abdomen: soft, non-tender, nondistended, normal bowel sounds Back: no point vertebral tenderness, no CVAT, no tenderness with palpation over the muscles of her left posterior chest or left neck. Extremities: no deformities, moves all extremities symmetrically, no edema Neuro: Awake, alert, oriented, normal speech, cranial nerves 2-12 intact, moves all extremities symmetrically Psych: Pleasant, cooperative Medications Administered Discontinued Medications Generic Name Dose Route Start Last Admin Trade Name Luciusq PRN Reason Stop Dose Admin Hydromorphone HCl 1 mg 10/18/25 10:08 10/18/25 10:33 Hydromorphone Hcl 1 Mg/Ml Syringe IVPUSH 10/18/25 10:09 1 mg ONCE STA Administration Protocol Hydromorphone HCl 0.5 mg 10/18/25 11:37 10/18/25 11:58 Hydromorphone Hcl 0.5 Mg/0.5 Ml Syringe IVPUSH 10/18/25 11:38 0.5 mg ONCE ONE Administration Protocol Sodium Chloride 1,000 mls @ 999 mls/hr 10/18/25 10:07 10/18/25 12:02 Ns IV 10/18/25 11:07 Infused .Q1H1M STA Infusion Iohexol 100 ml 10/18/25 10:23 10/18/25 10:24 Iohexol 350 Mg/Ml 100 Ml Infus..Btl IV 10/18/25 10:24 85 ml ONCE ONE Administration Ondansetron HCl 4 mg 10/18/25 10:08 10/18/25 10:33 Ondansetron Hcl 4 Mg/2 Ml Vial IVPUSH 10/18/25 10:09 4 mg ONCE ONE Administration Medical Decision Making Medical Decision Making [facility] Narrative: 70-year-old female with a history of paroxysmal atrial tachycardia, right hip bursitis, hyperlipidemia, urinary tract infections who presents emergency department for evaluation of sudden onset of right upper back pain. The patient was in the shower at around 08:00 hours when she had sudden onset of a ripping sensation in her right upper back area. The pain did not change with movement or breathing. She states she felt lightheaded and dizzy as if she was going to pass out. She states the pain was 8/10 at its worse. Patient took Flexeril 2.5 mg orally with no relief for pain. She continued to feel lightheaded and dizzy so she called her who is a hospitalist here at [facility] [place] and she was brought to emergency department for evaluation. Vital signs revealed an elevated blood pressure otherwise unremarkable. Physical examination revealed no significant abnormalities, neurologic exam was normal, she had no tenderness palpation of the muscles of her right upper back. Differential diagnosis: ?Includes but is not limited to pulmonary embolism, aortic dissection, myocardial infarction, myocardial ischemia, musculoskeletal strain/sprain, anemia, electrolyte abnormalities Course: 10:14 I ordered a laboratory evaluation, EKG, CT pulmonary angiogram PE protocol. Patient was treated with Dilaudid 1 mg IV, Zofran 4 mg IV and normal saline IV x1 L. 11:49 Patient's back pain improved from 8/10 to 5/10. She was ordered to get a another dose of Dilaudid 0.5 mg IV. Patient's nausea resolved. My interpretation patient's laboratory evaluation is as follows: CBC was normal. CMP was normal except for an elevated alkaline phos of 131. PT/INR and PTT were normal. D-dimer elevated 182. High sensitive troponin I was below detectable limits. Patient's 12 EKG was unremarkable. 13:55 Patient's back pain is significantly improved in his now 1 to 2/10. CT pulmonary angiogram PE protocol revealed no acute abnormalities which is reassuring. Patient most likely has severe musculoskeletal strain/sprain of her thoracic back muscles which caused her to have near vasovagal syncope. I did discuss this with the patient and the patient's . Patient was advised to take Tylenol and ibuprofen for pain and for pain not relieved by these medications, she was prescribed oxycodone 5 mg every 4-6 hours as needed. The patient is also given a prescription for cyclobenzaprine 5 mg TID PRN pain and spasm. She was given printed and verbal instructions and discharged home. Differential Diagnosis Differential Diagnoses: The differential diagnosis associated with the presentation includes (See above) Admission/Observation Consideration of admission/observation: Escalation of care including admission/observation considered (Yes) Lab Data MDM Lab Attestation statement: I reviewed the patient's lab results. 10/18/25 10:14 10/18/25 10:14 Labs: Lab Results 10/18/25 10/18/25 10/18/25 Range/Units 10:14 10:14 10:14 WBC 7.5 (4.8-10.8) X10*3/uL RBC 4.36 (4.20-5.50) X10*6/uL Hgb 13.5 (12.0-16.0) g/dl Hct 40.5 (37.0-47.0) % MCV 92.9 (80.0-98.0) fL MCH 31.0 (27.0-33.0) pg MCHC 33.3 (31.0-35.0) g/dl RDW 12.6 (11.0-16.0) % Plt Count 219 (160-400) X10*3/uL MPV 10.0 (9.4-12.3) fL Immature Gran % (Auto) 0.4 (0.0-0.4) % Neut % (Auto) 72.4 (45-73) % Lymph % (Auto) 19.7 L (20-40) % Garrett % (Auto) 4.4 (2-11) % Eos % (Auto) 2.7 (0-4) % Baso % (Auto) 0.4 (0-2) % Lymph # (Auto) 1.5 (1.2-4.9) X10*3/uL Garrett # (Auto) 0.3 (0.1-1.2) X10*3/uL Eos # (Auto) 0.2 (0.0-0.4) X10*3/uL Baso # (Auto) 0.0 (0.0-0.2) X10*3/uL Abs Immat Gran (auto) 0.03 (0.00-0.03) X10*3/uL Absolute Neuts (auto) 5.4 (2.0-8.3) x10*3/uL Absolute Nucleated RBC 0.000 (0.0-0.012) X10*3/uL Nucleated RBC % (auto) 0.0 (0.0-0.2) /100WBC PT Cancelled 11.3 INR Cancelled 0.9 APTT 28.4 (26.7-34.1) SEC D-Dimer High Sensitivty 182 NG/ML Sodium 142 (135-145) mmol/L Potassium 4.2 (3.3-5.1) mmol/L Chloride 107 (96-108) mmol/L Carbon Dioxide 28 (22-29) mmol/L Anion Gap 11 L (12-20) BUN 17 H (9-16) mg/dL Creatinine 0.87 (0.5-1.4) mg/dL Estim Creat Clear Calc 66.1 Estimated GFR > 60 Random Glucose 101 (60-115) mg/dL Estimat Average Glucose 114 mg/dL Hemoglobin A1c % 5.6 (<6.0) % Calcium 10.1 D (8.4-10.2) mg/dL Magnesium 2.1 (1.6-2.6) mg/dL Total Bilirubin 0.5 (0.0-1.0) mg/dL AST 26 (5-31) U/L ALT 20 (0-31) U/L Alkaline Phosphatase 131 H (39-117) U/L Troponin I High Sens < 2.7 (<3.5-17.0) ng/L NT-Pro-B Natriuret Pep 59.9 (<300) pg/mL Total Protein 7.4 (6.5-8.0) g/dL Albumin 4.5 (3.5-5.0) g/dL Triglycerides 238 H (<150) mg/dL Cholesterol 313 H (<200) mg/dL LDL Cholesterol, Calc 215 H (<100) mg/dL HDL Cholesterol 51 (>40) mg/dL TSH 1.21 (0.32-4.0) uIU/mL Independent Interpretation I performed an independent interpretation of an: EKG Interpretation: My independent interpretation patient's 12 EKG done on 10/18/2025 at 09:48 hours is as follows: Sinus bradycardia with a rate of 46, normal [place] interval, QRS duration QTC interval, no ST segment elevation, no ST segment depression, no PACs, no PVCs, inverted T-waves in leads 3 and V1. Compared to EKG dated 09/19/2024 at 11:42 hours, inverted T-waves are old, RSR prime old, there is no significant change between these 2 EKGs. Radiology Impression Discussion of test interpretation with radiology: I have reviewed the radiologist's reading. Radiologist Impression: CTA chest with 3-D postprocessing Comparison: CR/KY/SR - XR CHEST 1 VIEW - 09/19/24 11:14 EDT Findings: Study quality is adequate for the diagnosis of pulmonary embolism. No pulmonary embolism. Prominent sized heart. RV/LV ratio is normal. No calcified coronary artery disease. Adequate opacification of the aorta, measuring 155 Hounsfield units in the descending aorta. No aortic dissection or aneurysm. Mild calcified atherosclerotic disease. No lymphadenopathy. No pulmonary pathology. No pneumothorax or pleural effusion. No acute osseous or soft tissue abnormality. Pectus excavatum No acute pathology in the imaged portion of the upper abdomen. Impression: No pulmonary embolism, aortic dissection or other acute findings. This document has been electronically signed by: Kely Collier MD on 10/18/2025 13:15:01 Independent Historian Clinical information obtained from an independent historian. History obtained from or confirmed by: Spouse External Record Review External record reviewed: Inpatient record Prescription Management I considered prescription management with: Pain Medication (I prescribed oxycodone 5 mg every 4-6 hours as needed for pain) and Other (I prescribed anti spasmodic, cyclobenzaprine 5 mg 3 times a day as needed for pain or spasm.) Chronic Conditions Patient?s care impacted by: Other (Asthma, hypercholesterolemia) Critical Care Time Critical Care Time Critical Care Time: Yes Total Critical Care Time: 35 Attestation: Critical Care: The patient was critically ill with a high probability of imminent or life threatening deterioration. I spent greater than 30 minutes of discontinuous time evaluating the patient,delivering critical care at the bedside, discussing and evaluating pertinent data with consultants. Critical care time does not include time spent performing separately billable procedures or teaching. Total time spent performing critical care was 35 minutes. Discharge Plan Discharge Clinical Impression: Acute right-sided thoracic back pain, Near syncope Patient Disposition: Home, Self-Care Additional Instructions: The CT pulmonary angiogram pulmonary embolism protocol did not reveal any significant abnormalities, there were no blood clots in your lungs and there was no evidence for aortic dissection, which is very reassuring There were no significant abnormalities in your blood work to explain your back pain. At this time, I believe that the pain that you were experiencing in your back was caused by musculoskeletal strain/sprain of your back muscles. I also believe that has severity of the pain cause you to get lightheaded , dizzy and almost pass out. Your heart rates that has very low here in the emergency department. This may be related to your metoprolol however you are on a very low dose of this medication for your palpitations and I do not think that you should stop this medication at this time, unless the provide who prescribed this medication recommends stopping or changing your dose. Take ibuprofen 200 mg pills, 2 pills every 6 hours as needed for pain. Take Tylenol (acetaminophen) 500 mg pills, 2 pills every 4-6 hours as needed for pain. For pain not relieved by ibuprofen or Tylenol take oxycodone 5 mg pills, 1 pill every 4-6 hours as needed for pain. Do not drive or work while taking this medication since they can cause sleepiness. Oxycodone is a narcotic medication that can be addicting. If you are concerned about addiction you can ask the pharmacist for less pills or do not get this prescription filled. Take Flexeril (cyclobenzaprine) 5 mg pills, 1 pill every 6-8 hours as needed for pain or spasm. ?This medication will make you sleepy. ?Do not drive or work while taking this medication. Follow-up with your doctor in 2 days. Please return to the emergency department if your symptoms get worse or if you develop any symptoms that are concerning to you. Prescriptions: New oxycodone 5 mg tablet 5 mg PO Q4-6H PRN (Reason: pain) Qty: 14 0RF Rx Instructions: Partial Fill upon patient request. cyclobenzaprine 5 mg tablet 5 mg PO TID PRN (Reason: muscle spasm or pain) Qty: 20 0RF No Action metoprolol succinate [Toprol XL] 25 mg tablet extended release 24 hr 25 mg PO DAILY 90 Days Qty: 90 3RF iysczpblct-nwdqkcdmvyisz-sern 50-325-40 mg tablet 1 tab PO Q6H PRN (Reason: headache) ropinirole 0.25 mg tablet 1 tab PO BEDTIME albuterol sulfate [Ventolin HFA] 90 mcg/actuation HFA aerosol inhaler 1 puff inhalation Q6H PRN (Reason: Wheezing) omeprazole 20 mg capsule,delayed release(DR/EC) 20 mg PO DAILY@0630 PRN ondansetron HCl 8 mg tablet 1 tab PO Q8H PRN (Reason: nausea/vomiting) ibuprofen 200 mg Tablet 600 mg PO DAILY PRN (Reason: Pain/Headache) cholecalciferol (vitamin D3) 25 mcg (1,000 unit) capsule 25 mcg PO DAILY Print Language: Libyan
[2025-10-18 11:57] VITALS: BP 125/67; PULSE 50; RESP 13; O2SAT 99
[2025-10-18 11:58] VITALS: RESP 13
[2025-10-18 13:15] LABS: Cholesterol 313 mg/dL (<200); HDL Cholesterol 51 mg/dL (>40); Triglycerides 238 mg/dL (<150)
[2025-10-18 14:06] VITALS: BP 136/68; PULSE 44; RESP 14; TEMP 36.1; O2SAT 97
== END 2025-10-18 14:11 | disposition home or self-care (01) ==
PROVIDERS: Physician Assistant; Emergency Provider Emergency Medicine Emergency Medical Services; PCP Internal Medicine
DX: M54.6 Pain in thoracic spine (principal); S39.012A Strain of muscle, fascia and tendon of lower back, initial encounter; R55 Syncope and collapse; I48.0 Paroxysmal atrial fibrillation; X58.XXXA Exposure to other specified factors, initial encounter; Y93.89 Activity, other specified; Y92.89 Other specified places as the place of occurrence of the external cause; Y99.8 Other external cause status; Z87.440 Personal history of urinary (tract) infections; Z87.442 Personal history of urinary calculi; Z79.899 Other long term (current) drug therapy
CPT/HCPCS: 36415; 71275; 80053; 80061; 83036; 83735; 83880; 84443; 84484; 85025; 85379; 85610; 85730; 93005; 96361; 96374; 96375; 96376; 99284; 99285; J1171; J2405; Q9967

== ENCOUNTER → 2025-10-18 09:37 | Outpatient (BNV) | payer OTHER, SELFPAY | PROVIDERS: Emergency Provider Emergency Medicine Emergency Medical Services; PCP Internal Medicine; Visit Provider Internal Medicine | DX: R00.1 Bradycardia, unspecified (principal) | CPT/HCPCS: 93010 ==

== ENCOUNTER → 2025-10-18 10:10 | Outpatient (BNV) | payer OTHER, SELFPAY | PROVIDERS: Emergency Provider Emergency Medicine Emergency Medical Services; PCP Internal Medicine; Visit Provider Radiology Diagnostic Radiology | DX: R07.89 Other chest pain (principal) | CPT/HCPCS: 71275 ==